=== PATIENT | female | born 1960 | race Caucasian/White ===

== ENCOUNTER 2019-09-30 18:26 | Emergency (ER) | payer SELFPAY ==
[2019-09-30 19:10] LABS: ABSOLUTE BASOPHILS # (AUTO) 0.1 10^3/uL (0.0-0.2); ABSOLUTE EOSINOPHILS # (AUTO) 0.1 10^3/uL (0.0-0.6); ABSOLUTE LYMPHOCYTES (AUTO) 2.5 10^3/uL (0.5-4.7); ABSOLUTE MONOCYTES (AUTO) 1.1 10^3/uL (0.1-1.4); ABSOLUTE NEUT (AUTO) 12.5 10^3/uL (1.7-8.2); BASOPHILS % (AUTO) 0.5 % (0-2); EOSINOPHILS % (AUTO) 0.4 % (0-6); HEMATOCRIT 39.8 % (36.0-47.0); HEMOGLOBIN 13.2 g/dL (12.0-15.5); LYMPHOCYTES % (AUTO) 15.2 % (13-45); MEAN CORPUSCULAR HEMOGLOBIN 29.9 pg (27.0-33.4); MEAN CORPUSCULAR HGB CONC 33.2 g/dL (32.0-36.0); MEAN CORPUSCULAR VOLUME 90 fl (80-97); PLATELET COUNT 274 10^3/uL (150-450); RED BLOOD COUNT 4.43 10^6/uL (3.72-5.28); RED CELL DISTRIBUTION WIDTH 13.7 % (11.5-14.0); SEGMENTED NEUTROPHILS % (AUTO) 76.9 % (42-78); TOTAL CELLS COUNTED % (AUTO) 100 %; WHITE BLOOD COUNT 16.3 10^3/uL (4.0-10.5)
[2019-09-30 19:29] LABS: ALBUMIN 3.4 g/dL (3.5-5.0); ALKALINE PHOSPHATASE 163 U/L (38-126); ANION GAP 12 (5-19); ASPARTATE AMINO TRANSFERASE 17 U/L (14-36); BILIRUBIN,DIRECT 0.3 mg/dL (0.0-0.4); BILIRUBIN,TOTAL 0.3 mg/dL (0.2-1.3); BLOOD UREA NITROGEN 25 mg/dL (7-20); CALCIUM 9.3 mg/dL (8.4-10.2); CARBON DIOXIDE 22 mmol/L (22-30); CHLORIDE 102 mmol/L (98-107); POTASSIUM 4.1 mmol/L (3.6-5.0); TOTAL PROTEIN 6.4 g/dL (6.3-8.2)
[2019-09-30 19:37] LABS: GLUCOSE 411 mg/dL (75-110)
[2019-09-30] MEDS ORDERED: NORMAL SALINE 1000 ML 1,000 ML IV ONE (19:49)
--- NOTE | 2019-09-30 19:55 | ER Document Report ---
ED Medical Screen (RME) - General Chief Complaint: High Blood Sugar Stated Complaint: WEAKNESS Notes: Patient presents complaining of leg pain and being off her diabetic medications. Patient with elevated blood sugar. I have greeted and performed a rapid initial assessment of this patient. A comprehensive ED assessment and evaluation of the patient, analysis of test results and completion of the medical decision making process will be conducted by additional ED providers. - Related Data Allergies/Adverse Reactions: Penicillins Allergy (Verified 09/30/19 18:52) pregabalin [From Lyrica] Allergy (Verified 09/30/19 18:52) fentanyl Adverse Reaction (Verified 09/30/19 18:52) ketorolac [From Toradol] Adverse Reaction (Verified 09/30/19 18:52) Past Medical History - Past Medical History Cardiac Medical History: Reports: Hx Hypertension Endocrine Medical History: Reports: Hx Diabetes Mellitus Type 2 Past Surgical History: Reports: Hx Orthopedic Surgery - R foot bone biopsy Physical Exam - Vital signs Vitals: Temp Resp BP Pulse Ox 99.4 F 14 177/100 H 100 09/30/19 18:37 09/30/19 18:37 09/30/19 18:37 09/30/19 18:37 - General General appearance: Appears well, Alert Notes: Right lower extremity pain, no obvious edema or wound noted to foot Course - Vital Signs Vital signs: Temp Pulse Resp BP Pulse Ox 99.4 F 17 177/100 H 100 09/30/19 18:37 09/30/19 18:38 09/30/19 18:37 09/30/19 18:38 - Laboratory Result Diagrams: 09/30/19 18:55 09/30/19 18:55 Laboratory results interpreted by me: 09/30/19 09/30/19 09/30/19 18:55 18:55 19:03 WBC 16.3 H Absolute Neuts (auto) 12.5 H Sodium 136.4 L BUN 25 H Glucose 411 H* POC Glucose 389 H Alkaline Phosphatase 163 H Albumin 3.4 L
[2019-09-30 20:03] LABS: VENOUS BLOOD PCO2 38.2 mmHg (35-63); VENOUS BLOOD PH 7.36 (7.30-7.42)
[2019-09-30] MEDS ORDERED: OXYCODONE-ACETAMINOPHEN 5-325 MG TABLET PO ONE ×2 (20:24→23:52)
--- NOTE | 2019-09-30 20:32 | ER Document Report ---
ED General - General Chief Complaint: High Blood Sugar Stated Complaint: WEAKNESS Time Seen by Provider: 09/30/19 20:10 - HPI Notes: Ms. Blackmon is a 59-year-old female with longstanding history of diabetes mellitus type 2, COPD, peripheral vascular disease, osteoarthritis and chronic pain syndrome. She has moved here from [place] recently to live with her daughter and has been here for about 30 days but has yet to find a physician. She is not been on any of her usual medications. She comes in tonight with multiple complaints including high blood sugars, polyuria, generalized weakness and chronic pain which is worsening in both feet right rater than left. Patient reports that she is been on hydrocodone and oxycodone in the past and she is specifically requesting these. States she was treated in the past with Lyrica and did not tolerate this. She says she was previously taking Lantus 28 units at night for her diabetes. Patient denies vomiting, fever, chills or chest pain. She says she is dyspneic with exertion. She denies any sputum production. She is presently smoking 3 to 4 cigarettes/day. - Related Data Allergies/Adverse Reactions: Penicillins Allergy (Verified 09/30/19 18:52) pregabalin [From Lyrica] Allergy (Verified 09/30/19 18:52) fentanyl Adverse Reaction (Verified 09/30/19 18:52) ketorolac [From Toradol] Adverse Reaction (Verified 09/30/19 18:52) Past Medical History - General Information source: Patient - Social History Smoking Status: Current Every Day Smoker Frequency of alcohol use: Rare Drug Abuse: None Lives with: Family Family History: Reviewed & Not Pertinent Patient has suicidal ideation: No Patient has homicidal ideation: No - Past Medical History Cardiac Medical History: Reports: Hx Hypertension Pulmonary Medical History: Reports: Hx COPD Endocrine Medical History: Reports: Hx Diabetes Mellitus Type 2 Musculoskeletal Medical History: Reports Hx Arthritis Past Surgical History: Reports: Hx Section, Hx Hysterectomy, Hx Orthopedic Surgery - R foot bone biopsy Review of Systems - Review of Systems Notes: Constitutional: Negative for fever. HENT: Negative for sore throat. Eyes: Negative for visual changes. Cardiovascular: Negative for chest pain. Respiratory: As per HPI. Gastrointestinal: Negative for abdominal pain, vomiting or diarrhea. Genitourinary: As per HPI. Musculoskeletal: As per HPI. Skin: Negative for rash. Neurological: Negative for headaches, weakness or numbness. 10 point ROS negative except as marked above and in HPI. Physical Exam - Vital signs Vitals: Temp Resp BP Pulse Ox 99.4 F 14 177/100 H 100 09/30/19 18:37 09/30/19 18:37 09/30/19 18:37 09/30/19 18:37 - Notes Notes: GENERAL: Chronically ill-appearing female of approximately stated age who has very flat affect. SKIN: Good turgor no rashes. HEAD: Normocephalic atraumatic. EYES: PERRLA. EOMI. Conjunctivae and sclerae clear. EARS: CANALS AND TMS CLEAR. NOSE: CLEAR. MOUTH: Moist mucosa. Good dentition. No stridor or edema. No drooling. NECK: Supple. No masses or thyromegaly. No adenopathy. Carotids 2+ without b ruits. No JVD. BACK: Symmetrical without tenderness. CHEST: Respirations unlabored. Breath sounds clear and symmetrical. HEART: Regular rhythm. No murmur gallop or rub. ABDOMEN: Mild suprapubic tenderness. Soft without masses, organomegaly or rebound. Bowel sounds normally active. No bruits. GENITALIA: Deferred. EXTREMITIES: No edema. No calf tenderness. Cap refill less than 1.5 seconds. Dorsalis pedis and posterior tibial pulses 1+ + and symmetrical. Feet are warm and well perfused. No ulcerations present. NEUROLOGICAL: GCS 15. Alert and oriented x3. Fluent speech. Cranial nerves II through XII intact. Sensorimotor and cerebellar normal. Normal tone. PSYCHIATRIC: Appropriate affect. Course - Re-evaluation Re-evalutation: 09/30/19 20:34 Patient's blood sugar is elevated but she is not in DKA. Plan at this time is to hydrate her with IV saline. We get her sugar down below 350 I think she can be reasonably managed as an outpatient. Her chest is clear she is oxygenating normally and is in no respiratory distress. She undoubtedly has significant COPD and peripheral vascular disease and has chronic pain syndrome of multifactorial etiology possibly related to peripheral vascular disease and osteoarthritis primarily. I again strongly advised her to stop smoking. Anticipate discharge home and referral to a primary care physician. I have given her 1 dose of oral Percocet here. I am also going to check a urinalysis to be sure she does not have a urinary tract infection. 09/30/19 21:35 After normal saline hydration the patient's blood sugar is 240. She does have evidence of a urinary tract infection. I am going to start her on Macrobid and restart her Lantus. We will refer her to a primary care physician for follow- up. Instructed to stop smoking. We will write 6 tablets of Percocet for her until she can be seen by primary care doctor. - Vital Signs Vital signs: Temp Pulse Resp BP Pulse Ox 98.2 F 22 H 140/75 H 94 09/30/19 21:22 09/30/19 21:01 09/30/19 21:01 09/30/19 21:01 - Laboratory Result Diagrams: 09/30/19 18:55 09/30/19 18:55 Laboratory results interpreted by me: 09/30/19 09/30/19 09/30/19 18:55 18:55 19:03 WBC 16.3 H Absolute Neuts (auto) 12.5 H Sodium 136.4 L BUN 25 H Glucose 411 H* POC Glucose 389 H Alkaline Phosphatase 163 H Albumin 3.4 L Urine Protein Urine Glucose (UA) Urine Blood Urine Ascorbic Acid 09/30/19 09/30/19 20:44 21:27 WBC Absolute Neuts (auto) Sodium BUN Glucose POC Glucose 270 H Alkaline Phosphatase Albumin Urine Protein >=500 H Urine Glucose (UA) >=500 H Urine Blood SMALL H Urine Ascorbic Acid 20 H Discharge - Discharge Clinical Impression: Diabetes mellitus type 2 uncontrolled, Noncompliance, Urinary tract infection, Chronic pain syndrome Condition: Stable Disposition: HOME, SELF-CARE Additional Instructions: Restart prescribed medications. Follow-up with referral doctor soon as possible. Return here as needed. Return here as needed for new or worsening symptoms: Pain that is worsening or unimproved Uncontrolled vomiting High fever or shaking chills Overall worsening Prescriptions: Insulin Glargine,Hum.rec.anlog [Lantus (Pyxis) Insulin 100 Unit/1 ml 10 ml] 28 unit SUBCUT QHS 30 Days #1 bottle Nitrofurantoin/Nitrofuran Mac [Macrobid 100 mg Capsule] 1 tab PO BID #20 capsule Oxycodone HCl/Acetaminophen [Percocet 5-325 mg Tablet] 1 - 2 tab PO Q4H PRN #15 tablet PRN Reason: Oxycodone HCl/Acetaminophen [Percocet 5-325 mg Tablet] 1 - 2 tab PO Q6H PRN #15 tablet PRN Reason: Referrals: [facility] [Provider Group] - Follow up as needed
[2019-09-30 21:12] LABS: APPEARANCE,URINE SLIGHTLY-CLOUDY; BILIRUBIN,URINE NEGATIVE (NEGATIVE); COLOR,URINE YELLOW; GLUCOSE, URINE >=500 mg/dL (NEGATIVE); KETONES,URINE NEGATIVE (NEGATIVE); PROTEIN,URINE >=500 mg/dL (NEGATIVE); URINE SPECIFIC GRAVITY 1.026; UROBILINOGEN,URINE NEGATIVE mg/dL (<2.0)
[2019-10-01 00:15] VITALS: BP 133/98
== END 2019-10-01 00:13 | disposition home or self-care (01) ==
LOC: ER 18:26
DX: E11.65 Type 2 diabetes mellitus with hyperglycemia (principal); E11.51 Type 2 diabetes mellitus with diabetic peripheral angiopathy without gangrene; N39.0 Urinary tract infection, site not specified; G89.4 Chronic pain syndrome; M79.671 Pain in right foot; M79.672 Pain in left foot; J44.9 Chronic obstructive pulmonary disease, unspecified; R53.1 Weakness; I10 Essential (primary) hypertension; F17.210 Nicotine dependence, cigarettes, uncomplicated; R06.09 Other forms of dyspnea; Z88.0 Allergy status to penicillin; Z88.6 Allergy status to analgesic agent
CPT/HCPCS: 99283; 96360; 36415; 87086; 82962; 85025; 87088; 80053; 81001; 87186; 82803; J7030

== ENCOUNTER 2019-10-12 18:10 | Emergency (ER) | payer SELFPAY ==
[2019-10-12 18:42] LABS: ABSOLUTE BASOPHILS # (AUTO) 0.2 10^3/uL (0.0-0.2); ABSOLUTE EOSINOPHILS # (AUTO) 0.1 10^3/uL (0.0-0.6); ABSOLUTE LYMPHOCYTES (AUTO) 2.3 10^3/uL (0.5-4.7); ABSOLUTE NEUT (AUTO) 14.4 10^3/uL (1.7-8.2); BASOPHILS % (AUTO) 1.1 % (0-2); EOSINOPHILS % (AUTO) 0.4 % (0-6); HEMATOCRIT 38.3 % (36.0-47.0); LYMPHOCYTES % (AUTO) 12.9 % (13-45); MEAN CORPUSCULAR HEMOGLOBIN 29.9 pg (27.0-33.4); MEAN CORPUSCULAR HGB CONC 33.9 g/dL (32.0-36.0); MEAN CORPUSCULAR VOLUME 88 fl (80-97); MONOCYTES % (AUTO) 5.7 % (3-13); PLATELET COUNT 183 10^3/uL (150-450); RED BLOOD COUNT 4.34 10^6/uL (3.72-5.28); RED CELL DISTRIBUTION WIDTH 13.4 % (11.5-14.0); SEGMENTED NEUTROPHILS % (AUTO) 79.9 % (42-78); TOTAL CELLS COUNTED % (AUTO) 100 %
[2019-10-12 18:59] LABS: ALBUMIN 2.8 g/dL (3.5-5.0); ALKALINE PHOSPHATASE 135 U/L (38-126); ANION GAP 6 (5-19); ASPARTATE AMINO TRANSFERASE 16 U/L (14-36); BILIRUBIN,TOTAL 0.2 mg/dL (0.2-1.3); BLOOD UREA NITROGEN 34 mg/dL (7-20); CALCIUM 8.2 mg/dL (8.4-10.2); CARBON DIOXIDE 22 mmol/L (22-30); CHLORIDE 103 mmol/L (98-107); POTASSIUM 4.2 mmol/L (3.6-5.0); TOTAL PROTEIN 5.2 g/dL (6.3-8.2)
[2019-10-12 19:10] LABS: GLUCOSE 428 mg/dL (75-110)
--- NOTE | 2019-10-12 20:13 | ER Document Report ---
ED General - General Chief Complaint: High Blood Sugar Stated Complaint: WEAKNESS Time Seen by Provider: 10/12/19 20:10 Mode of Arrival: Medic Information source: Patient TRAVEL OUTSIDE OF THE [place] IN LAST 30 DAYS: No - HPI Onset: Other - patient has been out of her medications for a month but her sugar has been very high in the last few days Onset/Duration: Gradual Quality of pain: Other - patient has chronic back and leg pains Severity: Moderate Pain Level: 3 Associated symptoms: Weakness, Other - high blood sugars, chronic back and leg pains Exacerbated by: Denies Relieved by: Denies Similar symptoms previously: Yes - patient has chronic pain and chronic DM Recently seen / treated by doctor: No Notes: 59 year old female with a history of DM, HTN, COPD, Chronic Back and Leg Pains, Arthritis here for high blood sugars and chronic back and leg pains in the setting of recently moving to the area and not having a doctor or any of her medications. The patient says she has been out of her medications for over a month. The patient endorses some mild chills and subjective fevers yesterday along with some generalized weakness. The patient is asking for pain medications during my exam. - Related Data Allergies/Adverse Reactions: Penicillins Allergy (Verified 09/30/19 18:52) pregabalin [From Lyrica] Allergy (Verified 09/30/19 18:52) fentanyl Adverse Reaction (Verified 09/30/19 18:52) ketorolac [From Toradol] Adverse Reaction (Verified 09/30/19 18:52) Past Medical History - General Information source: Patient - Social History Smoking Status: Current Every Day Smoker Frequency of alcohol use: Occasional Drug Abuse: None Lives with: Family Family History: Reviewed & Not Pertinent Patient has suicidal ideation: No Patient has homicidal ideation: No - Past Medical History Cardiac Medical History: Reports: Hx Hypertension Pulmonary Medical History: Reports: Hx COPD Endocrine Medical History: Reports: Hx Diabetes Mellitus Type 2 Musculoskeletal Medical History: Reports Hx Arthritis Past Surgical History: Reports: Hx Section, Hx Hysterectomy, Hx Orthopedic Surgery - R foot bone biopsy Review of Systems - Review of Systems Constitutional: Chills, Fever, Weakness, Other - high blood sugars EENT: No symptoms reported Cardiovascular: No symptoms reported Respiratory: Cough Gastrointestinal: Abdominal pain Genitourinary: Frequency, Urgency Female Genitourinary: No symptoms reported Musculoskeletal: Other - chronic back and leg pains Skin: No symptoms reported Hematologic/Lymphatic: No symptoms reported Neurological/Psychological: No symptoms reported -: Yes All other systems reviewed and negative Physical Exam - Vital signs Vitals: Resp Pulse Ox 25 H 97 10/12/19 18:49 10/12/19 18:49 - Notes Notes: GENERAL: Well-appearing, well-nourished and in no acute distress. HEAD: Atraumatic, normocephalic. EYES: Pupils equal round and reactive to light, extraocular movements intact, sclera anicteric, conjunctiva are normal. ENT: TMs normal, nares patent, oropharynx clear without exudates. Moist mucous membranes. NECK: Normal range of motion, supple without lymphadenopathy or JVD. LUNGS: Breath sounds clear to auscultation bilaterally and equal. No wheezes r ales or rhonchi. HEART: Regular rate and rhythm without murmurs, rubs or gallops. ABDOMEN: Soft, nontender, normoactive bowel sounds. No guarding, no rebound. No masses appreciated. EXTREMITIES: Normal range of motion, no pitting or edema. No clubbing or cyanosis. NEUROLOGICAL: Cranial nerves II through XII grossly intact. Normal speech, normal gait. PSYCH: Normal mood, normal affect. SKIN: Warm, Dry, normal turgor, no rashes or lesions noted. Course - Re-evaluation Re-evalutation: 10/12/19 22:45 The patient is not in DKA and her hyperglycemia is clearly due to noncompliance. The patient requested pain medications on several occasions and she has a suspect allergy profile. Patient was treated with fluids, Insulin, and Tramadol. Patient's WBC is elevated but no source of infection found in the ER. 10/13/19 00:35 The patient has a UTI by UA. Will culture and treat with 1 week of Cipro since she says she has some back flank pain with her urinary symptoms. Patient's blood sugar came down to the 100s with fluids and insulin. Will refer to local PCPs. Patient also told to go to a pain clinic for her chronic pain issues. - Vital Signs Vital signs: Temp Pulse Resp BP Pulse Ox 16 202/160 H 99 10/12/19 23:04 10/12/19 23:04 10/12/19 23:04 - Laboratory Result Diagrams: 10/12/19 18:27 10/12/19 18:27 Laboratory results interpreted by me: 10/12/19 10/12/19 10/12/19 18:18 18:27 18:27 WBC 18.0 H Lymph % (Auto) 12.9 L Absolute Neuts (auto) 14.4 H Seg Neutrophils % 79.9 H Sodium 131.4 L BUN 34 H Glucose 428 H* POC Glucose 435 H* Calcium 8.2 L Alkaline Phosphatase 135 H Total Protein 5.2 L Albumin 2.8 L Urine Protein Urine Glucose (UA) Urine Blood Ur Leukocyte Esterase 10/12/19 10/12/19 10/12/19 20:19 23:33 23:35 WBC Lymph % (Auto) Absolute Neuts (auto) Seg Neutrophils % Sodium BUN Glucose POC Glucose 319 H 135 H Calcium Alkaline Phosphatase Total Protein Albumin Urine Protein >=500 H Urine Glucose (UA) >=500 H Urine Blood SMALL H Ur Leukocyte Esterase SMALL H Discharge - Discharge Clinical Impression: Hyperglycemia, Noncompliance UTI (urinary tract infection) Qualifiers: Urinary tract infection type: site unspecified Hematuria presence: without hematuria Qualified Code(s): N39.0 - Urinary tract infection, site not specified Hypertension Qualifiers: Hypertension type: essential hypertension Qualified Code(s): I10 - Essential (primary) hypertension Condition: Stable Disposition: HOME, SELF-CARE Instructions: Urinary Tract Infection ([facility]), High Blood Pressure ([facility]), Hyperglycemia ([facility]) Additional Instructions: Take antibiotics as prescribed since you have a UTI. You need a primary care doctor for management of your chronic diseases such as hypertension and diabetes. Call one of the providers listed in your discharge paperwork to set up an outpatient follow up appointment. Consider follow up with a pain clinic for your chronic pain. Prescriptions: Ciprofloxacin HCl [Cipro 500 mg Tablet] 500 mg PO BID #14 tablet Referrals: NORA GARZA MD [ACTIVE STAFF] - Follow up as needed PAYAL HERNANDEZ MD [HONORARY] - Follow up as needed
[2019-10-12] MEDS: NORMAL SALINE 1000 ML 1,000 ML IV PRN ×2 (20:23→21:40)
[2019-10-12] MEDS ORDERED: INSULIN REG, HUMAN 100 UNIT/ML 3 ML VIAL (PYX) SUBCUT ONE (20:49)
[2019-10-12] MEDS ORDERED: TRAMADOL HCL 50 MG TABLET PO ONE (20:53)
--- NOTE | 2019-10-12 22:02 | RADIOLOGY REPORT (SQ) ---
EXAM DESCRIPTION: [facility]: XR CHEST 2 VIEWS Views: 2 CLINICAL HISTORY: 59 years Female; eval for pneumonia; COMPARISON: None. FINDINGS: Lungs: Lungs are clear, with no focal infiltrate, pneumothorax, or pleural effusion. Mediastinum: Heart size is normal. Coronary artery stent is noted. Pacemaker is noted, with intact leads extending into right atrium and ventricle. No mediastinal widening or shift. Bones: Bony structures are unremarkable. IMPRESSION: 1. No acute pulmonary findings 2. Pacemaker 3. Previous coronary artery stent
[2019-10-12 23:53] LABS: APPEARANCE,URINE SLIGHTLY-CLOUDY; BILIRUBIN,URINE NEGATIVE (NEGATIVE); COLOR,URINE YELLOW; GLUCOSE, URINE >=500 mg/dL (NEGATIVE); KETONES,URINE NEGATIVE (NEGATIVE); LEUKOCYTE ESTERASE,URINE SMALL (NEGATIVE); NITRITE,URINE NEGATIVE (NEGATIVE); PROTEIN,URINE >=500 mg/dL (NEGATIVE); URINE SPECIFIC GRAVITY 1.011; UROBILINOGEN,URINE NEGATIVE mg/dL (<2.0)
[2019-10-13 00:03] LABS: URINE AMPHETAMINES SCREEN NEGATIVE; URINE BARBITURATES SCREEN NEGATIVE; URINE BENZODIAZEPINES SCREEN NEGATIVE; URINE COCAINE SCREEN NEGATIVE; URINE MARIJUANA (THC) SCREEN NEGATIVE; URINE METHADONE SCREEN NEGATIVE; URINE PHENCYCLIDINE SCREEN NEGATIVE
[2019-10-13] MEDS ORDERED: HYDROCODONE/ACETAMINOPHEN 5-325 MG TABLET PO ONE (00:39)
[2019-10-13] MEDS ORDERED: METOPROLOL TARTRATE 100 MG TABLET PO ONE (00:41)
[2019-10-13 01:19] VITALS: BP 162/70
== END 2019-10-13 01:19 | disposition home or self-care (01) ==
LOC: ER 18:10
DX: N39.0 Urinary tract infection, site not specified (principal); E11.65 Type 2 diabetes mellitus with hyperglycemia; F17.200 Nicotine dependence, unspecified, uncomplicated; I10 Essential (primary) hypertension; J44.9 Chronic obstructive pulmonary disease, unspecified; G89.29 Other chronic pain; Z90.710 Acquired absence of both cervix and uterus; Z88.0 Allergy status to penicillin
CPT/HCPCS: 99284; 96360; 96361; 36415; 87086; 82962; 85025; 87088; 80053; 81001; 80307; 71046; J1815; J7030; 87186

== ENCOUNTER 2019-10-20 20:01 | Emergency (ER) | payer SELFPAY ==
[2019-10-20 21:17] LABS: ABSOLUTE BASOPHILS # (AUTO) 0.1 10^3/uL (0.0-0.2); ABSOLUTE EOSINOPHILS # (AUTO) 0.1 10^3/uL (0.0-0.6); ABSOLUTE LYMPHOCYTES (AUTO) 3.4 10^3/uL (0.5-4.7); ABSOLUTE MONOCYTES (AUTO) 0.9 10^3/uL (0.1-1.4); ABSOLUTE NEUT (AUTO) 13.6 10^3/uL (1.7-8.2); BASOPHILS % (AUTO) 0.4 % (0-2); EOSINOPHILS % (AUTO) 0.7 % (0-6); HEMATOCRIT 43.9 % (36.0-47.0); HEMOGLOBIN 14.8 g/dL (12.0-15.5); LYMPHOCYTES % (AUTO) 18.6 % (13-45); MEAN CORPUSCULAR HEMOGLOBIN 30.1 pg (27.0-33.4); MEAN CORPUSCULAR HGB CONC 33.7 g/dL (32.0-36.0); MEAN CORPUSCULAR VOLUME 89 fl (80-97); MONOCYTES % (AUTO) 5.1 % (3-13); PLATELET COUNT 258 10^3/uL (150-450); RED BLOOD COUNT 4.91 10^6/uL (3.72-5.28); RED CELL DISTRIBUTION WIDTH 14.2 % (11.5-14.0); SEGMENTED NEUTROPHILS % (AUTO) 75.2 % (42-78); TOTAL CELLS COUNTED % (AUTO) 100 %
[2019-10-20 21:31] LABS: ALBUMIN 3.3 g/dL (3.5-5.0); ALKALINE PHOSPHATASE 170 U/L (38-126); ANION GAP 10 (5-19); ASPARTATE AMINO TRANSFERASE 18 U/L (14-36); BILIRUBIN,DIRECT 0.3 mg/dL (0.0-0.4); BILIRUBIN,TOTAL 0.3 mg/dL (0.2-1.3); BLOOD UREA NITROGEN 35 mg/dL (7-20); CALCIUM 9.5 mg/dL (8.4-10.2); CARBON DIOXIDE 24 mmol/L (22-30); CHLORIDE 97 mmol/L (98-107); POTASSIUM 4.9 mmol/L (3.6-5.0); TOTAL PROTEIN 6.1 g/dL (6.3-8.2)
[2019-10-20 21:41] LABS: GLUCOSE 535 mg/dL (75-110)
[2019-10-20 21:59] LABS: APPEARANCE,URINE CLEAR; BILIRUBIN,URINE NEGATIVE (NEGATIVE); COLOR,URINE STRAW; GLUCOSE, URINE >=500 mg/dL (NEGATIVE); KETONES,URINE NEGATIVE (NEGATIVE); LEUKOCYTE ESTERASE,URINE NEGATIVE (NEGATIVE); NITRITE,URINE NEGATIVE (NEGATIVE); PROTEIN,URINE >=500 mg/dL (NEGATIVE); URINE SPECIFIC GRAVITY 1.023; UROBILINOGEN,URINE NEGATIVE mg/dL (<2.0)
[2019-10-20] MEDS ORDERED: INSULIN REG, HUMAN 100 UNIT/ML 3 ML VIAL (PYX) SUBCUT ONE (23:52)
[2019-10-20] MEDS ORDERED: NORMAL SALINE 1000 ML 1,000 ML IV ONE (23:53)
[2019-10-21] MEDS ORDERED: TRAMADOL HCL 50 MG TABLET PO ONE (00:22)
[2019-10-21] MEDS ORDERED: INSULIN REG, HUMAN 100 UNIT/ML 3 ML VIAL (PYX) SUBCUT ONE (00:53)
--- NOTE | 2019-10-21 00:56 | ER Document Report ---
ED General - General Chief Complaint: Abdominal Pain Stated Complaint: ABDOMINAL PAIN,HEADACHE Time Seen by Provider: 10/20/19 23:29 TRAVEL OUTSIDE OF THE [place] IN LAST 30 DAYS: Yes - Related Data Allergies/Adverse Reactions: Penicillins Allergy (Verified 09/30/19 18:52) pregabalin [From Lyrica] Allergy (Verified 09/30/19 18:52) fentanyl Adverse Reaction (Verified 09/30/19 18:52) ketorolac [From Toradol] Adverse Reaction (Verified 09/30/19 18:52) Past Medical History - Social History Smoking Status: Current Every Day Smoker Chew tobacco use (# tins/day): No Frequency of alcohol use: None Drug Abuse: None Family History: Reviewed & Not Pertinent Patient has suicidal ideation: No Patient has homicidal ideation: No - Past Medical History Cardiac Medical History: Reports: Hx Hypercholesterolemia, Hx Hypertension Pulmonary Medical History: Reports: Hx COPD Endocrine Medical History: Reports: Hx Diabetes Mellitus Type 2 Musculoskeletal Medical History: Reports Hx Arthritis Psychiatric Medical History: Reports: Hx Depression Past Surgical History: Reports: Hx Section, Hx Hysterectomy, Hx Orthope dic Surgery - R foot bone biopsy Review of Systems - Review of Systems Constitutional: No symptoms reported EENT: No symptoms reported Cardiovascular: No symptoms reported Respiratory: No symptoms reported Gastrointestinal: Abdominal pain Genitourinary: No symptoms reported Female Genitourinary: No symptoms reported Musculoskeletal: No symptoms reported Skin: No symptoms reported Hematologic/Lymphatic: No symptoms reported Neurological/Psychological: No symptoms reported -: Yes All other systems reviewed and negative Physical Exam - Vital signs Vitals: Pulse Ox 96 10/20/19 20:10 - Notes Notes: GENERAL: Well-appearing, well-nourished and in no acute distress. HEAD: Atraumatic, normocephalic. EYES: Pupils equal round and reactive to light, extraocular movements intact, sclera anicteric, conjunctiva are normal. ENT: TMs normal, nares patent, oropharynx clear without exudates. Moist mucous membranes. NECK: Normal range of motion, supple without lymphadenopathy or JVD. LUNGS: Breath sounds clear to auscultation bilaterally and equal. No wheezes rales or rhonchi. HEART: Regular rate and rhythm without murmurs, rubs or gallops. ABDOMEN: Soft, mild diffuse tenderness which seems subjective on exam. Normoactive bowel sounds. No guarding, no rebound. No masses appreciated. EXTREMITIES: Normal range of motion, no pitting or edema. No clubbing or cyanosis. NEUROLOGICAL: Cranial nerves II through XII grossly intact. Normal speech, normal gait. PSYCH: Normal mood, normal affect. SKIN: Warm, Dry, normal turgor, no rashes or lesions noted. Course - Re-evaluation Re-evalutation: 10/21/19 02:00 The patient has diabetes and she does not take any medications due to financial issues. The patient also has chronic pain in her back legs and abdomen. I saw the patient for the same issues on Oct 12 and I provided her with PCP follow up with a script for Cipro. The patient did not follow up and she did not fill the script for Cipro. Patient requested pain medication her entire ER stay once again this visit. The patient was once again provided with information for PCP follow up. Patient was treated with fluids and insulin until her blood sugar came down to the 100s. The patient has had a stable high leukocytosis for 2 months now. Her urine culture from Oct 12 grew out enterococcus which is susceptile to Cipro and Bactrim. Patient claims she cannot afford Cipro so will given bactrim today. - Vital Signs Vital signs: Temp Pulse Resp BP Pulse Ox 97.7 F 97 26 H 127/83 H 95 10/20/19 23:01 10/20/19 20:19 10/21/19 01:01 10/21/19 01:01 10/21/19 01:01 - Laboratory Result Diagrams: 10/20/19 20:00 10/20/19 20:00 Laboratory results interpreted by me: 10/20/19 10/20/19 10/20/19 20:00 20:00 21:20 WBC 18.0 H RDW 14.2 H Absolute Neuts (auto) 13.6 H Sodium 131.2 L Chloride 97 L BUN 35 H Est GFR (MDRD) Non-Af 57 L Glucose 535 H* POC Glucose Alkaline Phosphatase 170 H Total Protein 6.1 L Albumin 3.3 L Lipase 500.4 H Urine Protein >=500 H Urine Glucose (UA) >=500 H 10/21/19 01:44 WBC RDW Absolute Neuts (auto) Sodium Chloride BUN Est GFR (MDRD) Non-Af Glucose POC Glucose 187 H Alkaline Phosphatase Total Protein Albumin Lipase Urine Protein Urine Glucose (UA) Discharge - Discharge Clinical Impression: Hyperglycemia Leukocytosis Qualifiers: Leukocytosis type: unspecified Qualified Code(s): D72.829 - Elevated white blood cell count, unspecified Abdominal pain Qualifiers: Abdominal location: generalized Qualified Code(s): R10.84 - Generalized abdominal pain Condition: Stable Disposition: HOME, SELF-CARE Instructions: Abdominal Pain ([facility]), Diabetes ([facility]) Additional Instructions: You have several chronic conditions including but not limited to diabetes and chronic pain. You absolutely need to follow up with a primary care doctor (several are listed) for management of your diabetes and chronic pain. You need to be on important medications such as insulin and you need a primary care doctor to prescribe this for you based on your hemoglobin A1C level and previous doses. Prescriptions: Sulfamethoxazole/Trimethoprim [Bactrim Ds Tablet] 2 tab PO BID #28 tablet
[2019-10-21] MEDS ORDERED: INSULIN GLARGINE,HUM.REC.ANLOG 1,000 UNIT/10 ML VIAL SUBCUT SCH (08:00)
[2019-10-21 10:49] VITALS: BP 145/86
== END 2019-10-21 10:27 | disposition home or self-care (01) ==
LOC: ER 20:01
DX: R10.84 Generalized abdominal pain (principal); M54.9 Dorsalgia, unspecified; M79.604 Pain in right leg; M79.605 Pain in left leg; G89.29 Other chronic pain; E11.65 Type 2 diabetes mellitus with hyperglycemia; R82.71 Bacteriuria; T36.8X6A Underdosing of other systemic antibiotics, initial encounter; Z91.120 Patient's intentional underdosing of medication regimen due to financial hardship; Z91.14 Patient's other noncompliance with medication regimen; D72.829 Elevated white blood cell count, unspecified; I10 Essential (primary) hypertension; J44.9 Chronic obstructive pulmonary disease, unspecified; Z88.0 Allergy status to penicillin; Z88.6 Allergy status to analgesic agent; Z59.0 Homelessness
CPT/HCPCS: 36415; 82962; 83605; 83690; 85025; 80053; 81001; J1815; J7030

== ENCOUNTER 2019-10-28 07:02 | Emergency (ER) | payer SELFPAY ==
[2019-10-28] MEDS ORDERED: OXYCODONE-ACETAMINOPHEN 5-325 MG TABLET PO ONE (08:36)
--- NOTE | 2019-10-28 09:21 | RADIOLOGY REPORT (SQ) ---
EXAM DESCRIPTION: CHEST 2 VIEWS COMPLETED DATE/TIME: 10/28/2019 9:13 am REASON FOR STUDY: sob/cough COMPARISON: 10/12/2019 EXAM PARAMETERS: NUMBER OF VIEWS: two views TECHNIQUE: Digital Frontal and Lateral radiographic views of the chest acquired. RADIATION DOSE: NA LIMITATIONS: none FINDINGS: LUNGS AND PLEURA: No opacities, masses or pneumothorax. No pleural effusion. MEDIASTINUM AND HILAR STRUCTURES: No masses or contour abnormalities. HEART AND VASCULAR STRUCTURES: Heart normal size. No evidence for failure. BONES: No acute findings. HARDWARE: Battery pack and leads remain in place. OTHER: No other significant finding. IMPRESSION: NO ACUTE RADIOGRAPHIC FINDING IN THE CHEST. TECHNICAL DOCUMENTATION: JOB ID: [id number] 2010 [employer]- All Rights Reserved Reading location - IP/workstation name: [email or web address]
[2019-10-28 11:06] LABS: ALBUMIN 3.2 g/dL (3.5-5.0); ALKALINE PHOSPHATASE 151 U/L (38-126); ANION GAP 8 (5-19); ASPARTATE AMINO TRANSFERASE 23 U/L (14-36); BILIRUBIN,DIRECT 0.1 mg/dL (0.0-0.4); BILIRUBIN,TOTAL 0.4 mg/dL (0.2-1.3); BLOOD UREA NITROGEN 46 mg/dL (7-20); CARBON DIOXIDE 24 mmol/L (22-30); CHLORIDE 97 mmol/L (98-107); GLUCOSE 357 mg/dL (75-110); POTASSIUM 5.1 mmol/L (3.6-5.0); TOTAL PROTEIN 6.1 g/dL (6.3-8.2)
[2019-10-28 11:18] LABS: TROPONIN I 0.013 ng/mL
[2019-10-28] MEDS ORDERED: HYDROMORPHONE HCL INJ/PF 2 MG/ML AMPULE IM ONE (12:21)
[2019-10-28 12:45] LABS: ABSOLUTE BASOPHILS # (AUTO) 0.1 10^3/uL (0.0-0.2); ABSOLUTE EOSINOPHILS # (AUTO) 0.1 10^3/uL (0.0-0.6); ABSOLUTE LYMPHOCYTES (AUTO) 2.7 10^3/uL (0.5-4.7); ABSOLUTE MONOCYTES (AUTO) 0.9 10^3/uL (0.1-1.4); ABSOLUTE NEUT (AUTO) 7.2 10^3/uL (1.7-8.2); BASOPHILS % (AUTO) 0.5 % (0-2); EOSINOPHILS % (AUTO) 0.9 % (0-6); HEMOGLOBIN 12.9 g/dL (12.0-15.5); LYMPHOCYTES % (AUTO) 24.8 % (13-45); MEAN CORPUSCULAR HEMOGLOBIN 29.7 pg (27.0-33.4); MEAN CORPUSCULAR HGB CONC 33.8 g/dL (32.0-36.0); MEAN CORPUSCULAR VOLUME 88 fl (80-97); MONOCYTES % (AUTO) 8.4 % (3-13); PLATELET COUNT 166 10^3/uL (150-450); RED BLOOD COUNT 4.32 10^6/uL (3.72-5.28); RED CELL DISTRIBUTION WIDTH 13.6 % (11.5-14.0); SEGMENTED NEUTROPHILS % (AUTO) 65.4 % (42-78); TOTAL CELLS COUNTED % (AUTO) 100 %
[2019-10-28 13:57] LABS: APPEARANCE,URINE CLOUDY; BILIRUBIN,URINE NEGATIVE (NEGATIVE); COLOR,URINE YELLOW; GLUCOSE, URINE >=500 mg/dL (NEGATIVE); KETONES,URINE NEGATIVE (NEGATIVE); PROTEIN,URINE >=500 mg/dL (NEGATIVE); URINE SPECIFIC GRAVITY 1.022; UROBILINOGEN,URINE NEGATIVE mg/dL (<2.0)
--- NOTE | 2019-10-28 14:19 | ER Document Report ---
ED General - General Chief Complaint: High Blood Sugar Stated Complaint: REPORTS HIGH BLOOD SUGAR Time Seen by Provider: 10/28/19 07:58 Mode of Arrival: Ambulatory Information source: Patient TRAVEL OUTSIDE OF THE U.S. IN LAST 30 DAYS: No - HPI Notes: Patient presents complaining of generalized body aches high blood sugar and some lower abdominal cramping. She states this is been going on for about 1 month. She states that she had Medicaid in [place] but not in [place]. She left [place] 1 month ago approximately. She states she has been without her medicines for approximately 1 month due to not having insurance. She says she was recently diagnosed with a urinary tract infection but cannot afford the antibiotics. She states she has not been taking her insulin but has been taking her metformin. She has had no vomiting or diarrhea. She has had generalized body aches and has been unable to take her pain medication because she ran out. The body aches are moderate. They radiate throughout her body. They are worse with exertion and better with rest. - Related Data Allergies/Adverse Reactions: Penicillins Allergy (Verified 10/28/19 08:10) pregabalin [From Lyrica] Allergy (Verified 10/28/19 08:10) fentanyl Adverse Reaction (Verified 10/28/19 08:10) ketorolac [From Toradol] Adverse Reaction (Verified 10/28/19 08:10) Past Medical History - General Information source: Patient - Social History Smoking Status: Current Every Day Smoker Frequency of alcohol use: None Drug Abuse: None Family History: Reviewed & Not Pertinent Patient has suicidal ideation: No Patient has homicidal ideation: No - Past Medical History Cardiac Medical History: Reports: Hx Hypercholesterolemia, Hx Hypertension Pulmonary Medical History: Reports: Hx COPD Endocrine Medical History: Reports: Hx Diabetes Mellitus Type 2 Musculoskeletal Medical History: Reports Hx Arthritis Psychiatric Medical History: Reports: Hx Depression Past Surgical History: Reports: Hx Section, Hx Hysterectomy, Hx Orthopedic Surgery - R foot bone biopsy Review of Systems - Review of Systems Constitutional: Malaise, Weakness. denies: Chills, Fever Cardiovascular: denies: Chest pain, Palpitations Respiratory: denies: Cough, Short of breath -: Yes All other systems reviewed and negative Physical Exam - Vital signs Vitals: Temp Pulse Resp BP Pulse Ox 98.0 F 88 16 112/68 98 10/28/19 07:45 10/28/19 07:45 10/28/19 07:45 10/28/19 07:45 10/28/19 07:45 Interpretation: Normal - General General appearance: Appears well, Alert - HEENT Head: Normocephalic, Atraumatic Eyes: Normal Pupils: PERRL - Respiratory Respiratory status: No respiratory distress Chest status: Nontender Breath sounds: Normal Chest palpation: Normal - Cardiovascular Rhythm: Regular Heart sounds: Normal auscultation Murmur: No - Abdominal Inspection: Normal Distension: No distension Bowel sounds: Normal Tenderness: Tender - Mild bilateral lower quadrants. No rebound or guarding. Organomegaly: No organomegaly - Back Back: Normal, Nontender - Extremities General upper extremity: Normal inspection, Nontender, Normal color, Normal ROM, Normal temperature General lower extremity: Normal inspection, Nontender, Normal color, Normal ROM, Normal temperature, Normal weight bearing. No: Radha's sign - Neurological Neuro grossly intact: Yes Cognition: Normal Orientation: AAOx4 Baltazar Coma Scale Eye Opening: Spontaneous Baltazar Coma Scale Verbal: Oriented Baltazar Coma Scale Motor: Obeys Commands Baltazar Coma Scale Total: 15 Speech: Normal Motor strength normal: LUE, RUE, LLE, RLE Sensory: Normal - Psychological Associated symptoms: Normal affect, Normal mood - Skin Skin Temperature: Warm Skin Moisture: Dry Skin Color: Normal Course - Re-evaluation Re-evalutation: 10/28/19 14:16 Patient presents with multiple complaints. She does appear to have a urinary tract infection. I will discharge her with a prescription for Bactrim since this is on the $4 list. Patient is also been seen by social work here and an Adult Protective Services consult has been initiated. Patient will be given a prescription for her pain medication as well. I do not feel comfortable giving the patient insulin as she is unsure of the dose and has no way to check her blood sugars at home at this time. I am going to refer her to the [facility] in hopes that she can get in and obtain the material she needs to probably manage her diabetes. She is currently on metformin and her blood sugars are approximately 300 which in the short-term seems reasonable until she can get into the [facility]. - Vital Signs Vital signs: Temp Pulse Resp BP Pulse Ox 98.0 F 88 14 138/64 H 98 10/28/19 07:45 10/28/19 07:45 10/28/19 13:01 10/28/19 13:01 10/28/19 13:01 - Laboratory Result Diagrams: 10/28/19 12:27 10/28/19 10:29 Laboratory results interpreted by me: 10/28/19 10/28/19 10/28/19 10:29 10:29 12:27 WBC 11.0 H Sodium 129.0 L Potassium 5.1 H Chloride 97 L BUN 46 H Est GFR (MDRD) Non-Af 57 L Glucose 357 H Alkaline Phosphatase 151 H NT-Pro-B Natriuret Pep 375 H Total Protein 6.1 L Albumin 3.2 L Urine Protein Urine Glucose (UA) Urine Blood Leukocyte Esterase Rfl 10/28/19 13:00 WBC Sodium Potassium Chloride BUN Est GFR (MDRD) Non-Af Glucose Alkaline Phosphatase NT-Pro-B Natriuret Pep Total Protein Albumin Urine Protein >=500 H Urine Glucose (UA) >=500 H Urine Blood SMALL H Leukocyte Esterase Rfl TRACE H Discharge - Discharge Clinical Impression: Hyperglycemia UTI (urinary tract infection) Qualifiers: Urinary tract infection type: acute cystitis Hematuria presence: without hematuria Qualified Code(s): N30.00 - Acute cystitis without hematuria Condition: Stable Disposition: HOME, SELF-CARE Instructions: Trimethoprim-Sulfa ([facility]), Urinary Tract Infection ([facility]) Additional Instructions: Please call the [facility] as soon as possible to obtain follow-up Prescriptions: Sulfamethoxazole/Trimethoprim [Bactrim Ds Tablet] 1 each PO BID 7 Days #14 tablet Oxycodone HCl/Acetaminophen [Percocet 5-325 mg Tablet] 1 tab PO Q6 3 Days #12 tablet
[2019-10-28 14:39] VITALS: BP 124/58
== END 2019-10-28 14:59 | disposition home or self-care (01) ==
LOC: ER 07:02
DX: E11.65 Type 2 diabetes mellitus with hyperglycemia (principal); T38.3X6A Underdosing of insulin and oral hypoglycemic [antidiabetic] drugs, initial encounter; N30.00 Acute cystitis without hematuria; T36.96XA Underdosing of unspecified systemic antibiotic, initial encounter; Z91.120 Patient's intentional underdosing of medication regimen due to financial hardship; Z91.14 Patient's other noncompliance with medication regimen; Z79.84 Long term (current) use of oral hypoglycemic drugs; R53.81 Other malaise; R53.1 Weakness; I10 Essential (primary) hypertension; F17.200 Nicotine dependence, unspecified, uncomplicated; J44.9 Chronic obstructive pulmonary disease, unspecified; Z88.0 Allergy status to penicillin; Z88.6 Allergy status to analgesic agent
CPT/HCPCS: 36415; 85025; 80053; 81001; 84484; 83880; 71046; J1170; 87086; 87088; 96372; 99284

== ENCOUNTER 2019-11-20 10:13 | Inpatient (IN) | payer SELFPAY ==
[2019-11-20 10:51] LABS: ABSOLUTE BASOPHILS # (AUTO) 0.1 10^3/uL (0.0-0.2); ABSOLUTE LYMPHOCYTES (AUTO) 2.4 10^3/uL (0.5-4.7); ABSOLUTE NEUT (AUTO) 7.1 10^3/uL (1.7-8.2); BASOPHILS % (AUTO) 0.8 % (0-2); EOSINOPHILS % (AUTO) 0.4 % (0-6); HEMATOCRIT 39.4 % (36.0-47.0); HEMOGLOBIN 13.2 g/dL (12.0-15.5); LYMPHOCYTES % (AUTO) 22.5 % (13-45); MEAN CORPUSCULAR HEMOGLOBIN 30.2 pg (27.0-33.4); MEAN CORPUSCULAR HGB CONC 33.5 g/dL (32.0-36.0); MEAN CORPUSCULAR VOLUME 90 fl (80-97); MONOCYTES % (AUTO) 9.1 % (3-13); PLATELET COUNT 207 10^3/uL (150-450); RED BLOOD COUNT 4.37 10^6/uL (3.72-5.28); RED CELL DISTRIBUTION WIDTH 13.6 % (11.5-14.0); SEGMENTED NEUTROPHILS % (AUTO) 67.2 % (42-78); TOTAL CELLS COUNTED % (AUTO) 100 %; WHITE BLOOD COUNT 10.6 10^3/uL (4.0-10.5)
[2019-11-20 11:10] LABS: ALBUMIN 2.7 g/dL (3.5-5.0); ALKALINE PHOSPHATASE 189 U/L (38-126); ANION GAP 9 (5-19); ASPARTATE AMINO TRANSFERASE 16 U/L (14-36); BILIRUBIN,DIRECT 0.3 mg/dL (0.0-0.4); BILIRUBIN,TOTAL 0.3 mg/dL (0.2-1.3); BLOOD UREA NITROGEN 37 mg/dL (7-20); CALCIUM 8.1 mg/dL (8.4-10.2); CARBON DIOXIDE 20 mmol/L (22-30); CHLORIDE 96 mmol/L (98-107); CREATINE KINASE 32 U/L (30-135); POTASSIUM 4.7 mmol/L (3.6-5.0); TOTAL PROTEIN 5.4 g/dL (6.3-8.2)
[2019-11-20] MEDS ORDERED: NORMAL SALINE 500 ML IV ONE (11:31)
[2019-11-20] MEDS ORDERED: OXYCODONE-ACETAMINOPHEN 5-325 MG TABLET PO ONE ×2 (11:31→14:43)
[2019-11-20 11:36] LABS: GLUCOSE 742 mg/dL (75-110)
[2019-11-20 11:46] LABS: CREATINE KINASE MB 1.25 ng/mL (<4.55); TROPONIN I 0.015 ng/mL
[2019-11-20] MEDS ORDERED: NORMAL SALINE 100 ML with INSULIN REGULAR, HUMAN 100 UNIT IV PRN ×2 (12:28)
[2019-11-20] MEDS ORDERED: NORMAL SALINE 1000 ML 1,000 ML IV ONE (12:28)
--- NOTE | 2019-11-20 12:34 | ER Document Report ---
ED General - General Chief Complaint: Chest Pain Stated Complaint: GENERAL WEAKNESS Time Seen by Provider: 11/20/19 11:08 TRAVEL OUTSIDE OF THE U.S. IN LAST 30 DAYS: No - HPI Notes: Chief complaint: High blood sugar and defibrillator fired 59-year-old female transported here via EMS after reportedly experiencing firing of AICD 3 times in the past 24 hours. Patient was also noted to have blood sugar reading "high" per EMS. This is a lady with numerous chronic medical problems who was on Medicaid in the [facility] previously. She moved here about 3 months ago and has not made any arrangements for local care and does not have [place] Medicaid. She was seen here previously approximately 1 month ago with a UTI and elevated blood sugar and was apparently treated by another provider and released at that time. She did not make any follow-up arrangements whatsoever. She is on no m edications now. Patient's primary concern at this point is pain. She says all of her joints hurt and her ribs are sore. She notes that she was previously taking oxycodone for pain and has not had any this medicine in approximately a month. She was previously taking 28 units of Lantus at night but again has not taken any of this in over a month. She denies vomiting. She denies shortness of breath. - Related Data Allergies/Adverse Reactions: Penicillins Allergy (Verified 10/28/19 08:10) pregabalin [From Lyrica] Allergy (Verified 10/28/19 08:10) fentanyl Adverse Reaction (Verified 10/28/19 08:10) ketorolac [From Toradol] Adverse Reaction (Verified 10/28/19 08:10) Past Medical History - General Information source: Patient, [facility] Records - Social History Smoking Status: Never Smoker Family History: Reviewed & Not Pertinent Patient has suicidal ideation: No Patient has homicidal ideation: No - Past Medical History Cardiac Medical History: Reports: Hx Hypercholesterolemia, Hx Hypertension Pulmonary Medical History: Reports: Hx COPD Endocrine Medical History: Reports: Hx Diabetes Mellitus Type 2 Musculoskeletal Medical History: Reports Hx Arthritis Psychiatric Medical History: Reports: Hx Depression Past Surgical History: Reports: Hx Section, Hx Hysterectomy, Hx Orthopedic Surgery - R foot bone biopsy Review of Systems - Review of Systems Notes: Constitutional: Negative for fever. HENT: Negative for sore throat. Eyes: Negative for visual changes. Cardiovascular: As per HPI. Respiratory: Negative for shortness of breath. Gastrointestinal: Negative for abdominal pain, vomiting or diarrhea. Genitourinary: Negative for dysuria. Musculoskeletal: Chronic joint and back pain. Skin: Negative for rash. Neurological: Negative for headaches, weakness or numbness. 10 point ROS negative except as marked above and in HPI. Physical Exam - Vital signs Vitals: Pulse Ox 99 11/20/19 10:16 - Notes Notes: GENERAL: Female patient appearing somewhat older than stated age who is awake and alert. SKIN: Good turgor no rashes. HEAD: Normocephalic atraumatic. EYES: PERRLA. EOMI. Conjunctivae and sclerae clear. EARS: CANALS AND TMS CLEAR. NOSE: CLEAR. MOUTH: Moist mucosa. Edentulous. No stridor or edema. No drooling. NECK: Supple. No masses or thyromegaly. No adenopathy. Carotids 2+ without bruits. No JVD. BACK: Symmetrical without tenderness. CHEST: AICD/pacemaker left anterior chest wall. Moderate diffuse musculoskeletal tenderness over chest wall. Respirations unlabored. Breath sounds clear and symmetrical. HEART: Regular rhythm. No murmur gallop or rub. ABDOMEN: Soft nontender without masses, organomegaly or rebound. Bowel sounds normally active. No bruits. GENITALIA: Deferred. EXTREMITIES: Degenerative changes in her phalangeal joints of both hands. No edema. No calf tenderness. Cap refill less than 1.5 seconds. Dorsalis pedis and posterior tibial pulses 3+ and symmetrical. NEUROLOGICAL: GCS 15. Alert and oriented x3. Fluent speech. Cranial nerves II through XII intact. Sensorimotor and cerebellar normal. Normal tone. PSYCHIATRIC: Appropriate affect. Course - Re-evaluation Re-evalutation: 11/20/19 14:18 This patient has blood sugar about 775. Her CO2 on the venous specimen was 20 with an anion gap of 9 and her venous pH was 7.33. This appears to be hyperosmo lar state related to uncontrolled diabetes. She clearly is not in DKA. She has been given IV hydration with saline and we have also started her on a low-dose insulin infusion. Patient was insistent that her defibrillator to go on all 3 times in last 24 hours but interestingly her troponin is completely normal which in my mind would make this very unlikely. Case was discussed with Dr. Moshe chery om cardiology and he was of a similar opinion. Findings have been presented to the on-call hospitalist Dr. Connors who will admit. - Vital Signs Vital signs: Temp Pulse Resp BP Pulse Ox 16 154/75 H 96 11/20/19 11:01 11/20/19 11:01 11/20/19 11:01 - Laboratory Result Diagrams: 11/20/19 10:27 11/20/19 10:27 Laboratory results interpreted by me: 11/20/19 11/20/19 11/20/19 10:23 10:27 10:27 WBC 10.6 H Sodium 125.1 L Chloride 96 L Carbon Dioxide 20 L BUN 37 H Est GFR (MDRD) Non-Af 59 L Glucose 742 H* POC Glucose > 550 H* Calcium 8.1 L Alkaline Phosphatase 189 H Total Protein 5.4 L Albumin 2.7 L Critical Care Note - Critical Care Note Total time excluding time spent on procedures (mins): 35 - Uncontrolled diabetes with hyperosmolar state requiring IV insulin and IV fluids Discharge - Discharge Clinical Impression: Hyperosmolar non-ketotic state in patient with type 2 diabetes mellitus Condition: Fair Disposition: ADMITTED INPATIENT Admitting Provider: Waylon (Hospitalist) Unit Admitted: Telemetry
--- NOTE | 2019-11-20 12:54 | RADIOLOGY REPORT (SQ) ---
EXAM DESCRIPTION: CHEST SINGLE VIEW COMPLETED DATE/TIME: 11/20/2019 12:41 pm REASON FOR STUDY: CP COMPARISON: 10/28/2019 EXAM PARAMETERS: NUMBER OF VIEWS: One view. TECHNIQUE: Single frontal radiographic view of the chest acquired. RADIATION DOSE: NA LIMITATIONS: None. FINDINGS: LUNGS AND PLEURA: No opacities, masses or pneumothorax. No pleural effusion. MEDIASTINUM AND HILAR STRUCTURES: No masses. Contour normal. HEART AND VASCULAR STRUCTURES: Normal heart size. Coronary vascular stent. BONES: No acute findings. HARDWARE: Left-sided cardiac pacer with leads overlying right atrium right ventricle. Coronary stent . OTHER: No other significant finding. IMPRESSION: No evidence of acute cardiopulmonary process. Evidence of prior coronary stenting. TECHNICAL DOCUMENTATION: JOB ID: [id number] 2010 [employer]- All Rights Reserved Reading location - IP/workstation name: [email or web address]
[2019-11-20] MEDS ORDERED: INSULIN REG, HUMAN 100 UNIT/ML 3 ML VIAL (PYX) IV ONE (13:12)
[2019-11-20 14:00] LABS: VENOUS BLOOD BASE EXCESS -2.4 mmol/L; VENOUS BLOOD HCO3 23.7 mmol/L (20-32); VENOUS BLOOD PCO2 46.1 mmHg (35-63); VENOUS BLOOD PH 7.33 (7.30-7.42)
[2019-11-20 14:25] LABS: APPEARANCE,URINE SLIGHTLY-CLOUDY; BILIRUBIN,URINE NEGATIVE (NEGATIVE); COLOR,URINE YELLOW; GLUCOSE, URINE >=500 mg/dL (NEGATIVE); KETONES,URINE NEGATIVE (NEGATIVE); PROTEIN,URINE >=500 mg/dL (NEGATIVE); URINE SPECIFIC GRAVITY 1.024; UROBILINOGEN,URINE NEGATIVE mg/dL (<2.0)
[2019-11-20 14:38] LABS: URINE AMPHETAMINES SCREEN NEGATIVE; URINE BARBITURATES SCREEN NEGATIVE; URINE BENZODIAZEPINES SCREEN NEGATIVE; URINE COCAINE SCREEN NEGATIVE; URINE MARIJUANA (THC) SCREEN NEGATIVE; URINE METHADONE SCREEN NEGATIVE; URINE PHENCYCLIDINE SCREEN NEGATIVE
[2019-11-20] MEDS ORDERED: NORMAL SALINE 1000 ML 1,000 ML IV PRN (16:03)
--- NOTE | 2019-11-20 16:28 | PDOC H&P ---
History of Present Illness Admission Date/PCP: 11/20/19 15:04 History of Present Illness: LEILANI ALMODOVAR is a 59 year old female who said she came down here from [place] at her daughter's request a few months ago, but she has not gotten any kind of insurance. Apparently she was on [place] Medicaid and came down here without making some kind of arrangement for insurance so she can get her medications. 1 of these medications was insulin. She says she took Lantus at home but she is not had it in a few months now. She said once the supply that she had ran out she is not had any more. She came into the hospital today because she was feeling weak, and as it turns out her blood sugar was substantially elevated into the 700s. She says she has a history of heart failure but she does not know any of the details or what medication she was taking for it. She also has a pacemaker, it is not known if she has a defibrillator, and in either rate she does not know what type she has or what brand. On chest x-ray it looks like it is a pacemaker and not a defibrillator. Past Medical History Cardiac Medical History: Reports: Hyperlipidema, Hypertension Pulmonary Medical History: Reports: Chronic Obstructive Pulmonary Disease (COPD) Endocrine Medical History: Reports: Diabetes Mellitus Type 2 Musculoskeltal Medical History: Reports: Arthritis Psychiatric Medical History: Reports: Depression Past Surgical History Past Surgical History: Reports: Section, Hysterectomy, Orthopedic Surgery - R foot bone biopsy Social History Smoking Status: Never Smoker Family History Family History: Reviewed & Not Pertinent Parental Family History Reviewed: No - She does not know Children Family History Reviewed: No - Nothing known Sibling(s) Family History Reviewed.: No - Nothing known Medication/Allergy Home Medications: Insulin Glargine,Hum.rec.anlog [Lantus (Pyxis) Insulin 100 Unit/1 ml 10 ml] 28 unit SUBCUT QHS 30 Days #1 bottle 09/30/19 Metoprolol Tartrate [Lopressor 100 mg Tablet] 100 mg PO DAILY #30 tab 10/13/19 Allergies/Adverse Reactions: Penicillins Allergy (Verified 10/28/19 08:10) pregabalin [From Lyrica] Allergy (Verified 10/28/19 08:10) fentanyl Adverse Reaction (Verified 10/28/19 08:10) ketorolac [From Toradol] Adverse Reaction (Verified 10/28/19 08:10) Review of Systems All systems: reviewed and no additional remarkable complaints except as stated - All systems were reviewed and were negative except as noted in the HPI Physical Exam Vital Signs: Temp Pulse Resp BP Pulse Ox 16 154/75 H 96 11/20/19 11:01 11/20/19 11:01 11/20/19 11:01 Intake & Output 11/19/19 11/20/19 11/21/19 06:59 06:59 06:59 Intake Total 500 Balance 500 Weight 51.1 kg General appearance: PRESENT: no acute distress, cooperative, disheveled Head exam: PRESENT: atraumatic, normocephalic Eye exam: PRESENT: EOMI, PERRLA. ABSENT: conjunctival injection, nystagmus, scleral icterus Ear exam: PRESENT: normal external ear exam Mouth exam: PRESENT: dry mucosa, neck supple Teeth exam: PRESENT: poor dentation Throat exam: ABSENT: post pharyngeal erythema Neck exam: PRESENT: full ROM. ABSENT: carotid bruit, JVD, lymphadenopathy, meningismus, tenderness, thyromegaly Respiratory exam: PRESENT: clear to auscultation leydi, symmetrical, unlabored. ABSENT: accessory muscle use, chest wall tenderness, crackles, prolonged expiratory phas, retraction, rhonchi, tachypnea, wheezes Cardiovascular exam: PRESENT: RRR, +S1, +S2 Pulses: PRESENT: normal carotid pulses Vascular exam: PRESENT: normal capillary refill GI/Abdominal exam: PRESENT: normal bowel sounds, soft. ABSENT: distended, guarding, rebound, tenderness Extremities exam: ABSENT: clubbing, pedal edema Musculoskeletal exam: PRESENT: normal inspection. ABSENT: deformity Neurological exam: PRESENT: alert, awake, oriented to person, oriented to place, oriented to situation, CN II-XII grossly intact. ABSENT: motor sensory deficit Psychiatric exam: PRESENT: appropriate affect Skin exam: PRESENT: dry, warm Results Laboratory Results: 11/20/19 10:27 11/20/19 13:50 11/20/19 11/20/19 11/20/19 10:27 10:27 13:50 WBC 10.6 H RBC 4.37 Hgb 13.2 Hct 39.4 MCV 90 MCH 30.2 MCHC 33.5 RDW 13.6 Plt Count 207 Seg Neutrophils % 67.2 VBG pH 7.33 VBG pCO2 46.1 VBG HCO3 23.7 VBG Base Excess -2.4 Sodium 125.1 L Potassium 4.7 Chloride 96 L Carbon Dioxide 20 L Anion Gap 9 BUN 37 H Creatinine 0.97 Est GFR ( Amer) > 60 Glucose 742 H* Calcium 8.1 L Total Bilirubin 0.3 AST 16 Alkaline Phosphatase 189 H Total Protein 5.4 L Albumin 2.7 L Urine Color Urine Appearance Urine pH Ur Specific [place] Urine Protein Urine Glucose (UA) Urine Ketones Urine Blood Urine RBC (Auto) 11/20/19 11/20/19 13:50 14:00 WBC RBC Hgb Hct MCV MCH MCHC RDW Plt Count Seg Neutrophils % VBG pH VBG pCO2 VBG HCO3 VBG Base Excess Sodium Potassium Chloride Carbon Dioxide Anion Gap BUN Creatinine Est GFR ( Amer) Glucose 602 H* Calcium Total Bilirubin AST Alkaline Phosphatase Total Protein Albumin Urine Color YELLOW Urine Appearance SLIGHTLY-CLOUDY Urine pH 5.0 Ur Specific [place] 1.024 Urine Protein >=500 H Urine Glucose (UA) >=500 H Urine Ketones NEGATIVE Urine Blood SMALL H Urine RBC (Auto) 8 11/20/19 11/20/19 11/20/19 10:27 10:27 13:50 Creatine Kinase 32 CK-MB (CK-2) 1.25 Troponin I 0.015 0.021 Impressions: Chest X-Ray 11/20/19 12:25 IMPRESSION: No evidence of acute cardiopulmonary process. Evidence of prior coronary stenting. Assessment and Plan - Diagnosis (1) Hyperosmolar non-ketotic state in patient with type 2 diabetes mellitus Is this a current diagnosis for this admission?: Yes Plan: She started on insulin drip in the ER, her blood sugars are trending down. She was not getting any fluids but I started her on some IV fluids. I do not know if she actually has heart failure but will contact her daughter to try to learn some more information about this patient. We do put her on some IV fluids and will monitor her for any signs of decompensation. We will watch her urine output and electrolytes closely. - Time Time Spent with patient: 35 or more minutes - Inpatient Certification Based on my medical assessment, after consideration of the patient's comorbidities, presenting symptoms, or acuity I expect that the services needed warrant INPATIENT care.: Yes I certify that my determination is in accordance with my understanding of Medicare's requirements for reasonable and necessary INPATIENT services [42 CFR 412.3e].: Yes Medical Necessity: Failure to Improve With Outpatient Therapy, Need For IV Fluids, Need For Continuous Telemetry Monitoring, Risk of Complication if Not Cared For in Hospital
--- NOTE | 2019-11-20 18:15 | EKG REPORT ---
SEVERITY:- ABNORMAL ECG - SINUS TACHYCARDIA CONSIDER ANTEROSEPTAL INFARCT NONSPECIFIC T ABNORMALITIES, LATERAL LEADS : Confirmed by: Jay Hong 20-Nov-2019 18:14:08
[2019-11-20] MEDS ORDERED: GLUCAGON,HUMAN RECOMB 1 MG INJ IM PRN (18:35)
[2019-11-20] MEDS ORDERED: DEXTROSE 40% GEL 15 GM TUBE PO PRN ×2 (18:35)
[2019-11-20] MEDS ORDERED: DEXTROSE 50%-WATER 25 GM/50 ML DISP.SYRIN IV PRN ×2 (18:35)
[2019-11-20] MEDS: ACETAMINOPHEN 325 MG TABLET PO PRN (21:21)
[2019-11-20] MEDS: HEPARIN SOD (PORCINE) 5,000 UNIT/ML 1 ML VIAL SUBCUT SCH (21:22)
[2019-11-20] MEDS: INSULIN LISPRO 100 UNIT/ML 3 ML VIAL SUBCUT SCH (21:22)
[2019-11-21] MEDS: ACETAMINOPHEN 325 MG TABLET PO PRN (06:15)
[2019-11-21 06:26] LABS: BLOOD UREA NITROGEN 21 mg/dL (7-20); CARBON DIOXIDE 26 mmol/L (22-30); CHLORIDE 103 mmol/L (98-107); GLUCOSE 212 mg/dL (75-110); POTASSIUM 4.4 mmol/L (3.6-5.0)
[2019-11-21 06:36] LABS: ANION GAP 4 (5-19)
[2019-11-21 06:38] LABS: CREATINE KINASE MB 2.16 ng/mL (<4.55)
[2019-11-21 06:39] LABS: TROPONIN I < 0.012 ng/mL
[2019-11-21] MEDS: HEPARIN SOD (PORCINE) 5,000 UNIT/ML 1 ML VIAL SUBCUT SCH ×2 (07:29→13:09)
[2019-11-21] MEDS: INSULIN LISPRO 100 UNIT/ML 3 ML VIAL SUBCUT SCH ×3 (08:31→17:26)
[2019-11-21] MEDS ORDERED: INSULIN LISPRO 100 UNIT/ML 3 ML VIAL SUBCUT ONE (17:15)
--- NOTE | 2019-11-21 17:54 | PDOC DISCHARGE SUMMARY ---
Impression - Admit/DC Date/PCP Admission Date/Primary Care Provider: 11/20/19 15:04 Discharge Date: 11/21/19 - Discharge Diagnosis (1) Hyperosmolar non-ketotic state in patient with type 2 diabetes mellitus Is this a current diagnosis for this admission?: Yes - Additional Information Resuscitation Status: Full Code Discharge Diet: Diabetic Discharge Activity: Activity As Tolerated [facility] [NO LOCAL MD] - (1-2 weeks) Prescriptions: Insulin NPH Hum/Reg Insulin Hm [Relion Novolin 70-30 Vial] 12 unit SQ BIDACBS #10 ml Home Medications: Insulin NPH Hum/Reg Insulin Hm [Relion Novolin 70-30 Vial] 12 unit SQ BIDACBS #10 ml 11/21/19 History of Present Illiness History of Present Illness: LEILANI ALMODOVAR is a 59 year old female who said she came down here from [place] at her daughter's request a few months ago, but she has not gotten any kind of insurance. Apparently she was on [place] Medicaid and came down here without making some kind of arrangement for insurance so she can get her medications. 1 of these medications was insulin. She says she took Lantus at home but she is not had it in a few months now. She said once the supply that she had ran out she is not had any more. She came into the hospital today because she was feeling weak, and as it turns out her blood sugar was substantially elevated into the 700s. She says she has a history of heart failure but she does not know any of the details or what medication she was taking for it. She also has a pacemaker, it is not known if she has a defibrillator, and in either rate she does not know what type she has or what brand. On chest x-ray it looks like it is a pacemaker and not a defibrillator. Hospital Course Hospital Course: She responded very quickly to insulin and IV fluids. We are able to transition her to a sliding scale and a consistent carbohydrate diet. She does not have insurance right now, so I put her on Novolin 70/30 twice a day until she can follow-up with a primary care provider. We gave her information about the [facility]. Her labs and examination were reassuring and she was discharged in stable condition. She wanted prescriptions for narcotics and benzodiazepines but I declined. Physical Exam Vital Signs: Temp Pulse Resp BP Pulse Ox 98.7 F 102 H 21 H 150/83 H 100 11/21/19 11:46 11/21/19 14:00 11/21/19 11:46 11/21/19 11:46 11/21/19 11:46 Intake & Output 11/20/19 11/21/19 11/22/19 06:59 06:59 06:59 Intake Total 892 Balance 892 Weight 48.4 kg General appearance: PRESENT: no acute distress, cooperative, disheveled Respiratory exam: PRESENT: clear to auscultation leydi, symmetrical, unlabored. ABSENT: accessory muscle use, chest wall tenderness, crackles, prolonged expiratory phas, retraction, rhonchi, tachypnea, wheezes Cardiovascular exam: PRESENT: RRR, +S1, +S2 Pulses: PRESENT: normal carotid pulses Vascular exam: PRESENT: normal capillary refill GI/Abdominal exam: PRESENT: normal bowel sounds, soft. ABSENT: distended, guarding, rebound, tenderness Extremities exam: ABSENT: clubbing, pedal edema Musculoskeletal exam: PRESENT: normal inspection. ABSENT: deformity Neurological exam: PRESENT: alert, awake, oriented to person, oriented to place, oriented to situation Psychiatric exam: PRESENT: appropriate affect, normal mood Skin exam: PRESENT: dry, warm Results Laboratory Results: WBC 10.6 10^3/uL (4.0-10.5) H 11/20/19 10:27 RBC 4.37 10^6/uL (3.72-5.28) 11/20/19 10:27 Hgb 13.2 g/dL (12.0-15.5) 11/20/19 10:27 Hct 39.4 % (36.0-47.0) 11/20/19 10:27 MCV 90 fl (80-97) 11/20/19 10:27 MCH 30.2 pg (27.0-33.4) 11/20/19 10:27 MCHC 33.5 g/dL (32.0-36.0) 11/20/19 10:27 RDW 13.6 % (11.5-14.0) 11/20/19 10:27 Plt Count 207 10^3/uL (150-450) 11/20/19 10:27 Lymph % (Auto) 22.5 % (13-45) 11/20/19 10:27 [place] % (Auto) 9.1 % (3-13) 11/20/19 10:27 Eos % (Auto) 0.4 % (0-6) 11/20/19 10:27 Baso % (Auto) 0.8 % (0-2) 11/20/19 10:27 Absolute Neuts (auto) 7.1 10^3/uL (1.7-8.2) 11/20/19 10:27 Absolute Lymphs (auto) 2.4 10^3/uL (0.5-4.7) 11/20/19 10:27 Absolute Monos (auto) 1.0 10^3/uL (0.1-1.4) 11/20/19 10:27 Absolute Eos (auto) 0.0 10^3/uL (0.0-0.6) 11/20/19 10:27 Absolute Basos (auto) 0.1 10^3/uL (0.0-0.2) 11/20/19 10:27 Seg Neutrophils % 67.2 % (42-78) 11/20/19 10:27 VBG pH 7.33 (7.30-7.42) 11/20/19 13:50 VBG pCO2 46.1 mmHg (35-63) 11/20/19 13:50 VBG HCO3 23.7 mmol/L (20-32) 11/20/19 13:50 VBG Base Excess -2.4 mmol/L 11/20/19 13:50 Sodium 132.8 mmol/L (137-145) L 11/21/19 05:40 Potassium 4.4 mmol/L (3.6-5.0) 11/21/19 05:40 Chloride 103 mmol/L (98-107) 11/21/19 05:40 Carbon Dioxide 26 mmol/L (22-30) 11/21/19 05:40 Anion Gap 4 (5-19) L 11/21/19 05:40 BUN 21 mg/dL (7-20) H 11/21/19 05:40 Creatinine 0.91 mg/dL (0.52-1.25) 11/21/19 05:40 Est GFR ( Amer) > 60 (>60) 11/21/19 05:40 Est GFR (MDRD) Non-Af > 60 (>60) 11/21/19 05:40 Glucose 212 mg/dL (75-110) H 11/21/19 05:40 POC Glucose 459 mg/dL (70-110) H* 11/21/19 16:55 Hemoglobin A1c % > 14.0 % (4.7-6.0) H 11/21/19 05:40 Calcium 8.0 mg/dL (8.4-10.2) L 11/21/19 05:40 Total Bilirubin 0.3 mg/dL (0.2-1.3) 11/20/19 10:27 Direct Bilirubin 0.3 mg/dL (0.0-0.4) 11/20/19 10:27 Neonat Total Bilirubin Not Reportable 11/20/19 10:27 Neonat Direct Bilirubin Not Reportable 11/20/19 10:27 Neonat Indirect Bili Not Reportable 11/20/19 10:27 AST 16 U/L (14-36) 11/20/19 10:27 ALT 12 U/L (<35) 11/20/19 10:27 Alkaline Phosphatase 189 U/L (38-126) H 11/20/19 10:27 Creatine Kinase 30 U/L (30-135) 11/21/19 05:40 CK-MB (CK-2) 2.16 ng/mL (<4.55) 11/21/19 05:40 Troponin I < 0.012 ng/mL 11/21/19 05:40 Total Protein 5.4 g/dL (6.3-8.2) L 11/20/19 10:27 Albumin 2.7 g/dL (3.5-5.0) L 11/20/19 10:27 Urine Color YELLOW 11/20/19 14:00 Urine Appearance SLIGHTLY-CLOUDY 11/20/19 14:00 Urine pH 5.0 (5.0-9.0) 11/20/19 14:00 Ur Specific [place] 1.024 11/20/19 14:00 Urine Protein >=500 mg/dL (NEGATIVE) H 11/20/19 14:00 Urine Glucose (UA) >=500 mg/dL (NEGATIVE) H 11/20/19 14:00 Urine Ketones NEGATIVE mg/dL (NEGATIVE) 11/20/19 14:00 Urine Blood SMALL (NEGATIVE) H 11/20/19 14:00 Urine Nitrite (Reflex) NEGATIVE (NEGATIVE) 11/20/19 14:00 Urine Bilirubin NEGATIVE (NEGATIVE) 11/20/19 14:00 Urine Urobilinogen NEGATIVE mg/dL (<2.0) 11/20/19 14:00 Leukocyte Esterase Rfl TRACE (NEGATIVE) H 11/20/19 14:00 Urine RBC (Auto) 8 /HPF 11/20/19 14:00 Urine Bacteria (Auto) TRACE /HPF 11/20/19 14:00 Urine WBC (Reflex) 54 /HPF 11/20/19 14:00 Squamous Epi Cells Auto <1 /HPF 11/20/19 14:00 Urine Ascorbic Acid NEGATIVE (NEGATIVE) 11/20/19 14:00 Urine Opiates Screen NEGATIVE 11/20/19 14:00 Urine Methadone Screen NEGATIVE 11/20/19 14:00 Ur Barbiturates Screen NEGATIVE 11/20/19 14:00 Ur Phencyclidine Scrn NEGATIVE 11/20/19 14:00 Ur Amphetamines Screen NEGATIVE 11/20/19 14:00 U Benzodiazepines Scrn NEGATIVE 11/20/19 14:00 Urine Cocaine Screen NEGATIVE 11/20/19 14:00 U Marijuana (THC) Screen NEGATIVE 11/20/19 14:00 11/20/19 11/20/19 11/21/19 10:27 13:50 05:40 CK-MB (CK-2) 1.25 2.16 Troponin I 0.015 0.021 < 0.012 Impressions: Chest X-Ray 11/20/19 12:25 IMPRESSION: No evidence of acute cardiopulmonary process. Evidence of prior coronary stenting. Plan Time Spent: Greater than 30 Minutes Stroke Is this a Stroke Patient?: No Acute Heart Failure - Is this a Heart Failure Patient?: No
[2019-11-21 18:17] VITALS: BP 135/68
== END 2019-11-21 18:27 | disposition home or self-care (01) | DRG 639 ==
LOC: ER 10:13 → EH 15:04 → 5 17:20
PROVIDERS: ADMIT Family Medicine; ATTEND Family Medicine
DX: E11.00 Type 2 diabetes mellitus with hyperosmolarity without nonketotic hyperglycemic-hyperosmolar coma (NKHHC) (principal); E78.5 Hyperlipidemia, unspecified; T38.3X6A Underdosing of insulin and oral hypoglycemic [antidiabetic] drugs, initial encounter; J44.9 Chronic obstructive pulmonary disease, unspecified; M19.90 Unspecified osteoarthritis, unspecified site; I11.0 Hypertensive heart disease with heart failure; I50.9 Heart failure, unspecified; F32.9 Major depressive disorder, single episode, unspecified; Z90.710 Acquired absence of both cervix and uterus; Z59.7 Insufficient social insurance and welfare support; Z91.120 Patient's intentional underdosing of medication regimen due to financial hardship; Z95.0 Presence of cardiac pacemaker; Z88.0 Allergy status to penicillin; Z88.8 Allergy status to other drugs, medicaments and biological substances; Z79.4 Long term (current) use of insulin
CPT/HCPCS: 36415; 71045; 80048; 80053; 80307; 81001; 82550; 82553; 82803; 82947; 82962; 83036; 84484; 85025; 87086; 87088; 87186; 93005; 93010; 96360; 96361; 99291; J1644; J1815; J7030; J7040

== ENCOUNTER 2019-11-27 13:16 | Inpatient (IN) | payer MEDICAID ==
[2019-11-27 13:54] LABS: ABSOLUTE BASOPHILS # (AUTO) 0.1 10^3/uL (0.0-0.2); ABSOLUTE LYMPHOCYTES (AUTO) 2.7 10^3/uL (0.5-4.7); ABSOLUTE MONOCYTES (AUTO) 1.1 10^3/uL (0.1-1.4); ABSOLUTE NEUT (AUTO) 12.2 10^3/uL (1.7-8.2); BASOPHILS % (AUTO) 0.6 % (0-2); EOSINOPHILS % (AUTO) 0.3 % (0-6); HEMATOCRIT 41.1 % (36.0-47.0); HEMOGLOBIN 14.2 g/dL (12.0-15.5); LYMPHOCYTES % (AUTO) 16.6 % (13-45); MEAN CORPUSCULAR HEMOGLOBIN 30.5 pg (27.0-33.4); MEAN CORPUSCULAR HGB CONC 34.6 g/dL (32.0-36.0); MEAN CORPUSCULAR VOLUME 88 fl (80-97); MONOCYTES % (AUTO) 6.9 % (3-13); PLATELET COUNT 286 10^3/uL (150-450); RED BLOOD COUNT 4.67 10^6/uL (3.72-5.28); SEGMENTED NEUTROPHILS % (AUTO) 75.6 % (42-78); TOTAL CELLS COUNTED % (AUTO) 100 %; WHITE BLOOD COUNT 16.1 10^3/uL (4.0-10.5)
[2019-11-27 14:11] LABS: ALKALINE PHOSPHATASE 148 U/L (38-126); ANION GAP 8 (5-19); ASPARTATE AMINO TRANSFERASE 20 U/L (14-36); BILIRUBIN,TOTAL 0.4 mg/dL (0.2-1.3); BLOOD UREA NITROGEN 26 mg/dL (7-20); CALCIUM 8.7 mg/dL (8.4-10.2); CARBON DIOXIDE 25 mmol/L (22-30); CHLORIDE 98 mmol/L (98-107); CREATINE KINASE 60 U/L (30-135); TOTAL PROTEIN 5.9 g/dL (6.3-8.2)
[2019-11-27 14:20] LABS: GLUCOSE 462 mg/dL (75-110)
[2019-11-27 14:23] LABS: CREATINE KINASE MB 2.35 ng/mL (<4.55); TROPONIN I 0.022 ng/mL
--- NOTE | 2019-11-27 14:26 | RADIOLOGY REPORT (SQ) ---
EXAM DESCRIPTION: CHEST SINGLE VIEW COMPLETED DATE/TIME: 11/27/2019 2:15 pm REASON FOR STUDY: sob COMPARISON: 11/27/2019 EXAM PARAMETERS: NUMBER OF VIEWS: One view. TECHNIQUE: Single frontal radiographic view of the chest acquired. RADIATION DOSE: NA LIMITATIONS: None. FINDINGS: LUNGS AND PLEURA: No opacities, masses or pneumothorax. No pleural effusion. MEDIASTINUM AND HILAR STRUCTURES: No masses. Contour normal. HEART AND VASCULAR STRUCTURES: No cardiomegaly. Left coronary stents. Left-sided dual lead pacemake r BONES: No acute findings. HARDWARE: Left-sided dual lead pacemaker OTHER: No other significant finding. IMPRESSION: NO ACUTE RADIOGRAPHIC FINDING IN THE CHEST. TECHNICAL DOCUMENTATION: JOB ID: [id number] 2010 [employer]- All Rights Reserved Reading location - IP/workstation name: [email or web address]
--- NOTE | 2019-11-27 15:19 | ER Document Report ---
ED Extremity Problem, Lower - General Chief Complaint: Pedal Edema Stated Complaint: LEG SWELLING Time Seen by Provider: 11/27/19 14:59 Notes: 59-year-old woman presents to the emergency department with complaint of chronic pain, neuropathy and chronic back pain. She is also diabetic, history of CVA presents with complaint of leg swelling and pain. She had been taken oxycodone, however is out of medication. Patient alleges that she has been living with her daughter who has provided little or no support, poor care. Patient was hospital ized 11/20/2019 with hyperosmolar nonketotic hyperglycemia, she was discharged on 11/21/2019. She has a history of CHF and has a pacemaker. TRAVEL OUTSIDE OF THE [place] IN LAST 30 DAYS: No - Related Data Allergies/Adverse Reactions: Penicillins Allergy (Verified 10/28/19 08:10) pregabalin [From Lyrica] Allergy (Verified 10/28/19 08:10) fentanyl Adverse Reaction (Verified 10/28/19 08:10) ketorolac [From Toradol] Adverse Reaction (Verified 10/28/19 08:10) Past Medical History - Social History Smoking Status: Unknown if Ever Smoked Family History: Reviewed & Not Pertinent Patient has suicidal ideation: No Patient has homicidal ideation: No - Past Medical History Cardiac Medical History: Reports: Hx Congestive Heart Failure, Hx Hypercholes terolemia, Hx Hypertension Pulmonary Medical History: Reports: Hx COPD Endocrine Medical History: Reports: Hx Diabetes Mellitus Type 2 Musculoskeletal Medical History: Reports Hx Arthritis Psychiatric Medical History: Denies: Hx Depression Past Surgical History: Reports: Hx Section, Hx Hysterectomy, Hx Orthopedic Surgery - R foot bone biopsy Review of Systems - Review of Systems Notes: Constitutional: Poor hygiene HENT: Negative for sore throat. Eyes: Negative for visual changes. Cardiovascular: + Edema, negative for chest pain. Respiratory: Negative for shortness of breath. Gastrointestinal: Negative for abdominal pain, vomiting or diarrhea. Genitourinary: Negative for dysuria. Musculoskeletal: Negative for back pain. Skin: + Diffuse perineal and buttock rash Neurological: Negative for headaches, weakness or numbness. 10 point ROS negative except as marked above and in HPI. Physical Exam - Vital signs Vitals: Pulse Ox 96 11/27/19 13:47 - Notes Notes: PHYSICAL EXAMINATION: Physical Exam: General: Alert 59-year-old woman with very poor hygiene HEENT: NC/AT, pupils equal round and reactive to light, MM moist,nares clear, oropharynx clear, airway patent Neck: supple, no adenopathy, no masses. Good range of motion Lungs: clear, no wheezing, no rales no rhonchi CVS: Regular rate and rhythm no murmur gallop or rub Abdomen: Soft, active, nontender, no masses, no hepatosplenomegaly Ext: 1+ edema lower extremities bilaterally, + bilateral leg pain, neuropathy, clubbing or cyanosis. Neuro: Alert and responsive, moving all 4 extremities on command, cranial nerves intact, no focal findings Skin: Diffuse erythematous rash with satellite lesions noted in the perineum and buttock region, PSYCH: Normal mood, normal affect. Course - Re-evaluation Re-evalutation: 11/27/19 17:26 Poorly Chronically ill 59-year-old woman apparently not receiving medications and not receiving assistance with care according to the patient. emergency services professional has been contacted and case is now open. Glucose is elevated sodium is low and the patient has complained of chronic pain related to her neuropathy. She states that she is allergic to Lyrica and Neurontin and that she had been managed with opiates by her primary physician. She is given IV fluids and regular Humulin in the emergency department, Percocet 1 tablet was given for pain and Toradol 30 mg IV. Discussed the patient with the hospitalist Dr. Pearl and the patient will be brought into the hospital for further evaluation and management. - Vital Signs Vital signs: Temp Pulse Resp BP Pulse Ox 96 11/27/19 13:47 - Laboratory Result Diagrams: 11/27/19 13:34 11/27/19 13:34 Laboratory results interpreted by me: 11/27/19 11/27/19 11/27/19 13:34 13:34 13:34 WBC 16.1 H Absolute Neuts (auto) 12.2 H Sodium 131.1 L BUN 26 H Est GFR (MDRD) Non-Af 53 L Glucose 462 H* POC Glucose Alkaline Phosphatase 148 H NT-Pro-B Natriuret Pep 794 H Total Protein 5.9 L Albumin 3.0 L 11/27/19 17:23 WBC Absolute Neuts (auto) Sodium BUN Est GFR (MDRD) Non-Af Glucose POC Glucose 253 H Alkaline Phosphatase NT-Pro-B Natriuret Pep Total Protein Albumin - Diagnostic Test Radiology reviewed: Image reviewed, Reports reviewed - Chest x-ray: No acute findings - EKG Interpretation by Me Rate: Tachycardia - Sinus tachycardia, rate 108, nonspecific T wave abnormality no ST elevation elevation. Discharge - Discharge Clinical Impression: Uncontrolled hypertension, Candidiasis of perineum, Poor social situation CHF (congestive heart failure) Qualifiers: Heart failure type: systolic Heart failure chronicity: chronic Qualified Code(s): I50.22 - Chronic systolic (congestive) heart failure Condition: Good Disposition: ADMITTED INPATIENT Admitting Provider: Ryanne (Hospitalist) Unit Admitted: Medical Floor
[2019-11-27] MEDS ORDERED: INSULIN REG, HUMAN 100 UNIT/ML 3 ML VIAL (PYX) IV ONE (15:24)
[2019-11-27] MEDS ORDERED: NORMAL SALINE 500 ML IV ONE (15:24)
[2019-11-27] MEDS ORDERED: OXYCODONE-ACETAMINOPHEN 5-325 MG TABLET PO ONE (15:26)
[2019-11-27] MEDS ORDERED: FUROSEMIDE INJ/PF 20 MG/2 ML SDV IV ONE (15:28)
[2019-11-27] MEDS ORDERED: ONDANSETRON HCL INJ/PF 4 MG/2 ML SDV IV PRN (17:47)
[2019-11-27] MEDS ORDERED: ONDANSETRON 4 MG TAB.RAPDIS PO PRN (17:47)
[2019-11-27] MEDS ORDERED: MAG HYDROX/AL HYDROX/SIMETH SUSP 30 ML UDCUP PO PRN (17:47)
[2019-11-27] MEDS ORDERED: DEXTROSE 40% GEL 15 GM TUBE PO PRN ×2 (18:03)
[2019-11-27] MEDS ORDERED: GLUCAGON,HUMAN RECOMB 1 MG INJ IM PRN (18:03)
[2019-11-27] MEDS ORDERED: DEXTROSE 50%-WATER 25 GM/50 ML DISP.SYRIN IV PRN ×2 (18:03)
[2019-11-27 18:06] LABS: APPEARANCE,URINE SLIGHTLY-CLOUDY; BILIRUBIN,URINE NEGATIVE (NEGATIVE); COLOR,URINE YELLOW; GLUCOSE, URINE >=500 mg/dL (NEGATIVE); KETONES,URINE NEGATIVE (NEGATIVE); LEUKOCYTE ESTERASE,URINE TRACE (NEGATIVE); NITRITE,URINE NEGATIVE (NEGATIVE); PROTEIN,URINE >=500 mg/dL (NEGATIVE); UROBILINOGEN,URINE NEGATIVE mg/dL (<2.0)
[2019-11-27 18:17] LABS: PROTHROMBIN TIME 12.1 SEC (11.4-15.4)
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
--- NOTE | 2019-11-27 18:26 | EKG REPORT ---
SEVERITY:- ABNORMAL ECG - SINUS TACHYCARDIA CONSIDER ANTEROSEPTAL INFARCT NONSPECIFIC T ABNORMALITIES, LATERAL LEADS : Confirmed by: Rosalba Dewey MD 27-Nov-2019 18:25:20
[2019-11-27 20:07] LABS: ANION GAP 7 (5-19); BLOOD UREA NITROGEN 27 mg/dL (7-20); CALCIUM 7.8 mg/dL (8.4-10.2); CARBON DIOXIDE 26 mmol/L (22-30); CHLORIDE 99 mmol/L (98-107); GLUCOSE 334 mg/dL (75-110); POTASSIUM 4.1 mmol/L (3.6-5.0)
[2019-11-27] MEDS ORDERED: INSULIN GLARGINE,HUM.REC.ANLOG 1,000 UNIT/10 ML VIAL (PYX) SUBCUT ONE (21:08)
[2019-11-27] MEDS: CLONAZEPAM 1 MG TABLET PO SCH (21:10)
[2019-11-27] MEDS: OXYCODONE HCL SR 10 MG TABLET PO SCH (21:11)
[2019-11-27] MEDS: INSULIN GLARGINE,HUM.REC.ANLOG 1,000 UNIT/10 ML VIAL SUBCUT SCH (21:12)
[2019-11-27] MEDS: INSULIN LISPRO 100 UNIT/ML 3 ML VIAL SUBCUT SCH (21:12)
[2019-11-27] MEDS: NORMAL SALINE 1000 ML 1,000 ML IV PRN (21:17)
[2019-11-28] MEDS ORDERED: FLUCONAZOLE 100 MG TABLET PO ONE (01:30)
[2019-11-28] MEDS: DIPHENHYDRAMINE HCL 25 MG CAPSULE PO PRN ×2 (01:39→20:02)
[2019-11-28] MEDS: PANTOPRAZOLE SODIUM 20 MG TABLET.DR PO SCH (05:16)
[2019-11-28] MEDS: CLONAZEPAM 1 MG TABLET PO SCH ×3 (05:16→22:06)
[2019-11-28] MEDS: NORMAL SALINE 1000 ML 1,000 ML IV PRN ×2 (05:17→16:03)
[2019-11-28 06:49] LABS: ABSOLUTE BASOPHILS # (AUTO) 0.1 10^3/uL (0.0-0.2); ABSOLUTE EOSINOPHILS # (AUTO) 0.3 10^3/uL (0.0-0.6); ABSOLUTE LYMPHOCYTES (AUTO) 6.2 10^3/uL (0.5-4.7); ABSOLUTE MONOCYTES (AUTO) 1.2 10^3/uL (0.1-1.4); ABSOLUTE NEUT (AUTO) 7.9 10^3/uL (1.7-8.2); BASOPHILS % (AUTO) 0.5 % (0-2); EOSINOPHILS % (AUTO) 1.6 % (0-6); HEMATOCRIT 35.8 % (36.0-47.0); LYMPHOCYTES % (AUTO) 39.6 % (13-45); MEAN CORPUSCULAR HEMOGLOBIN 29.8 pg (27.0-33.4); MEAN CORPUSCULAR HGB CONC 33.6 g/dL (32.0-36.0); MEAN CORPUSCULAR VOLUME 89 fl (80-97); MONOCYTES % (AUTO) 7.8 % (3-13); PLATELET COUNT 236 10^3/uL (150-450); RED BLOOD COUNT 4.03 10^6/uL (3.72-5.28); RED CELL DISTRIBUTION WIDTH 13.7 % (11.5-14.0); SEGMENTED NEUTROPHILS % (AUTO) 50.5 % (42-78); TOTAL CELLS COUNTED % (AUTO) 100 %; WHITE BLOOD COUNT 15.8 10^3/uL (4.0-10.5)
[2019-11-28] MEDS: INSULIN LISPRO 100 UNIT/ML 3 ML VIAL SUBCUT SCH ×4 (08:24→22:06)
[2019-11-28] MEDS: DOCUSATE SODIUM 100 MG CAPSULE PO SCH (09:16)
[2019-11-28] MEDS: METOPROLOL TARTRATE 100 MG TABLET PO SCH (09:17)
[2019-11-28] MEDS: NYSTATIN CREAM 15 GM TP SCH ×2 (09:17→17:06)
[2019-11-28] MEDS: OXYCODONE HCL SR 10 MG TABLET PO SCH ×2 (09:17→22:05)
[2019-11-28] MEDS: ENOXAPARIN SODIUM INJ 40 MG/0.4 ML DISP.SYRIN SUBCUT SCH (09:17)
[2019-11-28] MEDS ORDERED: METHADONE HCL 10 MG TABLET PO SCH (10:00)
--- NOTE | 2019-11-28 11:03 | PDOC PROGRESS REPORT ---
Subjective Progress Note for:: 11/28/19 Reason For Visit: PERIPHERAL EDEMA, CHRONIC PAIN, DIABETES, STATUS 11/28/2019 Patient admitted for social admission, poor hygiene, chronic pain, diabetes, peripheral edema, patient noncompliance Physical Exam Vital Signs: Temp Pulse Resp BP Pulse Ox 98.4 F 79 20 108/49 L 100 11/28/19 08:29 11/28/19 08:29 11/28/19 08:29 11/28/19 08:29 11/28/19 08:29 Intake & Output 11/27/19 11/28/19 11/29/19 06:59 06:59 06:59 Intake Total 2019 Output Total 775 Balance 1245 Weight 59.3 kg General appearance: PRESENT: no acute distress, other - Patient looks much better this morning Respiratory exam: PRESENT: clear to auscultation leydi. ABSENT: rales, rhonchi, wheezes Cardiovascular exam: PRESENT: RRR. ABSENT: diastolic murmur, rubs, systolic murmur Gentrourinary exam: PRESENT: erythema Neurological exam: PRESENT: alert, awake, oriented to person, oriented to place, oriented to time, oriented to situation, CN II-XII grossly intact. ABSENT: david r sensory deficit Psychiatric exam: PRESENT: appropriate affect, normal mood. ABSENT: homicidal ideation, suicidal ideation Results Laboratory Results: 11/28/19 05:59 11/27/19 19:30 11/27/19 11/27/19 11/27/19 13:34 13:34 13:34 WBC 16.1 H RBC 4.67 Hgb 14.2 Hct 41.1 MCV 88 MCH 30.5 MCHC 34.6 RDW 14.0 Plt Count 286 Seg Neutrophils % 75.6 Sodium 131.1 L Potassium 5.0 Chloride 98 Carbon Dioxide 25 Anion Gap 8 BUN 26 H Creatinine 1.06 Est GFR ( Amer) > 60 Glucose 462 H* Calcium 8.7 Magnesium Total Bilirubin 0.4 AST 20 Alkaline Phosphatase 148 H Total Protein 5.9 L Albumin 3.0 L TSH 1.75 Urine Color Urine Appearance Urine pH Ur Specific [place] Urine Protein Urine Glucose (UA) Urine Ketones Urine Blood Urine Nitrite Ur Leukocyte Esterase Urine WBC (Auto) Urine RBC (Auto) 11/27/19 11/27/19 11/28/19 17:15 19:30 05:59 WBC 15.8 H RBC 4.03 Hgb 12.0 D Hct 35.8 L MCV 89 MCH 29.8 MCHC 33.6 RDW 13.7 Plt Count 236 Seg Neutrophils % 50.5 Sodium 131.5 L Potassium 4.1 Chloride 99 Carbon Dioxide 26 Anion Gap 7 BUN 27 H Creatinine 1.03 Est GFR ( Amer) > 60 Glucose 334 H Calcium 7.8 L Magnesium Total Bilirubin AST Alkaline Phosphatase Total Protein Albumin TSH Urine Color YELLOW Urine Appearance SLIGHTLY-CLOUDY Urine pH 5.0 Ur Specific [place] 1.010 Urine Protein >=500 H Urine Glucose (UA) >=500 H Urine Ketones NEGATIVE Urine Blood SMALL H Urine Nitrite NEGATIVE Ur Leukocyte Esterase TRACE H Urine WBC (Auto) 88 Urine RBC (Auto) 0 11/28/19 05:59 WBC RBC Hgb Hct MCV MCH MCHC RDW Plt Count Seg Neutrophils % Sodium Potassium Chloride Carbon Dioxide Anion Gap BUN Creatinine Est GFR ( Amer) Glucose Calcium Magnesium 1.5 L Total Bilirubin AST Alkaline Phosphatase Total Protein Albumin TSH Urine Color Urine Appearance Urine pH Ur Specific [place] Urine Protein Urine Glucose (UA) Urine Ketones Urine Blood Urine Nitrite Ur Leukocyte Esterase Urine WBC (Auto) Urine RBC (Auto) 11/27/19 11/27/19 11/27/19 13:34 13:34 19:30 Creatine Kinase 60 CK-MB (CK-2) 2.35 Troponin I 0.022 NT-Pro-B Natriuret Pep 794 H 478 H Impressions: Chest X-Ray 11/27/19 13:25 IMPRESSION: NO ACUTE RADIOGRAPHIC FINDING IN THE CHEST. Assessment and Plan - Diagnosis (1) Diabetes Is this a current diagnosis for this admission?: Yes (2) Diabetic neuropathy Is this a current diagnosis for this admission?: Yes (3) Tobacco abuse Is this a current diagnosis for this admission?: Yes (4) Coronary arteriosclerosis Is this a current diagnosis for this admission?: Yes (5) Candidiasis of perineum Is this a current diagnosis for this admission?: Yes (6) Poor social situation Is this a current diagnosis for this admission?: Yes (7) Uncontrolled hypertension Is this a current diagnosis for this admission?: Yes - Plan Summary Summary: Patient will be admitted for insulin therapy to control her hyperglycemia. She will get involved with discharge planning for her social problems with her family. Patient's pain will be managed as best possible. 11/28/2019 Patient getting nystatin cream on her feet as well as her perineum Patient remains afebrile with other vital signs stable as well Unfortunately patient was started back on her methadone and OxyContin last night. Told patient we would not prescribe this at the time of her discharge, and it would be my preference just to use PRN Percocet. I also told her that if she went to a [facility] facility I doubt strongly that she would be prescribed it as well. Patient is well aware of withdrawal symptoms as she has been through this before. Patient states she still wants to be on these 2 meds while in the hospital. White blood cell count is about the same 15.8 Hemoglobin A1c is greater than 14 Sugars are running in the mid to upper 300s Renal functions appear grossly normal Preliminary urine cultures growing out gram-negative rods Patient will be placed on Bactrim - Time Time Spent with patient: 25-34 minutes
[2019-11-28] MEDS: HUM INSULIN NPH/REG INSULIN HM 100 UNIT/1 ML 3 ML SUBCUT SCH ×2 (12:03→17:05)
[2019-11-28] MEDS: METHADONE HCL 10 MG TABLET PO SCH ×2 (13:13→22:05)
[2019-11-28] MEDS: SULFAMETHOXAZOLE/TRIMETHOPRIM 800-160 MG TABLET PO SCH ×2 (13:13→22:06)
[2019-11-28] MEDS: INSULIN GLARGINE,HUM.REC.ANLOG 1,000 UNIT/10 ML VIAL SUBCUT SCH (22:06)
[2019-11-29] MEDS: INSULIN GLARGINE,HUM.REC.ANLOG 1,000 UNIT/10 ML VIAL SUBCUT SCH (02:31)
[2019-11-29 06:18] LABS: ABSOLUTE BASOPHILS # (AUTO) 0.1 10^3/uL (0.0-0.2); ABSOLUTE EOSINOPHILS # (AUTO) 0.2 10^3/uL (0.0-0.6); ABSOLUTE LYMPHOCYTES (AUTO) 3.8 10^3/uL (0.5-4.7); ABSOLUTE MONOCYTES (AUTO) 1.1 10^3/uL (0.1-1.4); ABSOLUTE NEUT (AUTO) 6.9 10^3/uL (1.7-8.2); BASOPHILS % (AUTO) 0.6 % (0-2); EOSINOPHILS % (AUTO) 1.5 % (0-6); HEMATOCRIT 31.6 % (36.0-47.0); HEMOGLOBIN 10.7 g/dL (12.0-15.5); LYMPHOCYTES % (AUTO) 31.5 % (13-45); MEAN CORPUSCULAR HEMOGLOBIN 30.2 pg (27.0-33.4); MEAN CORPUSCULAR VOLUME 89 fl (80-97); MONOCYTES % (AUTO) 8.9 % (3-13); PLATELET COUNT 219 10^3/uL (150-450); RED BLOOD COUNT 3.55 10^6/uL (3.72-5.28); SEGMENTED NEUTROPHILS % (AUTO) 57.5 % (42-78); TOTAL CELLS COUNTED % (AUTO) 100 %; WHITE BLOOD COUNT 12.1 10^3/uL (4.0-10.5)
[2019-11-29] MEDS: PANTOPRAZOLE SODIUM 20 MG TABLET.DR PO SCH (06:20)
[2019-11-29] MEDS: METHADONE HCL 10 MG TABLET PO SCH ×3 (06:20→22:30)
[2019-11-29] MEDS: CLONAZEPAM 1 MG TABLET PO SCH ×2 (06:20→14:51)
[2019-11-29] MEDS: INSULIN LISPRO 100 UNIT/ML 3 ML VIAL SUBCUT SCH ×4 (07:49→22:31)
[2019-11-29] MEDS: OXYCODONE HCL SR 10 MG TABLET PO SCH (09:53)
[2019-11-29] MEDS: METOPROLOL TARTRATE 100 MG TABLET PO SCH (09:53)
[2019-11-29] MEDS: DOCUSATE SODIUM 100 MG CAPSULE PO SCH (09:53)
[2019-11-29] MEDS: SULFAMETHOXAZOLE/TRIMETHOPRIM 800-160 MG TABLET PO SCH (09:53)
[2019-11-29] MEDS: NYSTATIN CREAM 15 GM TP SCH ×2 (09:53→17:05)
[2019-11-29] MEDS: ENOXAPARIN SODIUM INJ 40 MG/0.4 ML DISP.SYRIN SUBCUT SCH (09:58)
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
[2019-11-29] MEDS: HUM INSULIN NPH/REG INSULIN HM 100 UNIT/1 ML 3 ML SUBCUT SCH (12:59)
[2019-11-29] MEDS ORDERED: HUM INSULIN NPH/REG INSULIN HM 100 UNIT/1 ML 3 ML SUBCUT SCH (16:00)
[2019-11-29] MEDS ORDERED: CLONAZEPAM 1 MG TABLET PO PRN (17:14)
--- NOTE | 2019-11-29 17:23 | CDI QUERY ---
CDI Query CDI Review: Dear Provider: To better reflect your patients severity of illness, morbidity, and resource utilization Please specify and document in the Progress Notes and Discharge Summary if you are monitoring / treating / evaluating any of the following conditions: Query Clinical indicators Klebsiella Pneumoniae UTI Gram-negative rods UTI Acute UTI Acute on chronic UTI Acute cystitis Other Unable to determine Per Progress Notes: Preliminary urine cultures growing out gram-negative rods Patient will be placed on Bactrim Labs: WBC 16.1 Urine Culture + Klebsiella Pneumoniae The terms probable, suspected, likely, possible or still to be ruled out may be used if you are unable to determine the exact nature of a condition. Thank you for your consideration, Clinical Documentation Physician Advisors MARITO Valdivia RN, BSN RN Office [phone] Office [phone]
[2019-11-30] MEDS: OXYCODONE HCL SR 10 MG TABLET PO SCH ×2 (02:32→10:22)
[2019-11-30] MEDS: SULFAMETHOXAZOLE/TRIMETHOPRIM 800-160 MG TABLET PO SCH ×3 (02:32→22:56)
[2019-11-30] MEDS: PANTOPRAZOLE SODIUM 20 MG TABLET.DR PO SCH (06:26)
[2019-11-30] MEDS: METHADONE HCL 10 MG TABLET PO SCH (06:27)
[2019-11-30 06:58] LABS: ABSOLUTE BASOPHILS # (AUTO) 0.1 10^3/uL (0.0-0.2); ABSOLUTE LYMPHOCYTES (AUTO) 1.4 10^3/uL (0.5-4.7); ABSOLUTE MONOCYTES (AUTO) 0.9 10^3/uL (0.1-1.4); ABSOLUTE NEUT (AUTO) 11.9 10^3/uL (1.7-8.2); BASOPHILS % (AUTO) 0.9 % (0-2); EOSINOPHILS % (AUTO) 0.3 % (0-6); HEMATOCRIT 33.9 % (36.0-47.0); HEMOGLOBIN 11.2 g/dL (12.0-15.5); LYMPHOCYTES % (AUTO) 9.5 % (13-45); MEAN CORPUSCULAR HEMOGLOBIN 29.6 pg (27.0-33.4); MEAN CORPUSCULAR VOLUME 90 fl (80-97); PLATELET COUNT 224 10^3/uL (150-450); RED BLOOD COUNT 3.78 10^6/uL (3.72-5.28); RED CELL DISTRIBUTION WIDTH 13.7 % (11.5-14.0); SEGMENTED NEUTROPHILS % (AUTO) 83.3 % (42-78); TOTAL CELLS COUNTED % (AUTO) 100 %; WHITE BLOOD COUNT 14.3 10^3/uL (4.0-10.5)
[2019-11-30] MEDS ORDERED: DEXTROSE 40% GEL 15 GM TUBE PO PRN ×2 (08:46)
[2019-11-30] MEDS ORDERED: GLUCAGON,HUMAN RECOMB 1 MG INJ IM PRN (08:46)
[2019-11-30] MEDS ORDERED: DEXTROSE 50%-WATER 25 GM/50 ML DISP.SYRIN IV PRN ×2 (08:46)
[2019-11-30] MEDS: INSULIN LISPRO 100 UNIT/ML 3 ML VIAL SUBCUT SCH ×4 (09:07→22:55)
[2019-11-30] MEDS: ENOXAPARIN SODIUM INJ 40 MG/0.4 ML DISP.SYRIN SUBCUT SCH (10:05)
[2019-11-30] MEDS: HUM INSULIN NPH/REG INSULIN HM 100 UNIT/1 ML 3 ML SUBCUT SCH ×2 (10:06→16:57)
[2019-11-30] MEDS: METOPROLOL TARTRATE 100 MG TABLET PO SCH (10:07)
[2019-11-30] MEDS: DOCUSATE SODIUM 100 MG CAPSULE PO SCH (10:07)
[2019-11-30] MEDS ORDERED: VANCOMYCIN HCL 0 MG in DEXTROSE 5%-WATER 250 ML IV NR (10:15)
--- NOTE | 2019-11-30 11:19 | RADIOLOGY REPORT (SQ) ---
EXAM DESCRIPTION: CHEST SINGLE VIEW COMPLETED DATE/TIME: 11/30/2019 10:15 am REASON FOR STUDY: aspiration pneumonia COMPARISON: 11/27/2019 EXAM PARAMETERS: NUMBER OF VIEWS: One view. TECHNIQUE: Single frontal radiographic view of the chest acquired. RADIATION DOSE: NA LIMITATIONS: None. FINDINGS: LUNGS AND PLEURA: Subtle increased density right lower lobe. Left lung is clear. MEDIASTINUM AND HILAR STRUCTURES: No masses. Contour normal. HEART AND VASCULAR STRUCTURES: Heart normal in size. Normal vasculature. BONES: No acute findings. HARDWARE: Stable position of pacemaker. OTHER: No other significant finding. IMPRESSION: Atelectasis or early pneumonia right lower lobe. TECHNICAL DOCUMENTATION: JOB ID: [id number] 2010 [employer]- All Rights Reserved Reading location - IP/workstation name: [email or web address]
[2019-11-30] MEDS: NYSTATIN CREAM 15 GM TP SCH ×2 (11:51→22:54)
[2019-11-30] MEDS ORDERED: VANCOMYCIN HCL 1,250 MG in DEXTROSE 5%-WATER 250 ML IV SCH (12:00)
[2019-11-30] MEDS: IPRATROPIUM/ALBUTEROL 0.5-2.5 MG/3 ML AMPUL NEB PRN ×2 (13:02→16:27)
[2019-11-30] MEDS: MEROPENEM 1 GM in NORMAL SALINE 50 ML IV SCH ×2 (14:31→23:02)
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
[2019-11-30] MEDS: ACETAMINOPHEN 325 MG TABLET PO PRN (16:08)
[2019-11-30] MEDS ORDERED: NALOXONE HCL INJ/PF 0.4 MG/1 ML SDV ONE (16:38)
[2019-11-30] MEDS ORDERED: NALOXONE HCL INJ/PF 0.4 MG/1 ML SDV IV ONE (17:00)
--- NOTE | 2019-11-30 18:52 | Progress Note ---
Provider Note Provider Note: This afternoon at approximately 1600 hrs. is up on the fourth floor and I was asked to see the patient for [address] MsHimanshu Blackmon. Her oxygen saturation was down to 81% on 4 L nasal cannula. Again she seemed lethargic was not taking deep inspiration or expirations. I ordered Narcan and within about 15 seconds she started waking up and becoming more alert taking normal respirations and her saturations went up into the upper 80s low 90s. Reportedly patient has had no narcotics today, this I DC'd them this morning af ter rounds. According to the MAR he also has not had her Klonopin and it is ordered as needed. Fingerstick blood sugar at the time was 144. Think since she woke up and improve drastically after the Narcan one has to assume that the OxyContin and methadone she was getting yesterday and last night is still on board. Her level of consciousness may very well have been related to her hypoxia however I think her hypoxia is related to her narcotize T[employer]IR[employer]ER. Even the nurses aide stated that that was the most awake alert she had seen her in the last 12 hours. Patient obviously now has a hospital-acquired aspiration pneumonia secondary to lethargy secondary to her narcotics. Even though the patient states she was taking OxyContin and methadone prior to admission, according to her pharmacy reconcile sheet she was on no home medications when she came into the hospital. I do not think she will go into withdrawals by stopping this medicine at this time
[2019-11-30] MEDS ORDERED: MAGNESIUM HYDROXIDE SUSP 30 ML UDCUP PO PRN (21:02)
[2019-11-30] MEDS: INSULIN GLARGINE,HUM.REC.ANLOG 1,000 UNIT/10 ML VIAL SUBCUT SCH (22:56)
[2019-12-01] MEDS: DIPHENHYDRAMINE HCL 25 MG CAPSULE PO PRN (02:38)
[2019-12-01] MEDS: MEROPENEM 1 GM in NORMAL SALINE 50 ML IV SCH (05:08)
[2019-12-01] MEDS: PANTOPRAZOLE SODIUM 20 MG TABLET.DR PO SCH (05:08)
[2019-12-01] MEDS: HUM INSULIN NPH/REG INSULIN HM 100 UNIT/1 ML 3 ML SUBCUT SCH ×2 (10:47→18:15)
[2019-12-01] MEDS: INSULIN LISPRO 100 UNIT/ML 3 ML VIAL SUBCUT SCH ×4 (10:47→22:59)
[2019-12-01] MEDS: DOCUSATE SODIUM 100 MG CAPSULE PO SCH (12:19)
[2019-12-01] MEDS: METOPROLOL TARTRATE 100 MG TABLET PO SCH (12:19)
[2019-12-01] MEDS: ENOXAPARIN SODIUM INJ 40 MG/0.4 ML DISP.SYRIN SUBCUT SCH (12:20)
[2019-12-01] MEDS: NYSTATIN CREAM 15 GM TP SCH ×2 (12:20→20:13)
[2019-12-01] MEDS: ACETAMINOPHEN 325 MG TABLET PO PRN (13:06)
[2019-12-01] MEDS: CLINDAMYCIN HCL 150 MG CAPSULE PO SCH ×2 (13:06→23:07)
[2019-12-01 17:37] LABS: ANION GAP 5 (5-19); BLOOD UREA NITROGEN 34 mg/dL (7-20); CALCIUM 7.9 mg/dL (8.4-10.2); CARBON DIOXIDE 24 mmol/L (22-30); CHLORIDE 104 mmol/L (98-107); GLUCOSE 231 mg/dL (75-110); POTASSIUM 4.5 mmol/L (3.6-5.0)
[2019-12-01] MEDS ORDERED: NORMAL SALINE 1000 ML 1,000 ML IV PRN (17:55)
[2019-12-01] MEDS ORDERED: DEXTROSE 50%-WATER 25 GM/50 ML DISP.SYRIN IV PRN ×2 (18:22)
[2019-12-01] MEDS ORDERED: DEXTROSE 40% GEL 15 GM TUBE PO PRN ×2 (18:22)
[2019-12-01] MEDS ORDERED: GLUCAGON,HUMAN RECOMB 1 MG INJ IM PRN (18:22)
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
[2019-12-01] MEDS: NICOTINE 14 MG/24 HR PATCH.TD24 TD SCH (19:00)
[2019-12-01] MEDS ORDERED: BUSPIRONE HCL 10 MG TABLET PO SCH (22:00)
[2019-12-01] MEDS ORDERED: ASPIRIN 81 MG TABLET, CHEWABLE PO SCH (22:00)
[2019-12-01] MEDS: CIPROFLOXACIN HCL 500 MG TABLET PO SCH (23:07)
[2019-12-02] MEDS: CLINDAMYCIN HCL 150 MG CAPSULE PO SCH (06:17)
[2019-12-02] MEDS: PANTOPRAZOLE SODIUM 20 MG TABLET.DR PO SCH (06:17)
[2019-12-02] MEDS ORDERED: HUM INSULIN NPH/REG INSULIN HM 100 UNIT/1 ML 3 ML SUBCUT SCH (08:00)
[2019-12-02] MEDS: INSULIN LISPRO 100 UNIT/ML 3 ML VIAL SUBCUT SCH ×2 (08:39→14:43)
[2019-12-02] MEDS: BUSPIRONE HCL 10 MG TABLET PO SCH ×2 (08:39→08:43)
[2019-12-02 13:55] VITALS: BP 95/41
[2019-12-02] MEDS: METOPROLOL TARTRATE 100 MG TABLET PO SCH (14:41)
[2019-12-02] MEDS: ENOXAPARIN SODIUM INJ 40 MG/0.4 ML DISP.SYRIN SUBCUT SCH (14:41)
[2019-12-02] MEDS: CIPROFLOXACIN HCL 500 MG TABLET PO SCH (14:41)
[2019-12-02] MEDS: DOCUSATE SODIUM 100 MG CAPSULE PO SCH (14:41)
[2019-12-02] MEDS: NYSTATIN CREAM 15 GM TP SCH (14:42)
[2019-12-02] MEDS: NICOTINE 14 MG/24 HR PATCH.TD24 TD SCH (14:43)
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
== END 2019-12-02 14:46 | disposition home or self-care (01) | DRG 637 ==
LOC: ER 13:16 → EH 17:46 → 4S 19:14
PROVIDERS: ADMIT Hospitalist; ATTEND Registered Nurse
DX: E11.65 Type 2 diabetes mellitus with hyperglycemia (principal); J69.0 Pneumonitis due to inhalation of food and vomit; N39.0 Urinary tract infection, site not specified; B37.89 Other sites of candidiasis; N17.9 Acute kidney failure, unspecified; I50.22 Chronic systolic (congestive) heart failure; E11.40 Type 2 diabetes mellitus with diabetic neuropathy, unspecified; I11.0 Hypertensive heart disease with heart failure; F17.210 Nicotine dependence, cigarettes, uncomplicated; B96.1 Klebsiella pneumoniae [K. pneumoniae] as the cause of diseases classified elsewhere; I25.10 Atherosclerotic heart disease of native coronary artery without angina pectoris; R45.1 Restlessness and agitation; Z60.8 Other problems related to social environment; J44.9 Chronic obstructive pulmonary disease, unspecified; M19.90 Unspecified osteoarthritis, unspecified site; G89.29 Other chronic pain; R09.02 Hypoxemia; M54.9 Dorsalgia, unspecified; R00.0 Tachycardia, unspecified; Z76.5 Malingerer [conscious simulation]; Z79.899 Other long term (current) drug therapy; I25.2 Old myocardial infarction; Z88.0 Allergy status to penicillin; Z71.6 Tobacco abuse counseling; Z91.19 Patient's noncompliance with other medical treatment and regimen; Z79.4 Long term (current) use of insulin; Z88.6 Allergy status to analgesic agent; Z86.73 Personal history of transient ischemic attack (TIA), and cerebral infarction without residual deficits; Z95.0 Presence of cardiac pacemaker
CPT/HCPCS: 36415; 71045; 80048; 80053; 81001; 82550; 82553; 82962; 83036; 83735; 83880; 84443; 84484; 85025; 85610; 85730; 87086; 87088; 87186; 93005; 93010; 94640; 96361; 96374; 99285; J1650; J1815; J1940; J2185; J2310; J3370; J3490; J7030; J7040; J7060; J7620; S0119

== ENCOUNTER 2020-02-02 21:46 | Emergency (ER) | payer MEDICAID ==
--- NOTE | 2020-02-02 22:09 | ER Document Report ---
ED General - General Chief Complaint: Vaginal Pain Stated Complaint: URINARY PROBLEM Time Seen by Provider: 02/02/20 22:04 Mode of Arrival: Medic Information source: Patient TRAVEL OUTSIDE OF THE [place] IN LAST 30 DAYS: No - HPI Onset: Other - over the last several days Onset/Duration: Gradual Quality of pain: Burning Severity: Moderate Pain Level: 3 Associated symptoms: Other - hyperglycemia, pain with urination Exacerbated by: Denies Relieved by: Denies Similar symptoms previously: Yes - Patient has been seen in this ER several times for hyperglycemia Recently seen / treated by doctor: Yes - Admitted for hyperglycemia in November 2019 Notes: 59 year old female with a history of DM (poorly controlled), HTN, COPD, Chronic Back and Leg Pain who has been to this ER every month in 2019 for hyperglycemia here in the ER for hyperglycemia, burning with urination, and a rash on her inner thighs and area. The patient is a diabetic and she has not been taking her insulin because she says she does not have a glucometer. The patient lives with her daughter. The patient endorses some mild fevers yesterday to 100.0F - Related Data Allergies/Adverse Reactions: peanut Allergy (Verified 11/28/19 01:29) Penicillins Allergy (Verified 10/28/19 08:10) pregabalin [From Lyrica] Allergy (Verified 10/28/19 08:10) fentanyl Adverse Reaction (Verified 10/28/19 08:10) ketorolac [From Toradol] Adverse Reaction (Verified 10/28/19 08:10) Past Medical History - General Information source: Patient - Social History Smoking Status: Current Every Day Smoker Frequency of alcohol use: None Drug Abuse: None Family History: Reviewed & Not Pertinent Patient has homicidal ideation: No - Past Medical History Cardiac Medical History: Reports: Hx Congestive Heart Failure, Hx Hypercholesterolemia, Hx Hypertension Pulmonary Medical History: Reports: Hx COPD Endocrine Medical History: Reports: Hx Diabetes Mellitus Type 2 Musculoskeletal Medical History: Reports Hx Arthritis Psychiatric Medical History: Reports: Hx Depression Past Surgical History: Reports: Hx Section, Hx Hysterectomy, Hx Orthopedic Surgery - R foot bone biopsy Review of Systems - Review of Systems Constitutional: Other - hyperglycemia EENT: No symptoms reported Cardiovascular: No symptoms reported Respiratory: No symptoms reported Gastrointestinal: No symptoms reported Genitourinary: Dysuria Female Genitourinary: Other - red rash of groin area Musculoskeletal: No symptoms reported Skin: Other - red rash of groin area Hematologic/Lymphatic: No symptoms reported Neurological/Psychological: No symptoms reported -: Yes All other systems reviewed and negative Physical Exam - Vital signs Vitals: Temp 98.3 F 02/02/20 21:47 - Notes Notes: GENERAL: Well-appearing, well-nourished and in no acute distress. HEAD: Atraumatic, normocephalic. EYES: Pupils equal round and reactive to light, extraocular movements intact, sclera anicteric, conjunctiva are normal. ENT: External ears normal, nares patent, oropharynx clear without exudates. Moist mucous membranes. NECK: Normal range of motion, supple without lymphadenopathy or JVD. LUNGS: Breath sounds clear to auscultation bilaterally and equal. No wheezes rales or rhonchi. HEART: Regular rate and rhythm without murmurs, rubs or gallops. ABDOMEN: Soft, nontender, normoactive bowel sounds. No guarding, no rebound. No masses appreciated. : Groin rash present (see skin section). EXTREMITIES: Normal range of motion, no pitting or edema. No clubbing or cyanosis. NEUROLOGICAL: Cranial nerves II through XII grossly intact. Normal speech, normal gait. PSYCH: Normal mood, normal affect. SKIN: Warm, Dry, normal turgor. Groin area and inner thighs has a red rash consistent with a fungal infection. Course - Re-evaluation Re-evalutation: 02/03/20 02:34 The patient has poorly controlled diabetes and chronic pain. The patient tells me she cannot find a glucometer and she has trouble getting her insulin. The patient also has been dealing with a yeast infection of her groin which I explained to her would not get better unless she got her blood sugars better controlled. The patient already has nystatin from previous visits. Patient was treated with fluids and insulin in the ER initially. She later refused an addition dose of insulin and fluids and she refused to give a UA. Patient then signed out against medical advice. 02/03/20 05:24 The patient had no ride home so she ended up staying for treatment and she allowed us to obtain a UA. UA showed she has a UTI. Will obtain urine culture and treat with Cipro based on prior urine cultures. Patient's glucose came down with fluids and insulin. Patient told she needs to have better glycemic control or she will continue to have infections and other complications of diabetes. Patient also prescribed Nystatin/Steroid Cream for her Joana infection of her GI area. - Vital Signs Vital signs: Temp Pulse Resp BP Pulse Ox 98.3 F 17 142/58 H 100 02/02/20 21:47 02/03/20 00:01 02/03/20 01:01 02/03/20 01:01 - Laboratory Result Diagrams: 02/03/20 00:49 02/03/20 00:49 Laboratory results interpreted by me: 02/03/20 02/03/20 02/03/20 00:49 00:49 04:20 WBC 15.4 H Absolute Neuts (auto) 10.6 H Sodium 131.9 L BUN 24 H Glucose 302 H Calcium 8.2 L Alkaline Phosphatase 153 H Total Protein 5.6 L Albumin 2.7 L Urine Protein >=500 H Urine Glucose (UA) >=500 H Urine Blood SMALL H Ur Leukocyte Esterase LARGE H Discharge - Discharge Clinical Impression: Hyperglycemia, Joana albicans infection UTI (urinary tract infection) Qualifiers: Urinary tract infection type: site unspecified Hematuria presence: without hematuria Qualified Code(s): N39.0 - Urinary tract infection, site not specified Condition: Stable Disposition: HOME, SELF-CARE Instructions: Urinary Tract Infection ([facility]), Vaginal Yeast Infection ([facility]), Hyp erglycemia ([facility]) Additional Instructions: You need to buy a glucometer and take your insulin as previously prescribed. You will continue to get infections such as UTIs and yeast infections until your blood sugars are better controlled. Use your previously prescribed Nystatin or use the Nystatin/Steroid Combination prescribed today on your groin rash. Take oral antibiotics (Ciprofloxacin) as prescribed for your UTI. Follow up with a primary care doctor as soon possible since you have several chronic diseases which are not well controlled. Prescriptions: Ciprofloxacin HCl [Cipro 500 mg Tablet] 500 mg PO BID #14 tablet Nystatin/Triamcin [Mycolog-II Cream 15 gm] 1 applic TP BID 14 Days #1 tube Referrals: DEEPTHI POLLACK MD [ACTIVE STAFF] - Follow up as needed REY STRINGER MD [ACTIVE STAFF] - Follow up as needed
[2020-02-02] MEDS ORDERED: INSULIN REG, HUMAN 100 UNIT/ML 3 ML VIAL (PYX) SUBCUT ONE (22:29)
[2020-02-02] MEDS ORDERED: ACETAMINOPHEN 325 MG TABLET PO ONE (22:30)
[2020-02-02] MEDS: NORMAL SALINE 1000 ML 1,000 ML IV ONE (23:16)
[2020-02-03 00:56] LABS: ABSOLUTE BASOPHILS # (AUTO) 0.1 10^3/uL (0.0-0.2); ABSOLUTE EOSINOPHILS # (AUTO) 0.1 10^3/uL (0.0-0.6); ABSOLUTE LYMPHOCYTES (AUTO) 3.8 10^3/uL (0.5-4.7); ABSOLUTE MONOCYTES (AUTO) 0.8 10^3/uL (0.1-1.4); ABSOLUTE NEUT (AUTO) 10.6 10^3/uL (1.7-8.2); BASOPHILS % (AUTO) 0.7 % (0-2); EOSINOPHILS % (AUTO) 0.8 % (0-6); HEMATOCRIT 37.2 % (36.0-47.0); HEMOGLOBIN 12.5 g/dL (12.0-15.5); LYMPHOCYTES % (AUTO) 24.6 % (13-45); MEAN CORPUSCULAR HEMOGLOBIN 29.3 pg (27.0-33.4); MEAN CORPUSCULAR HGB CONC 33.6 g/dL (32.0-36.0); MEAN CORPUSCULAR VOLUME 87 fl (80-97); MONOCYTES % (AUTO) 5.2 % (3-13); PLATELET COUNT 239 10^3/uL (150-450); RED BLOOD COUNT 4.27 10^6/uL (3.72-5.28); RED CELL DISTRIBUTION WIDTH 13.2 % (11.5-14.0); SEGMENTED NEUTROPHILS % (AUTO) 68.7 % (42-78); TOTAL CELLS COUNTED % (AUTO) 100 %; WHITE BLOOD COUNT 15.4 10^3/uL (4.0-10.5)
[2020-02-03 01:07] LABS: ALBUMIN 2.7 g/dL (3.5-5.0); ALKALINE PHOSPHATASE 153 U/L (38-126); ANION GAP 6 (5-19); ASPARTATE AMINO TRANSFERASE 16 U/L (14-36); BILIRUBIN,TOTAL 0.3 mg/dL (0.2-1.3); BLOOD UREA NITROGEN 24 mg/dL (7-20); CALCIUM 8.2 mg/dL (8.4-10.2); CARBON DIOXIDE 26 mmol/L (22-30); CHLORIDE 100 mmol/L (98-107); GLUCOSE 302 mg/dL (75-110); POTASSIUM 3.7 mmol/L (3.6-5.0); TOTAL PROTEIN 5.6 g/dL (6.3-8.2)
[2020-02-03] MEDS ORDERED: INSULIN REG, HUMAN 100 UNIT/ML 3 ML VIAL (PYX) SUBCUT ONE (01:40)
[2020-02-03] MEDS ORDERED: NORMAL SALINE 1000 ML 1,000 ML IV ONE (01:41)
[2020-02-03] MEDS: NORMAL SALINE 1000 ML 1,000 ML IV ONE (02:07)
[2020-02-03 04:38] LABS: APPEARANCE,URINE CLOUDY; BILIRUBIN,URINE NEGATIVE (NEGATIVE); COLOR,URINE YELLOW; GLUCOSE, URINE >=500 mg/dL (NEGATIVE); KETONES,URINE NEGATIVE (NEGATIVE); LEUKOCYTE ESTERASE,URINE LARGE (NEGATIVE); NITRITE,URINE NEGATIVE (NEGATIVE); PROTEIN,URINE >=500 mg/dL (NEGATIVE); URINE SPECIFIC GRAVITY 1.022; UROBILINOGEN,URINE NEGATIVE mg/dL (<2.0)
[2020-02-03] MEDS ORDERED: CIPROFLOXACIN HCL 500 MG TABLET PO ONE (05:15)
[2020-02-03 06:13] VITALS: BP 128/57
== END 2020-02-03 06:26 | disposition home or self-care (01) ==
LOC: ER 21:46
DX: N39.0 Urinary tract infection, site not specified (principal); E11.65 Type 2 diabetes mellitus with hyperglycemia; B37.3 Candidiasis of vulva and vagina; R10.2 Pelvic and perineal pain; J44.9 Chronic obstructive pulmonary disease, unspecified; G89.29 Other chronic pain; M54.9 Dorsalgia, unspecified; I50.9 Heart failure, unspecified; I11.0 Hypertensive heart disease with heart failure; F17.200 Nicotine dependence, unspecified, uncomplicated; Z88.0 Allergy status to penicillin; Z91.010 Allergy to peanuts; Z90.710 Acquired absence of both cervix and uterus
CPT/HCPCS: 99284; 36415; 82962; 85025; 80053; 81001; J3490 ×2; J1815; 87086; 87088; J7030

== ENCOUNTER 2020-02-17 06:11 | Inpatient (IN) | payer MEDICAID ==
[2020-02-17 07:28] LABS: ALBUMIN 2.9 g/dL (3.5-5.0); ALKALINE PHOSPHATASE 232 U/L (38-126); ANION GAP 8 (5-19); ASPARTATE AMINO TRANSFERASE 16 U/L (14-36); BILIRUBIN,TOTAL 0.3 mg/dL (0.2-1.3); BLOOD UREA NITROGEN 32 mg/dL (7-20); CALCIUM 8.5 mg/dL (8.4-10.2); CARBON DIOXIDE 22 mmol/L (22-30); CHLORIDE 93 mmol/L (98-107); POTASSIUM 4.8 mmol/L (3.6-5.0)
[2020-02-17 07:45] LABS: GLUCOSE 850 mg/dL (75-110)
[2020-02-17] MEDS ORDERED: NORMAL SALINE 1000 ML 1,000 ML IV ONE (07:57)
--- NOTE | 2020-02-17 08:03 | ER Document Report ---
ED General - General Chief Complaint: High Blood Sugar Stated Complaint: POSSIBLE RASH Time Seen by Provider: 02/17/20 07:51 Mode of Arrival: Medic Information source: Patient TRAVEL OUTSIDE OF THE [place] IN LAST 30 DAYS: No - HPI Onset: Other - for the last several weeks Onset/Duration: Gradual Severity: Moderate Pain Level: 2 Associated symptoms: Other - groin rash, elevated blood sugars, weakness, chronic pain Exacerbated by: Denies Relieved by: Denies Similar symptoms previously: Yes Recently seen / treated by doctor: Yes - patient seen in this ER on 02/02/20 for similar issues Notes: 59 year old female with a history of DM, HTN, HLD, CHF, COPD, Arthritis, Depression, and Medication Noncompliance here in the ER for a persistent rash around her groin, elevated blood sugars, chronic pain, and a desire to be placed in a retirement. The patient has been to this ER multiple times for the same issues. The patient denies fevers, chills, sweats, abdominal pain, nausea, vomiting. - Related Data Allergies/Adverse Reactions: peanut Allergy (Verified 11/28/19 01:29) Penicillins Allergy (Verified 10/28/19 08:10) pregabalin [From Lyrica] Allergy (Verified 10/28/19 08:10) fentanyl Adverse Reaction (Verified 10/28/19 08:10) ketorolac [From Toradol] Adverse Reaction (Verified 10/28/19 08:10) Past Medical History - General Information source: Patient - Social History Smoking Status: Current Every Day Smoker Frequency of alcohol use: None Drug Abuse: None Lives with: Family - daughter Family History: Reviewed & Not Pertinent Patient has suicidal ideation: No Patient has homicidal ideation: No - Past Medical History Cardiac Medical History: Reports: Hx Congestive Heart Failure, Hx Hypercholesterolemia, Hx Hypertension Pulmonary Medical History: Reports: Hx COPD Endocrine Medical History: Reports: Hx Diabetes Mellitus Type 2 Musculoskeletal Medical History: Reports Hx Arthritis Psychiatric Medical History: Reports: Hx Depression Past Surgical History: Reports: Hx Section, Hx Hysterectomy, Hx Orthopedic Surgery - R foot bone biopsy Review of Systems - Review of Systems Constitutional: Weakness EENT: No symptoms reported Cardiovascular: No symptoms reported Respiratory: Cough Gastrointestinal: No symptoms reported Genitourinary: No symptoms reported Female Genitourinary: No symptoms reported Musculoskeletal: No symptoms reported Skin: Rash - chronic in groin area Hematologic/Lymphatic: No symptoms reported Neurological/Psychological: No symptoms reported -: Yes All other systems reviewed and negative Physical Exam - Vital signs Vitals: Pulse Ox 98 02/17/20 06:14 - Notes Notes: GENERAL: Well-appearing, well-nourished and in no acute distress. HEAD: Atraumatic, normocephalic. EYES: Pupils equal round and reactive to light, extraocular movements intact, sc mona anicteric, conjunctiva are normal. ENT: External ears normal, nares patent, oropharynx clear without exudates. Moist mucous membranes. NECK: Normal range of motion, supple without lymphadenopathy or JVD. LUNGS: Breath sounds clear to auscultation bilaterally and equal. No wheezes rales or rhonchi. HEART: Regular rate and rhythm without murmurs, rubs or gallops. ABDOMEN: Soft, nontender, normoactive bowel sounds. No guarding, no rebound. No masses appreciated. EXTREMITIES: Normal range of motion, no pitting or edema. No clubbing or cyanosis. NEUROLOGICAL: Cranial nerves II through XII grossly intact. Normal speech, normal gait. PSYCH: Normal mood, normal affect. SKIN: Rash in groin area consistent with yeast infection. Otherwise Warm, Dry, normal turgor, no lesions noted. Course - Re-evaluation Re-evalutation: 02/17/20 08:52 The patient is here for hyperglycemia, chronic joana infection of her groin, and chronic pain. Patient found to have a moderately low sodium as well. Patient treated with fluids and an insulin drip in the ER and she was admitted for further treatment and care. The patient has social issues in the fact that she cannot care for herself and it doesnt seem her family is helping care for her either. - Vital Signs Vital signs: Temp Pulse Resp BP Pulse Ox 98.7 F 20 139/70 H 99 02/17/20 06:41 02/17/20 07:00 02/17/20 06:17 02/17/20 07:00 - Laboratory Result Diagrams: 02/17/20 08:22 02/17/20 07:00 Laboratory results interpreted by me: 02/17/20 02/17/20 02/17/20 06:46 07:00 08:22 WBC 12.6 H Hgb 11.7 L Hct 35.3 L Absolute Neuts (auto) 9.0 H Sodium 123.4 L Chloride 93 L BUN 32 H Est GFR ( Amer) 58 L Est GFR (MDRD) Non-Af 48 L Glucose 850 H* POC Glucose > 550 H* Alkaline Phosphatase 232 H Total Protein 6.0 L Albumin 2.9 L - Diagnostic Test Radiology reviewed: Image reviewed, Reports reviewed Critical Care Note - Critical Care Note Total time excluding time spent on procedures (mins): 31 Discharge - Discharge Clinical Impression: Hyperglycemia, Noncompliance, Joana infection of genital region Condition: Stable Disposition: ADMITTED INPATIENT Admitting Provider: Nahum (Hospitalist) Unit Admitted: Medical Floor
[2020-02-17 08:36] LABS: ABSOLUTE LYMPHOCYTES (AUTO) 2.3 10^3/uL (0.5-4.7); ABSOLUTE MONOCYTES (AUTO) 1.2 10^3/uL (0.1-1.4); BASOPHILS % (AUTO) 0.3 % (0-2); EOSINOPHILS % (AUTO) 0.4 % (0-6); HEMATOCRIT 35.3 % (36.0-47.0); HEMOGLOBIN 11.7 g/dL (12.0-15.5); LYMPHOCYTES % (AUTO) 18.2 % (13-45); MEAN CORPUSCULAR HEMOGLOBIN 29.6 pg (27.0-33.4); MEAN CORPUSCULAR VOLUME 90 fl (80-97); MONOCYTES % (AUTO) 9.5 % (3-13); PLATELET COUNT 225 10^3/uL (150-450); RED BLOOD COUNT 3.94 10^6/uL (3.72-5.28); RED CELL DISTRIBUTION WIDTH 13.5 % (11.5-14.0); SEGMENTED NEUTROPHILS % (AUTO) 71.6 % (42-78); TOTAL CELLS COUNTED % (AUTO) 100 %; WHITE BLOOD COUNT 12.6 10^3/uL (4.0-10.5)
--- NOTE | 2020-02-17 08:50 | RADIOLOGY REPORT (SQ) ---
EXAM DESCRIPTION: CHEST SINGLE VIEW IMAGES COMPLETED DATE/TIME: 02/17/2020 8:31 am REASON FOR STUDY: eval for pneumonia COMPARISON: AP view of the chest from 11/30/2019. EXAM PARAMETERS: NUMBER OF VIEWS: One view. TECHNIQUE: An AP view of the chest was obtained. RADIATION DOSE: NA LIMITATIONS: None. FINDINGS: LUNGS AND PLEURA: No consolidation, pleural effusion or pneumothorax. MEDIASTINUM AND HILAR STRUCTURES: No mediastinal or hilar contour abnormality. HEART AND VASCULAR STRUCTURES: The cardiac silhouette and pulmonary vasculature are within normal bain its. BONES: No acute findings. HARDWARE: Coronary stent and left subclavian vein approach transvenous pacemaker. OTHER: No other finding. IMPRESSION: No acute cardiopulmonary process. TECHNICAL DOCUMENTATION: JOB ID: [id number] 2010 [employer]- All Rights Reserved Reading location - IP/workstation name: [email or web address]
[2020-02-17] MEDS ORDERED: DEXTROSE 50%-WATER 25 GM/50 ML DISP.SYRIN IV PRN ×8 (08:53→12:41)
[2020-02-17] MEDS ORDERED: DEXTROSE 40% GEL 15 GM TUBE PO PRN ×8 (08:53→12:41)
[2020-02-17] MEDS ORDERED: GLUCAGON,HUMAN RECOMB 1 MG INJ IM PRN ×4 (08:53→12:41)
[2020-02-17] MEDS ORDERED: NORMAL SALINE 100 ML with INSULIN REGULAR, HUMAN 100 UNIT IV PRN ×4 (08:53→10:20)
[2020-02-17 09:02] LABS: APPEARANCE,URINE CLEAR; BILIRUBIN,URINE NEGATIVE (NEGATIVE); COLOR,URINE COLORLESS; GLUCOSE, URINE >=500 mg/dL (NEGATIVE); KETONES,URINE NEGATIVE (NEGATIVE); LEUKOCYTE ESTERASE,URINE MODERATE (NEGATIVE); NITRITE,URINE NEGATIVE (NEGATIVE); PROTEIN,URINE 100 mg/dL (NEGATIVE); URINE SPECIFIC GRAVITY 1.022; UROBILINOGEN,URINE NEGATIVE mg/dL (<2.0)
[2020-02-17 09:04] LABS: VENOUS BLOOD BASE EXCESS 0.5 mmol/L; VENOUS BLOOD PCO2 44.5 mmHg (35-63); VENOUS BLOOD PH 7.38 (7.30-7.42)
[2020-02-17 09:07] LABS: ADD MANUAL MICROSCOPIC YES
[2020-02-17] MEDS ORDERED: INSULIN REG, HUMAN 100 UNIT/ML 3 ML VIAL (PYX) ONE (09:09)
[2020-02-17 09:11] LABS: RBC,URINE NONE SEEN /HPF
[2020-02-17] MEDS ORDERED: PROMETHAZINE HCL INJ 25 MG/1 ML VIAL IV PRN (10:13)
[2020-02-17] MEDS ORDERED: ONDANSETRON 4 MG TAB.RAPDIS PO PRN (10:13)
[2020-02-17] MEDS ORDERED: ACETAMINOPHEN 325 MG TABLET PO PRN (10:13)
[2020-02-17] MEDS ORDERED: IPRATROPIUM/ALBUTEROL 0.5-2.5 MG/3 ML AMPUL NEB PRN (10:13)
[2020-02-17] MEDS ORDERED: HYDRALAZINE HCL INJ/PF 20 MG/1 ML SDV IV PRN (10:23)
[2020-02-17] MEDS ORDERED: METOPROLOL TARTRATE PF/INJ 5 MG/5 ML SDV IV PRN (10:23)
[2020-02-17] MEDS ORDERED: NICOTINE 14 MG/24 HR PATCH.TD24 TD PRN (10:25)
[2020-02-17] MEDS: NORMAL SALINE 1000 ML 1,000 ML IV PRN ×2 (10:52→21:21)
[2020-02-17] MEDS: PERMETHRIN 5% CREAM 60 GM TP SCH (10:56)
[2020-02-17] MEDS: OXYCODONE-ACETAMINOPHEN 5-325 MG TABLET PO PRN ×3 (12:10→21:27)
[2020-02-17] MEDS: METOCLOPRAMIDE HCL 10 MG TABLET PO SCH ×3 (12:10→21:21)
[2020-02-17] MEDS: FLUCONAZOLE 100 MG TABLET PO SCH (12:16)
[2020-02-17] MEDS ORDERED: INSULIN GLARGINE,HUM.REC.ANLOG 1,000 UNIT/10 ML VIAL SUBCUT SCH (12:45)
[2020-02-17 13:07] LABS: ANION GAP 7 (5-19); BLOOD UREA NITROGEN 26 mg/dL (7-20); CALCIUM 8.7 mg/dL (8.4-10.2); CARBON DIOXIDE 24 mmol/L (22-30); CHLORIDE 103 mmol/L (98-107); GLUCOSE 214 mg/dL (75-110)
[2020-02-17] MEDS: CLONAZEPAM 1 MG TABLET PO SCH ×2 (13:09→21:21)
[2020-02-17 13:20] LABS: POTASSIUM 3.7 mmol/L (3.6-5.0)
[2020-02-17] MEDS ORDERED: INSULIN GLARGINE,HUM.REC.ANLOG 1,000 UNIT/10 ML VIAL (PYX) SUBCUT ONE (13:30)
--- NOTE | 2020-02-17 15:27 | PDOC H&P ---
History of Present Illness Admission Date/PCP: 02/17/20 09:42 History of Present Illness: LEILANI ALMODOVRA is a 59 year old female with past medical history of uncontrolled hypertension, CAD, CHF, uncontrolled diabetes, anxiety, history of noncompliance, who recently moved from [place] to [place] to be closer to her daughter presenting to the ED complaining of persistent chronic back pain, persistent perineal area rash and uncontrolled blood sugars. Patient is stating that she is unable to care for herself and her daughter does not help her much, she is also stating that she is not able to provide for her medications and she has been noncompliant with her diabetes and hypertension management. In ED was noted to be very hyperglycemic, hyponatremic at dehydrated, will start on volume resuscitation and insulin drip and hospitalist consulted for admission. Patient denies any headache, fever, cough, nausea, chest pain, palpitation, vomiting, abdominal pain, diarrhea, constipation, dysuria, urgency. Past Medical History Cardiac Medical History: Reports: Congestive Heart Failure, Hyperlipidema, Hypertension Pulmonary Medical History: Reports: Chronic Obstructive Pulmonary Disease (COPD) Endocrine Medical History: Reports: Diabetes Mellitus Type 2 Musculoskeltal Medical History: Reports: Arthritis Psychiatric Medical History: Reports: Depression Past Surgical History Past Surgical History: Reports: Section, Hysterectomy, Orthopedic Surgery - R foot bone biopsy Social History Lives with: Family - daughter Smoking Status: Current Every Day Smoker Family History Family History: Reviewed & Not Pertinent Parental Family History Reviewed: Yes Children Family History Reviewed: Yes Sibling(s) Family History Reviewed.: Yes Medication/Allergy Home Medications: Clonazepam [Klonopin 1 mg Tablet] 1 mg PO Q8 02/17/20 Insulin Regular, Human [Humulin R (Reg) Insulin 100 unit/mL] 28 units SQ QHS 02/17/20 Metoclopramide HCl [Reglan 10 mg Tablet] 10 mg PO Q8HP PRN 02/17/20 Oxycodone HCl/Acetaminophen [Percocet 5-325 mg Tablet] 1 tab PO Q6HP PRN 02/17/20 Allergies/Adverse Reactions: peanut Allergy (Verified 11/28/19 01:29) Penicillins Allergy (Verified 10/28/19 08:10) pregabalin [From Lyrica] Allergy (Verified 10/28/19 08:10) fentanyl Adverse Reaction (Verified 10/28/19 08:10) ketorolac [From Toradol] Adverse Reaction (Verified 10/28/19 08:10) Review of Systems Constitutional: PRESENT: weakness. ABSENT: chills, fever(s), headache(s), weight gain, weight loss Cardiovascular: ABSENT: chest pain, dyspnea on exertion, edema, orthropnea, palpitations Respiratory: ABSENT: cough, hemoptysis Gastrointestinal: ABSENT: abdominal pain, constipation, diarrhea, hematemesis, hematochezia, nausea, vomiting Neurological: ABSENT: abnormal gait, abnormal speech, confusion, dizziness, focal weakness, syncope Physical Exam Vital Signs: Temp Pulse Resp BP Pulse Ox 98.8 F 94 18 159/67 H 100 02/17/20 11:59 02/17/20 11:59 02/17/20 11:59 02/17/20 11:59 02/17/20 11:59 Intake & Output 02/16/20 02/17/20 02/18/20 06:59 06:59 06:59 Intake Total 1003 Output Total 297 Balance 706 Weight 52 kg 49.6 kg Results Laboratory Results: 02/17/20 08:22 02/17/20 12:10 02/17/20 02/17/20 02/17/20 07:00 07:00 08:22 WBC Cancelled 12.6 H RBC Cancelled 3.94 Hgb Cancelled 11.7 L Hct Cancelled 35.3 L MCV Cancelled 90 MCH Cancelled 29.6 MCHC Cancelled 33.0 RDW Cancelled 13.5 Plt Count Cancelled 225 Seg Neutrophils % Cancelled 71.6 VBG pH VBG pCO2 VBG HCO3 VBG Base Excess Sodium 123.4 L Potassium 4.8 Chloride 93 L Carbon Dioxide 22 Anion Gap 8 BUN 32 H Creatinine 1.17 Est GFR ( Amer) 58 L Glucose 850 H* Lactic Acid Calcium 8.5 Total Bilirubin 0.3 AST 16 Alkaline Phosphatase 232 H Total Protein 6.0 L Albumin 2.9 L Urine Color Urine Appearance Urine pH Ur Specific [place] Urine Protein Urine Glucose (UA) Urine Ketones Urine Blood Urine Nitrite Ur Leukocyte Esterase 02/17/20 02/17/20 02/17/20 08:22 08:22 08:45 WBC RBC Hgb Hct MCV MCH MCHC RDW Plt Count Seg Neutrophils % VBG pH 7.38 VBG pCO2 44.5 VBG HCO3 26.0 VBG Base Excess 0.5 Sodium Potassium Chloride Carbon Dioxide Anion Gap BUN Creatinine Est GFR ( Amer) Glucose Lactic Acid 1.4 Calcium Total Bilirubin AST Alkaline Phosphatase Total Protein Albumin Urine Color COLORLESS Urine Appearance CLEAR Urine pH 7.0 Ur Specific [place] 1.022 Urine Protein 100 H Urine Glucose (UA) >=500 H Urine Ketones NEGATIVE Urine Blood NEGATIVE Urine Nitrite NEGATIVE Ur Leukocyte Esterase MODERATE H 02/17/20 12:10 WBC RBC Hgb Hct MCV MCH MCHC RDW Plt Count Seg Neutrophils % VBG pH VBG pCO2 VBG HCO3 VBG Base Excess Sodium 134.3 L Potassium 3.7 D Chloride 103 Carbon Dioxide 24 Anion Gap 7 BUN 26 H Creatinine 0.97 Est GFR ( Amer) > 60 Glucose 214 H Lactic Acid Calcium 8.7 Total Bilirubin AST Alkaline Phosphatase Total Protein Albumin Urine Color Urine Appearance Urine pH Ur Specific [place] Urine Protein Urine Glucose (UA) Urine Ketones Urine Blood Urine Nitrite Ur Leukocyte Esterase Impressions: Chest X-Ray 02/17/20 08:01 IMPRESSION: No acute cardiopulmonary process. Assessment and Plan - Diagnosis (1) Hyperosmolar non-ketotic state in patient with type 2 diabetes mellitus Is this a current diagnosis for this admission?: Yes Plan: Due to noncompliance. Presented with blood glucose level of 550. Admit to telemetry, start on insulin drip and transition to subcutaneous insulin once blood glucose levels were in acceptable range. Diabetic diet, diabetic education, sliding scale, prandial and basal insulin. Hypoglycemic protocol. (2) Uncontrolled hypertension Is this a current diagnosis for this admission?: Yes Plan: Due to noncompliance. We will start on lisinopril and beta-blockers. Adjust dosage as needed. Monitor vitals. Outpatient PCP follow-up. (3) Candidiasis of perineum Is this a current diagnosis for this admission?: Yes Plan: Most likely to severe uncontrolled diabetes. We will start on Diflucan. Wound care. Optimize diabetic care. (6) UTI (urinary tract infection) Qualifiers: Urinary tract infection type: acute cystitis Is this a current diagnosis for this admission?: Yes Plan: Likely due to gram-negative rods including E. coli. History of E. coli and Klebsiella pneumoniae UTIs pansensitive. Admit to floor, empiric p.o. antibiotics, urine culture. (7) Noncompliance Is this a current diagnosis for this admission?: Yes Plan: Advised on compliance. Patient would benefit from placement in a snf or assisted living for better management of his multiple underlying chronic disease. Discharge planning consulted. (8) CAD (coronary artery disease) Qualifiers: Coronary Disease-Associated Artery/Lesion type: [place] artery Is this a current diagnosis for this admission?: Yes Plan: History of CAD. Status post 4 stent placement. Denies any chest pain. No acute EKG changes. Troponins negative. Resume home meds. Outpatient PCP and cardiology follow-up.
[2020-02-17] MEDS ORDERED: INSULIN LISPRO 100 UNIT/ML 3 ML VIAL SUBCUT SCH (16:00)
[2020-02-17] MEDS: INSULIN LISPRO 100 UNIT/ML 3 ML VIAL SUBCUT SCH ×2 (17:05→21:20)
[2020-02-17] MEDS: SULFAMETHOXAZOLE/TRIMETHOPRIM 800-160 MG TABLET PO SCH (17:59)
[2020-02-17 18:19] LABS: ANION GAP 6 (5-19); BLOOD UREA NITROGEN 29 mg/dL (7-20); CALCIUM 8.1 mg/dL (8.4-10.2); CARBON DIOXIDE 23 mmol/L (22-30); CHLORIDE 104 mmol/L (98-107); GLUCOSE 219 mg/dL (75-110); POTASSIUM 3.8 mmol/L (3.6-5.0)
[2020-02-17] MEDS: TEMAZEPAM 7.5 MG CAPSULE PO SCH (21:21)
[2020-02-17] MEDS: BUSPIRONE HCL 10 MG TABLET PO SCH (21:21)
[2020-02-17] MEDS: FAMOTIDINE 20 MG TABLET PO SCH (21:21)
[2020-02-18 00:47] LABS: BLOOD UREA NITROGEN 34 mg/dL (7-20); CALCIUM 8.1 mg/dL (8.4-10.2); CARBON DIOXIDE 25 mmol/L (22-30); CHLORIDE 106 mmol/L (98-107); GLUCOSE 134 mg/dL (75-110); POTASSIUM 4.7 mmol/L (3.6-5.0)
[2020-02-18 00:55] LABS: ANION GAP 1 (5-19)
[2020-02-18] MEDS: OXYCODONE-ACETAMINOPHEN 5-325 MG TABLET PO PRN ×6 (01:28→22:48)
[2020-02-18] MEDS: CLONAZEPAM 1 MG TABLET PO SCH ×3 (05:39→21:06)
[2020-02-18 06:10] LABS: ABSOLUTE BASOPHILS # (AUTO) 0.1 10^3/uL (0.0-0.2); ABSOLUTE EOSINOPHILS # (AUTO) 0.2 10^3/uL (0.0-0.6); ABSOLUTE MONOCYTES (AUTO) 1.1 10^3/uL (0.1-1.4); ABSOLUTE NEUT (AUTO) 6.5 10^3/uL (1.7-8.2); BASOPHILS % (AUTO) 0.6 % (0-2); EOSINOPHILS % (AUTO) 1.2 % (0-6); HEMATOCRIT 30.5 % (36.0-47.0); HEMOGLOBIN 10.4 g/dL (12.0-15.5); LYMPHOCYTES % (AUTO) 38.7 % (13-45); MEAN CORPUSCULAR HEMOGLOBIN 29.9 pg (27.0-33.4); MEAN CORPUSCULAR HGB CONC 33.9 g/dL (32.0-36.0); MEAN CORPUSCULAR VOLUME 88 fl (80-97); MONOCYTES % (AUTO) 8.5 % (3-13); PLATELET COUNT 215 10^3/uL (150-450); RED BLOOD COUNT 3.46 10^6/uL (3.72-5.28); RED CELL DISTRIBUTION WIDTH 13.6 % (11.5-14.0); TOTAL CELLS COUNTED % (AUTO) 100 %; WHITE BLOOD COUNT 12.8 10^3/uL (4.0-10.5)
[2020-02-18 06:29] LABS: CHOLESTEROL 253.23 mg/dL (0-200); TRIGLYCERIDES 387 mg/dL (<150)
[2020-02-18 06:40] LABS: DIRECT LDL 165 mg/dL (<100)
[2020-02-18] MEDS: NORMAL SALINE 1000 ML 1,000 ML IV PRN (06:43)
[2020-02-18 06:52] LABS: VLDL CHOLESTEROL 77.4 mg/dL (10-31)
[2020-02-18] MEDS: METOCLOPRAMIDE HCL 10 MG TABLET PO SCH ×4 (08:06→21:08)
[2020-02-18] MEDS: INSULIN LISPRO 100 UNIT/ML 3 ML VIAL SUBCUT SCH ×4 (08:07→21:06)
[2020-02-18] MEDS: FLUCONAZOLE 100 MG TABLET PO SCH (09:46)
[2020-02-18] MEDS: ASPIRIN 81 MG TABLET, CHEWABLE PO SCH (09:46)
[2020-02-18] MEDS: FAMOTIDINE 20 MG TABLET PO SCH ×2 (09:46→21:06)
[2020-02-18] MEDS: DOCUSATE SODIUM 100 MG CAPSULE PO SCH (09:46)
[2020-02-18] MEDS: SULFAMETHOXAZOLE/TRIMETHOPRIM 800-160 MG TABLET PO SCH (09:46)
[2020-02-18] MEDS: PERMETHRIN 5% CREAM 60 GM TP SCH (09:47)
[2020-02-18] MEDS: BUSPIRONE HCL 10 MG TABLET PO SCH ×2 (09:47→21:05)
[2020-02-18] MEDS: ENOXAPARIN SODIUM INJ 40 MG/0.4 ML DISP.SYRIN SUBCUT SCH (09:52)
[2020-02-18] MEDS ORDERED: INSULIN GLARGINE,HUM.REC.ANLOG 1,000 UNIT/10 ML VIAL SUBCUT SCH (10:00)
--- NOTE | 2020-02-18 11:23 | PDOC PROGRESS REPORT ---
Subjective Progress Note for:: 02/18/20 Subjective:: LEILANI ALMODOVAR is a 59 year old female with past medical history of uncontrolled hypertension, CAD, CHF, uncontrolled diabetes, anxiety, history of noncompliance, who recently moved from [place] to [place] to be closer to her daughter presenting to the ED complaining of persistent chronic back pain, persistent perineal area rash and uncontrolled blood sugars. Patient is stating that she is unable to care for herself and her daughter does not help her much, she is also stating that she is not able to provide for her medications and she has been noncompliant with her diabetes and hypertension management. In ED was noted to be very hyperglycemic, hyponatremic at dehydrated, will start on volume resuscitation and insulin drip and hospitalist consulted for admission. Patient denies any headache, fever, cough, nausea, chest pain, palpitation, vomiting, abdominal pain, diarrhea, constipation, dysuria, urgency. 02/18/2020. No acute events overnight. Complaining of back pain and groin pain, otherwise denies any fever, chills, nausea, vomiting, diarrhea, constipation or any urinary symptoms. Alert and oriented, cooperative with physical examination. Pending SNF transfer. Reason For Visit: UTI,UNCONTROLLED DM Physical Exam Vital Signs: Temp Pulse Resp BP Pulse Ox 98.6 F 79 18 122/48 L 99 02/18/20 07:25 02/18/20 07:25 02/18/20 07:25 02/18/20 07:25 02/18/20 07:25 Intake & Output 02/17/20 02/18/20 02/19/20 06:59 06:59 06:59 Intake Total 3798 Output Total 697 Balance 3101 Weight 52 kg 50.8 kg General appearance: PRESENT: no acute distress, well-developed, well-nourished Head exam: PRESENT: atraumatic, normocephalic Respiratory exam: PRESENT: clear to auscultation leydi. ABSENT: rales, rhonchi, wheezes Cardiovascular exam: PRESENT: RRR. ABSENT: diastolic murmur, rubs, systolic murmur GI/Abdominal exam: PRESENT: normal bowel sounds, soft. ABSENT: distended, guarding, mass, organolmegaly, rebound, tenderness Gentrourinary exam: PRESENT: erythema Extremities exam: PRESENT: full ROM. ABSENT: calf tenderness, clubbing, pedal edema Neurological exam: PRESENT: alert, awake, oriented to person, oriented to place, oriented to time, oriented to situation, CN II-XII grossly intact. ABSENT: motor sensory deficit Skin exam: PRESENT: dry, intact, warm. ABSENT: cyanosis, rash Results Laboratory Results: 02/18/20 05:16 02/18/20 00:23 02/17/20 02/17/20 02/18/20 12:10 17:49 00:23 WBC RBC Hgb Hct MCV MCH MCHC RDW Plt Count Seg Neutrophils % Sodium 134.3 L 133.0 L 132.2 L Potassium 3.7 D 3.8 4.7 Chloride 103 104 106 Carbon Dioxide 24 23 25 Anion Gap 7 6 1 L BUN 26 H 29 H 34 H Creatinine 0.97 1.19 1.46 H Est GFR ( Amer) > 60 57 L 45 L Glucose 214 H 219 H 134 H Calcium 8.7 8.1 L 8.1 L Magnesium Triglycerides Cholesterol LDL Cholesterol Direct VLDL Cholesterol HDL Cholesterol TSH 02/18/20 02/18/20 02/18/20 05:16 05:16 05:16 WBC 12.8 H RBC 3.46 L Hgb 10.4 L Hct 30.5 L MCV 88 MCH 29.9 MCHC 33.9 RDW 13.6 Plt Count 215 Seg Neutrophils % 51.0 Sodium Potassium Chloride Carbon Dioxide Anion Gap BUN Creatinine Est GFR ( Amer) Glucose Calcium Magnesium 1.6 Triglycerides 387 H Cholesterol 253.23 H LDL Cholesterol Direct 165 H VLDL Cholesterol 77.4 H HDL Cholesterol 45 TSH 2.67 Impressions: Chest X-Ray 02/17/20 08:01 IMPRESSION: No acute cardiopulmonary process. Assessment and Plan - Diagnosis (1) Diabetes Qualifiers: Diabetes mellitus type: type 2 Diabetes mellitus buttermaker helper insulin use: without long-term use Diabetes mellitus complication status: with hyperglycemia Qualified Code(s): E11.65 - Type 2 diabetes mellitus with hyperglycemia Is this a current diagnosis for this admission?: Yes Plan: History of noncompliance. History of uncontrolled diabetes. Hemoglobin A1c more than 14%. Improving. Continue diabetic education. Continue diabetic diet, basal, sliding scale and prandial insulin. Hypoglycemia protocol. Adjust dosage as needed. (2) Hyperlipidemia Is this a current diagnosis for this admission?: Yes Plan: ASCVD score of 29%. Continue high intensity statin. Diet and lifestyle modification recommended. Monitor LFTs. Outpatient PCP follow-up. (3) Uncontrolled hypertension Is this a current diagnosis for this admission?: Yes Plan: Improving. Not optimized. Due to noncompliance. Refusing to take lisinopril stating she is allergic to it. We will start on low-dose beta-irasema and adjustments as needed. Monitor vitals. Outpatient PCP follow-up. (4) Candidiasis of perineum Is this a current diagnosis for this admission?: Yes Plan: Moderate improvement. Most likely to severe uncontrolled diabetes. Day 2 p.o. Diflucan. Wound care. Optimize diabetic care. (5) Diabetic neuropathy Qualifiers: Diabetes mellitus type: type 2 Is this a current diagnosis for this admission?: Yes Plan: Due to history of uncontrolled diabetes. Complaining of bilateral lower extremity paresthesias. Optimal diabetic control. Daily foot suspected. Gabapentin. (6) Tobacco abuse Is this a current diagnosis for this admission?: Yes Plan: Counseled on quitting. Nicotine patch. (7) UTI (urinary tract infection) Qualifiers: Urinary tract infection type: acute cystitis Is this a current diagnosis for this admission?: Yes Plan: Likely due to gram-negative rods including E. coli. History of E. coli and Klebsiella pneumoniae UTIs pansensitive. Due to antibiotics. See 1 day of Bactrim. DC due to worsening kidney function. Not a candidate for Macrobid due to worsening renal function. Not a candidate beta-lactam due to penicillin allergy. We will start on levofloxacin p.o. Follow-up urine culture. (8) Noncompliance Is this a current diagnosis for this admission?: Yes Plan: Advised on compliance. Patient would benefit from placement in a senior living or assisted living for better management of his multiple underlying chronic disease. Discharge planning consulted. (9) CAD (coronary artery disease) Qualifiers: Coronary Disease-Associated Artery/Lesion type: [place] artery Is this a current diagnosis for this admission?: Yes Plan: History of CAD. Status post 4 stent placement. Denies any chest pain. No acute EKG changes. Troponins negative. Resume home meds. Outpatient PCP and cardiology follow-up. (10) Hyperosmolar non-ketotic state in patient with type 2 diabetes mellitus Is this a current diagnosis for this admission?: Yes Plan: Resolved. Due to noncompliance. Presented with blood glucose level of 550. Admited to telemetry, start on insulin drip and transition to subcutaneous insulin once blood glucose levels were in acceptable range. Diabetic diet, diabetic education, sliding scale, prandial and basal insulin. Hypoglycemic protocol. (11) Acute kidney injury superimposed on CKD Is this a current diagnosis for this admission?: Yes Plan: History of CKD stage III. Likely due to diabetic complication. Acutely worsened likely due to Bactrim for UTI. DC Bactrim. Avoid nephrotoxic meds. Monitor volume status and electrolytes. Replace as needed.
[2020-02-18] MEDS ORDERED: LISINOPRIL 5 MG TABLET PO SCH (11:45)
[2020-02-18] MEDS ORDERED: LISINOPRIL 5 MG TABLET ONE (11:49)
[2020-02-18] MEDS: LEVOFLOXACIN 500 MG TABLET PO SCH (11:50)
[2020-02-18] MEDS: ATORVASTATIN CALCIUM 40 MG TABLET PO SCH (21:06)
[2020-02-18] MEDS: TEMAZEPAM 7.5 MG CAPSULE PO SCH (21:06)
[2020-02-19] MEDS: OXYCODONE-ACETAMINOPHEN 5-325 MG TABLET PO PRN ×5 (03:16→23:00)
[2020-02-19] MEDS: CLONAZEPAM 1 MG TABLET PO SCH ×3 (05:02→22:08)
[2020-02-19 06:23] LABS: ABSOLUTE BASOPHILS # (AUTO) 0.2 10^3/uL (0.0-0.2); ABSOLUTE EOSINOPHILS # (AUTO) 0.1 10^3/uL (0.0-0.6); ABSOLUTE LYMPHOCYTES (AUTO) 3.6 10^3/uL (0.5-4.7); ABSOLUTE MONOCYTES (AUTO) 1.2 10^3/uL (0.1-1.4); ABSOLUTE NEUT (AUTO) 7.1 10^3/uL (1.7-8.2); BASOPHILS % (AUTO) 1.4 % (0-2); EOSINOPHILS % (AUTO) 1.1 % (0-6); HEMATOCRIT 33.3 % (36.0-47.0); HEMOGLOBIN 11.1 g/dL (12.0-15.5); LYMPHOCYTES % (AUTO) 29.3 % (13-45); MEAN CORPUSCULAR HEMOGLOBIN 29.7 pg (27.0-33.4); MEAN CORPUSCULAR HGB CONC 33.4 g/dL (32.0-36.0); MEAN CORPUSCULAR VOLUME 89 fl (80-97); MONOCYTES % (AUTO) 10.2 % (3-13); RED BLOOD COUNT 3.75 10^6/uL (3.72-5.28); RED CELL DISTRIBUTION WIDTH 13.8 % (11.5-14.0); TOTAL CELLS COUNTED % (AUTO) 100 %; WHITE BLOOD COUNT 12.2 10^3/uL (4.0-10.5)
[2020-02-19 06:40] LABS: BLOOD UREA NITROGEN 42 mg/dL (7-20); CALCIUM 8.4 mg/dL (8.4-10.2); CARBON DIOXIDE 22 mmol/L (22-30); CHLORIDE 107 mmol/L (98-107); GLUCOSE 214 mg/dL (75-110); POTASSIUM 5.2 mmol/L (3.6-5.0)
[2020-02-19 06:45] LABS: ANION GAP 4 (5-19)
[2020-02-19 06:57] LABS: PLATELET COUNT 192 10^3/uL (150-450)
[2020-02-19] MEDS: INSULIN LISPRO 100 UNIT/ML 3 ML VIAL SUBCUT SCH ×4 (07:54→22:01)
[2020-02-19] MEDS: METOCLOPRAMIDE HCL 10 MG TABLET PO SCH ×4 (07:54→21:59)
[2020-02-19] MEDS: FAMOTIDINE 20 MG TABLET PO SCH ×2 (09:34→21:59)
[2020-02-19] MEDS: ASPIRIN 81 MG TABLET, CHEWABLE PO SCH (09:34)
[2020-02-19] MEDS: BUSPIRONE HCL 10 MG TABLET PO SCH ×2 (09:34→22:01)
[2020-02-19] MEDS: METOPROLOL SUCCINATE 25 MG TAB.SR.24H PO SCH (09:34)
[2020-02-19] MEDS: DOCUSATE SODIUM 100 MG CAPSULE PO SCH (09:34)
[2020-02-19] MEDS: FLUCONAZOLE 100 MG TABLET PO SCH (09:35)
[2020-02-19] MEDS: LEVOFLOXACIN 500 MG TABLET PO SCH (09:35)
[2020-02-19] MEDS: ENOXAPARIN SODIUM INJ 40 MG/0.4 ML DISP.SYRIN SUBCUT SCH (09:35)
[2020-02-19] MEDS: INSULIN GLARGINE,HUM.REC.ANLOG 1,000 UNIT/10 ML VIAL SUBCUT SCH (09:37)
--- NOTE | 2020-02-19 10:58 | PDOC PROGRESS REPORT ---
Subjective Progress Note for:: 02/19/20 Subjective:: LEILANI ALMODOVAR is a 59 year old female with past medical history of uncontrolled hypertension, CAD, CHF, uncontrolled diabetes, anxiety, history of noncompliance, who recently moved from [place] to [place] to be closer to her daughter presenting to the ED complaining of persistent chronic back pain, persistent perineal area rash and uncontrolled blood sugars. Patient is stating that she is unable to care for herself and her daughter does not help her much, she is also stating that she is not able to provide for her medications and she has been noncompliant with her diabetes and hypertension management. In ED was noted to be very hyperglycemic, hyponatremic at dehydrated, will start on volume resuscitation and insulin drip and hospitalist consulted for admission. Patient denies any headache, fever, cough, nausea, chest pain, palpitation, vomiting, abdominal pain, diarrhea, constipation, dysuria, urgency. 02/18/2020. No acute events overnight. Complaining of back pain and groin pain, otherwise denies any fever, chills, nausea, vomiting, diarrhea, constipation or any urinary symptoms. Alert and oriented, cooperative with physical examination. Pending SNF transfer. 02/19/2020. No acute events overnight. Still complaining of back and groin pain. Dysuria is improving. Denies any chest pain, fever, nausea, vomiting, diarrhea, constipation or any urinary symptoms. Pending transfer to SNF. Reason For Visit: UTI,UNCONTROLLED DM Physical Exam Vital Signs: Temp Pulse Resp BP Pulse Ox 98.2 F 79 17 123/69 99 02/19/20 07:28 02/19/20 07:28 02/19/20 07:28 02/19/20 07:28 02/19/20 07:28 Intake & Output 02/18/20 02/19/20 02/20/20 06:59 06:59 06:59 Intake Total 3798 2066 Output Total 697 530 Balance 3101 1536 Weight 50.8 kg 50.5 kg General appearance: PRESENT: no acute distress, well-developed, well-nourished Head exam: PRESENT: atraumatic, normocephalic Respiratory exam: PRESENT: clear to auscultation leydi. ABSENT: rales, rhonchi, wheezes Cardiovascular exam: PRESENT: RRR. ABSENT: diastolic murmur, rubs, systolic murmur GI/Abdominal exam: PRESENT: normal bowel sounds, soft. ABSENT: distended, guarding, mass, organolmegaly, rebound, tenderness Gentrourinary exam: PRESENT: other - Extensive candidal infection of perineum and suprapubic region. Neurological exam: PRESENT: alert, awake, oriented to person, oriented to place, oriented to time, oriented to situation, CN II-XII grossly intact. ABSENT: motor sensory deficit Results Laboratory Results: 02/19/20 05:44 02/19/20 05:44 02/19/20 02/19/20 05:44 05:44 WBC 12.2 H RBC 3.75 Hgb 11.1 L Hct 33.3 L MCV 89 MCH 29.7 MCHC 33.4 RDW 13.8 Plt Count 192 Seg Neutrophils % 58.0 Sodium 132.8 L Potassium 5.2 H Chloride 107 Carbon Dioxide 22 Anion Gap 4 L BUN 42 H Creatinine 1.43 H Est GFR ( Amer) 46 L Glucose 214 H Calcium 8.4 02/17/20 08:45 Clean Catch Midstream Urine Culture - Final Group B Beta Streptococcus Impressions: Chest X-Ray 02/17/20 08:01 IMPRESSION: No acute cardiopulmonary process. Assessment and Plan - Diagnosis (1) Diabetes Qualifiers: Diabetes mellitus type: type 2 Diabetes mellitus terminal manager insulin use: [facility] longterm use Diabetes mellitus complication status: with hyperglycemia Qualified Code(s): E11.65 - Type 2 diabetes mellitus with hyperglycemia Is this a current diagnosis for this admission?: Yes Plan: History of noncompliance. History of uncontrolled diabetes. Hemoglobin A1c mo re than 14%. Improving. Continue diabetic education. Continue diabetic diet, basal, sliding scale and prandial insulin. Hypoglycemia protocol. Adjust dosage as needed. (2) Acute kidney injury superimposed on CKD Is this a current diagnosis for this admission?: Yes Plan: History of CKD stage III. Likely due to diabetic complication. Acutely worsened likely due to Bactrim for UTI. DC Bactrim. Avoid nephrotoxic meds. Monitor volume status and electrolytes. Replace as needed. (3) Hyperlipidemia Is this a current diagnosis for this admission?: Yes Plan: ASCVD score of 29%. Continue high intensity statin. Diet and lifestyle modification recommended. Monitor LFTs. Outpatient PCP follow-up. (4) Uncontrolled hypertension Is this a current diagnosis for this admission?: Yes Plan: Optimized. History of noncompliance. Refusing to take lisinopril stating she is allergic to it. We will start on low-dose beta-irasema and adjustments as needed. Monitor vitals. Outpatient PCP follow-up. (5) Candidiasis of perineum Is this a current diagnosis for this admission?: Yes Plan: Moderate improvement. Most likely to severe uncontrolled diabetes. Day 3 p.o. Diflucan. Wound care. Optimize diabetic care. (6) Diabetic neuropathy Qualifiers: Diabetes mellitus type: type 2 Is this a current diagnosis for this admission?: Yes Plan: Due to history of uncontrolled diabetes. Complaining of bilateral lower extremity paresthesias. Optimal diabetic control. Daily foot inspection. Gabapentin. (7) Tobacco abuse Is this a current diagnosis for this admission?: Yes Plan: Counseled on quitting. Nicotine patch. (8) UTI (urinary tract infection) Qualifiers: Urinary tract infection type: acute cystitis Is this a current diagnosis for this admission?: Yes Plan: Due to group B beta Streptococcus. History of E. coli and Klebsiella pneumoniae UTIs pansensitive. Day 3 of antibiotics. Received 1 day of Bactrim. DC Bactrim due to worsening kidney function. Not a candidate for Macrobid due to worsening renal function. Not a candidate beta-lactam due to penicillin allergy. Day 2 p.o. levofloxacin. (9) Noncompliance Is this a current diagnosis for this admission?: Yes Plan: Advised on compliance. Patient would benefit from placement in a penitentiary or assisted living for better management of his multiple underlying chronic disease. Discharge planning consulted. (10) CAD (coronary artery disease) Qualifiers: Coronary Disease-Associated Artery/Lesion type: [place] artery Is this a current diagnosis for this admission?: Yes Plan: History of CAD. Status post 4 stent placement. Denies any chest pain. No acute EKG changes. Troponins negative. Resume home meds. Outpatient PCP and cardiology follow-up. (11) Hyperosmolar non-ketotic state in patient with type 2 diabetes mellitus Is this a current diagnosis for this admission?: Yes Plan: Resolved. Due to noncompliance. Presented with blood glucose level of 550. Admited to telemetry, start on insulin drip and transition to subcutaneous insulin once blood glucose levels were in acceptable range. Diabetic diet, diabetic education, sliding scale, prandial and basal insulin. Hypoglycemic protocol.
[2020-02-19] MEDS ORDERED: SODIUM POLYSTYRENE SULFONATE 15 GM/60 ML PO ONE (11:15)
[2020-02-19] MEDS ORDERED: TUBERCULIN,PURIF.PROT.DERIV. 5 TU/0.1 ML TEST 1 ML VIAL ID ONE (16:00)
[2020-02-19] MEDS: NYSTATIN CREAM 15 GM TP SCH (18:31)
[2020-02-19] MEDS: ATORVASTATIN CALCIUM 40 MG TABLET PO SCH (21:59)
[2020-02-19] MEDS: TEMAZEPAM 7.5 MG CAPSULE PO SCH (21:59)
[2020-02-20] MEDS: OXYCODONE-ACETAMINOPHEN 5-325 MG TABLET PO PRN ×4 (05:08→21:55)
[2020-02-20] MEDS: CLONAZEPAM 1 MG TABLET PO SCH ×3 (05:10→21:57)
[2020-02-20] MEDS: INSULIN LISPRO 100 UNIT/ML 3 ML VIAL SUBCUT SCH ×4 (07:45→21:53)
[2020-02-20] MEDS: METOCLOPRAMIDE HCL 10 MG TABLET PO SCH ×4 (07:46→21:56)
[2020-02-20] MEDS: ASPIRIN 81 MG TABLET, CHEWABLE PO SCH (09:16)
[2020-02-20] MEDS: DOCUSATE SODIUM 100 MG CAPSULE PO SCH (09:16)
[2020-02-20] MEDS: FAMOTIDINE 20 MG TABLET PO SCH ×2 (09:16→21:55)
[2020-02-20] MEDS: ENOXAPARIN SODIUM INJ 40 MG/0.4 ML DISP.SYRIN SUBCUT SCH (09:17)
[2020-02-20] MEDS: METOPROLOL SUCCINATE 25 MG TAB.SR.24H PO SCH (09:17)
[2020-02-20] MEDS: FLUCONAZOLE 100 MG TABLET PO SCH (09:17)
[2020-02-20] MEDS: BUSPIRONE HCL 10 MG TABLET PO SCH ×2 (09:17→21:56)
[2020-02-20] MEDS: INSULIN GLARGINE,HUM.REC.ANLOG 1,000 UNIT/10 ML VIAL SUBCUT SCH (09:18)
[2020-02-20] MEDS: NYSTATIN CREAM 15 GM TP SCH ×2 (09:19→17:23)
[2020-02-20] MEDS: LEVOFLOXACIN 500 MG TABLET PO SCH (09:19)
--- NOTE | 2020-02-20 10:21 | PDOC PROGRESS REPORT ---
Subjective Progress Note for:: 02/20/20 Subjective:: LEILANI ALMODOVAR is a 59 year old female with past medical history of uncontrolled hypertension, CAD, CHF, uncontrolled diabetes, anxiety, history of noncompliance, who recently moved from [place] to [place] to be closer to her daughter presenting to the ED complaining of persistent chronic back pain, persistent perineal area rash and uncontrolled blood sugars. Patient is stating that she is unable to care for herself and her daughter does not help her much, she is also stating that she is not able to provide for her medications and she has been noncompliant with her diabetes and hypertension management. In ED was noted to be very hyperglycemic, hyponatremic at dehydrated, will start on volume resuscitation and insulin drip and hospitalist consulted for admission. Patient denies any headache, fever, cough, nausea, chest pain, palpitation, vomiting, abdominal pain, diarrhea, constipation, dysuria, urgency. 02/18/2020. No acute events overnight. Complaining of back pain and groin pain, otherwise denies any fever, chills, nausea, vomiting, diarrhea, constipation or any urinary symptoms. Alert and oriented, cooperative with physical examination. Pending SNF transfer. 02/19/2020. No acute events overnight. Still complaining of back and groin pain. Dysuria is improving. Denies any chest pain, fever, nausea, vomiting, diarrhea, constipation or any urinary symptoms. Pending transfer to SNF. 02/20/2020. No acute events overnight. Patient still complaining of groin and back pain. Otherwise resting in her recliner no apparent distress, denies any fever, chills, nausea, vomiting, diarrhea, constipation or any urinary symptoms. Reason For Visit: UTI,UNCONTROLLED DM Physical Exam Vital Signs: Temp Pulse Resp BP Pulse Ox 98.6 F 79 15 128/55 H 100 02/20/20 08:00 02/20/20 08:00 02/20/20 08:00 02/20/20 08:00 02/20/20 08:00 Intake & Output 02/19/20 02/20/20 02/21/20 06:59 06:59 06:59 Intake Total 2066 770 Output Total 530 Balance 1536 770 Weight 50.5 kg 53.1 kg General appearance: PRESENT: no acute distress, well-developed, well-nourished Head exam: PRESENT: atraumatic, normocephalic Respiratory exam: PRESENT: clear to auscultation leydi. ABSENT: rales, rhonchi, wheezes Cardiovascular exam: PRESENT: RRR. ABSENT: diastolic murmur, rubs, systolic murmur GI/Abdominal exam: PRESENT: normal bowel sounds, soft. ABSENT: distended, guarding, mass, organolmegaly, rebound, tenderness Gentrourinary exam: PRESENT: other - Groin and perineal candidiasis Extremities exam: PRESENT: full ROM. ABSENT: calf tenderness, clubbing, pedal edema Neurological exam: PRESENT: alert, awake, oriented to person, oriented to place, oriented to time, oriented to situation, CN II-XII grossly intact. ABSENT: motor sensory deficit Results Laboratory Results: 02/19/20 05:44 02/19/20 05:44 Impressions: Chest X-Ray 02/17/20 08:01 IMPRESSION: No acute cardiopulmonary process. Assessment and Plan - Diagnosis (1) Diabetes Qualifiers: Diabetes mellitus type: type 2 Diabetes mellitus termite control service representative insulin use: without [facility] use Diabetes mellitus complication status: with hyperglycemia Qualified Code(s): E11.65 - Type 2 diabetes mellitus with hyperglycemia Is this a current diagnosis for this admission?: Yes Plan: History of noncompliance. History of uncontrolled diabetes. Hemoglobin A1c more than 14%. Improving. Continue diabetic education. Continue diabetic diet, basal, sliding scale and prandial insulin. Hypoglycemia protocol. Adjust dosage as needed. (2) Acute kidney injury superimposed on CKD Is this a current diagnosis for this admission?: Yes Plan: History of CKD stage III. Likely due to diabetic complication. Acutely worsened likely due to Bactrim for UTI. DC Bactrim. Avoid nephrotoxic meds. Monitor volume status and electrolytes. Replace as needed. (3) Hyperlipidemia Is this a current diagnosis for this admission?: Yes Plan: ASCVD score of 29%. Continue high intensity statin. Diet and lifestyle modification recommended. Monitor LFTs. Outpatient PCP follow-up. (4) Uncontrolled hypertension Is this a current diagnosis for this admission?: Yes Plan: Optimized. History of noncompliance. Refusing to take lisinopril stating she is allergic to it. We will start on low-dose beta-irasema and adjustments as needed. Monitor vitals. Outpatient PCP follow-up. (5) Candidiasis of perineum Is this a current diagnosis for this admission?: Yes Plan: Moderate improvement. Most likely to severe uncontrolled diabetes. Day 4 p.o. Diflucan. Wound care. Optimize diabetic care. (6) Diabetic neuropathy Qualifiers: Diabetes mellitus type: type 2 Is this a current diagnosis for this admission?: Yes Plan: Due to history of uncontrolled diabetes. Complaining of bilateral lower extremity paresthesias. Optimal diabetic control. Daily foot inspection. Gabapentin. (7) Tobacco abuse Is this a current diagnosis for this admission?: Yes Plan: Counseled on quitting. Nicotine patch. (8) UTI (urinary tract infection) Qualifiers: Urinary tract infection type: acute cystitis Is this a current diagnosis for this admission?: Yes Plan: Due to group B beta Streptococcus. History of E. coli and Klebsiella pneumoniae UTIs pansensitive. Day 4 of antibiotics. Received 1 day of Bactrim. DC Bactrim due to worsening kidney function. Not a candidate for Macrobid due to worsening renal function. Not a candidate beta-lactam due to penicillin allergy. Day 3 p.o. levofloxacin. (9) Noncompliance Is this a current diagnosis for this admission?: Yes Plan: Advised on compliance. Patient would benefit from placement in a [facility] or assisted living for better management of his multiple underlying chronic disease. Discharge planning consulted. (10) CAD (coronary artery disease) Qualifiers: Coronary Disease-Associated Artery/Lesion type: [place] artery Is this a current diagnosis for this admission?: Yes Plan: History of CAD. Status post 4 stent placement. Denies any chest pain. No acute EKG changes. Troponins negative. Resume home meds. Outpatient PCP and cardiology follow-up. (11) Hyperosmolar non-ketotic state in patient with type 2 diabetes mellitus Is this a current diagnosis for this admission?: Yes Plan: Resolved. Due to noncompliance. Presented with blood glucose level of 550. Admited to telemetry, start on insulin drip and transition to subcutaneous insulin once blood glucose levels were in acceptable range. Diabetic diet, diabetic education, sliding scale, prandial and basal insulin. Hypoglycemic protocol.
[2020-02-20 11:57] LABS: APPEARANCE,URINE CLEAR; BILIRUBIN,URINE NEGATIVE (NEGATIVE); COLOR,URINE STRAW; GLUCOSE, URINE >=500 mg/dL (NEGATIVE); KETONES,URINE NEGATIVE (NEGATIVE); PROTEIN,URINE 100 mg/dL (NEGATIVE); URINE SPECIFIC GRAVITY 1.012; UROBILINOGEN,URINE NEGATIVE mg/dL (<2.0)
[2020-02-20] MEDS ORDERED: NYSTATIN CREAM 15 GM ONE (19:51)
[2020-02-20] MEDS: ATORVASTATIN CALCIUM 40 MG TABLET PO SCH (21:55)
[2020-02-20] MEDS: TEMAZEPAM 7.5 MG CAPSULE PO SCH (21:56)
[2020-02-21] MEDS: OXYCODONE-ACETAMINOPHEN 5-325 MG TABLET PO PRN ×6 (02:34→22:58)
[2020-02-21] MEDS: CLONAZEPAM 1 MG TABLET PO SCH ×3 (06:37→22:56)
[2020-02-21] MEDS: INSULIN LISPRO 100 UNIT/ML 3 ML VIAL SUBCUT SCH ×7 (08:17→22:57)
[2020-02-21] MEDS: METOCLOPRAMIDE HCL 10 MG TABLET PO SCH ×4 (08:17→22:54)
[2020-02-21 08:31] LABS: ANION GAP 7 (5-19); BLOOD UREA NITROGEN 52 mg/dL (7-20); CALCIUM 8.9 mg/dL (8.4-10.2); CARBON DIOXIDE 22 mmol/L (22-30); CHLORIDE 103 mmol/L (98-107); GLUCOSE 277 mg/dL (75-110); POTASSIUM 5.3 mmol/L (3.6-5.0)
[2020-02-21] MEDS: METOPROLOL SUCCINATE 25 MG TAB.SR.24H PO SCH (09:13)
[2020-02-21] MEDS: DOCUSATE SODIUM 100 MG CAPSULE PO SCH (09:13)
[2020-02-21] MEDS: FLUCONAZOLE 100 MG TABLET PO SCH (09:13)
[2020-02-21] MEDS: ASPIRIN 81 MG TABLET, CHEWABLE PO SCH (09:13)
[2020-02-21] MEDS: BUSPIRONE HCL 10 MG TABLET PO SCH ×2 (09:13→22:55)
[2020-02-21] MEDS: LEVOFLOXACIN 500 MG TABLET PO SCH (09:13)
[2020-02-21] MEDS: FAMOTIDINE 20 MG TABLET PO SCH ×2 (09:14→22:55)
[2020-02-21] MEDS: ENOXAPARIN SODIUM INJ 40 MG/0.4 ML DISP.SYRIN SUBCUT SCH (09:14)
[2020-02-21] MEDS: NYSTATIN CREAM 15 GM TP SCH ×2 (09:15→17:30)
[2020-02-21] MEDS: INSULIN GLARGINE,HUM.REC.ANLOG 1,000 UNIT/10 ML VIAL SUBCUT SCH (09:15)
--- NOTE | 2020-02-21 09:59 | PDOC PROGRESS REPORT ---
Subjective Progress Note for:: 02/21/20 Subjective:: LEILANI ALMODOVAR is a 59 year old female with past medical history of uncontrolled hypertension, CAD, CHF, uncontrolled diabetes, anxiety, history of noncompliance, who recently moved from [place] to [place] to be closer to her daughter presenting to the ED complaining of persistent chronic back pain, persistent perineal area rash and uncontrolled blood sugars. Patient is stating that she is unable to care for herself and her daughter does not help her much, she is also stating that she is not able to provide for her medications and she has been noncompliant with her diabetes and hypertension management. In ED was noted to be very hyperglycemic, hyponatremic at dehydrated, will start on volume resuscitation and insulin drip and hospitalist consulted for admission. Patient denies any headache, fever, cough, nausea, chest pain, palpitation, vomiting, abdominal pain, diarrhea, constipation, dysuria, urgency. 02/18/2020. No acute events overnight. Complaining of back pain and groin pain, otherwise denies any fever, chills, nausea, vomiting, diarrhea, constipation or any urinary symptoms. Alert and oriented, cooperative with physical examination. Pending SNF transfer. 02/19/2020. No acute events overnight. Still complaining of back and groin pain. Dysuria is improving. Denies any chest pain, fever, nausea, vomiting, diarrhea, constipation or any urinary symptoms. Pending transfer to SNF. 02/20/2020. No acute events overnight. Patient still complaining of groin and back pain. Otherwise resting in her recliner no apparent distress, denies any fever, chills, nausea, vomiting, diarrhea, constipation or any urinary symptoms. 02/21/2020. No acute events overnight. Comfortably resting in bed no apparent distress, still complaining of back pain and groin pain but reports improvement of her symptoms compared to yesterday, ambulatory, having normal bowel and bladder movements, denies any fever, chills, nausea, vomiting, diarrhea, constipation or any urinary symptoms. Pending transfer to SNF. Reason For Visit: UTI,UNCONTROLLED DM Physical Exam Vital Signs: Temp Pulse Resp BP Pulse Ox 98.4 F 79 17 150/81 H 99 02/21/20 08:00 02/21/20 08:00 02/21/20 08:00 02/21/20 08:00 02/21/20 08:00 Intake & Output 02/20/20 02/21/20 02/22/20 06:59 06:59 06:59 Intake Total 770 1060 Output Total 900 Balance 770 160 Weight 53.1 kg 83 kg General appearance: PRESENT: no acute distress, well-developed, well-nourished Head exam: PRESENT: atraumatic, normocephalic Respiratory exam: PRESENT: clear to auscultation leydi. ABSENT: rales, rhonchi, wheezes GI/Abdominal exam: PRESENT: normal bowel sounds, soft. ABSENT: distended, guarding, mass, organolmegaly, rebound, tenderness Gentrourinary exam: PRESENT: other - Candidiasis of groin and perineum. Neurological exam: PRESENT: alert, awake, oriented to person, oriented to place, oriented to time, oriented to situation, CN II-XII grossly intact. ABSENT: motor sensory deficit Results Laboratory Results: 02/19/20 05:44 02/21/20 07:16 02/20/20 02/21/20 11:30 07:16 Sodium 132.0 L Potassium 5.3 H Chloride 103 Carbon Dioxide 22 Anion Gap 7 BUN 52 H Creatinine 1.40 H Est GFR ( Amer) 47 L Glucose 277 H Calcium 8.9 Urine Color STRAW Urine Appearance CLEAR Urine pH 6.0 Ur Specific [place] 1.012 Urine Protein 100 H Urine Glucose (UA) >=500 H Urine Ketones NEGATIVE Urine Blood NEGATIVE Urine RBC (Auto) 2 Impressions: Chest X-Ray 02/17/20 08:01 IMPRESSION: No acute cardiopulmonary process. Assessment and Plan - Diagnosis (1) Diabetes Qualifiers: Diabetes mellitus type: type 2 Diabetes mellitus senior living insulin use: without senior living use Diabetes mellitus complication status: with hyperglycemia Qualified Code(s): E11.65 - Type 2 diabetes mellitus with hyperglycemia Is this a current diagnosis for this admission?: Yes Plan: History of noncompliance. History of uncontrolled diabetes. Hemoglobin A1c more than 14%. Improving. Continue diabetic education. Continue diabetic diet, basal, sliding scale and prandial insulin. Hypoglycemia protocol. Adjust dosage as needed. (2) UTI (urinary tract infection) Qualifiers: Urinary tract infection type: acute cystitis Is this a current diagnosis for this admission?: Yes Plan: Still complaining of dysuria. Repeat UA positive for leukocyte esterase. We will start ceftriaxone while closely monitoring for any allergic reactions. Due to group B beta Streptococcus. History of E. coli and Klebsiella pneumoniae UTIs pansensitive. Day 5 of antibiotics. Day 1 IV ceftriaxone. Received 1 day of Bactrim. DC Bactrim due to worsening kidney function. Received 3 days of levofloxacin. Not a candidate for Macrobid due to worsening renal function. Not a candidate beta-lactam due to penicillin allergy. (3) Acute kidney injury superimposed on CKD Is this a current diagnosis for this admission?: Yes Plan: History of CKD stage III. Likely due to diabetic complication. Acutely worsened likely due to Bactrim for UTI. DC Bactrim. Avoid nephrotoxic meds. Monitor volume status and electrolytes. Replace as needed. (4) Hyperlipidemia Is this a current diagnosis for this admission?: Yes Plan: ASCVD score of 29%. Continue high intensity statin. Diet and lifestyle modification recommended. Monitor LFTs. Outpatient PCP follow-up. (5) Uncontrolled hypertension Is this a current diagnosis for this admission?: Yes Plan: Optimized. History of noncompliance. Refusing to take lisinopril stating she is allergic to it. We will start on low-dose beta-irasema and adjustments as needed. Monitor vitals. Outpatient PCP follow-up. (6) Candidiasis of perineum Is this a current diagnosis for this admission?: Yes Plan: Moderate improvement. Most likely to severe uncontrolled diabetes. Day 5 p.o. Diflucan. Wound care. Optimize diabetic care. (7) Diabetic neuropathy Qualifiers: Diabetes mellitus type: type 2 Is this a current diagnosis for this admission?: Yes Plan: Due to history of uncontrolled diabetes. Complaining of bilateral lower extremity paresthesias. Optimal diabetic control. Daily foot inspection. Gabapentin. (8) Tobacco abuse Is this a current diagnosis for this admission?: Yes Plan: Counseled on quitting. Nicotine patch. (9) CAD (coronary artery disease) Qualifiers: Coronary Disease-Associated Artery/Lesion type: [place] artery Is this a current diagnosis for this admission?: Yes (10) Hyperosmolar non-ketotic state in patient with type 2 diabetes mellitus Is this a current diagnosis for this admission?: Yes (11) Noncompliance Is this a current diagnosis for this admission?: Yes Plan: Advised on compliance. Patient would benefit from placement in a [facility] or assisted living for better management of his multiple underlying chronic disease. Discharge planning consulted.
[2020-02-21] MEDS ORDERED: CEFOXITIN 1 GM/D5W RTU 1 GM/50 ML RTUPB IV SCH (10:00)
[2020-02-21] MEDS ORDERED: INSULIN GLARGINE,HUM.REC.ANLOG 1,000 UNIT/10 ML VIAL SUBCUT SCH ×2 (10:00)
[2020-02-21] MEDS ORDERED: SODIUM POLYSTYRENE SULFONATE 15 GM/60 ML PO ONE (10:30)
[2020-02-21] MEDS: CEFTRIAXONE 1 GM/D5W RTU 1 GM/50 ML RTUPB IV SCH (10:52)
[2020-02-21] MEDS: ATORVASTATIN CALCIUM 40 MG TABLET PO SCH (22:54)
[2020-02-21] MEDS: TEMAZEPAM 7.5 MG CAPSULE PO SCH (22:55)
[2020-02-22] MEDS: OXYCODONE-ACETAMINOPHEN 5-325 MG TABLET PO PRN ×2 (03:25→07:46)
[2020-02-22] MEDS: CLONAZEPAM 1 MG TABLET PO SCH (05:53)
[2020-02-22] MEDS: INSULIN LISPRO 100 UNIT/ML 3 ML VIAL SUBCUT SCH ×7 (07:44→23:28)
[2020-02-22] MEDS: METOCLOPRAMIDE HCL 10 MG TABLET PO SCH ×5 (07:50→23:30)
[2020-02-22] MEDS ORDERED: NORMAL SALINE 1000 ML 1,000 ML IV ONE ×2 (08:26→11:03)
[2020-02-22] MEDS ORDERED: OXYCODONE-ACETAMINOPHEN 5-325 MG TABLET PO PRN (08:29)
[2020-02-22] MEDS: FLUCONAZOLE 100 MG TABLET PO SCH (09:08)
[2020-02-22] MEDS: BUSPIRONE HCL 10 MG TABLET PO SCH ×3 (09:08→23:30)
[2020-02-22] MEDS: DOCUSATE SODIUM 100 MG CAPSULE PO SCH (09:08)
[2020-02-22] MEDS: ASPIRIN 81 MG TABLET, CHEWABLE PO SCH (09:08)
[2020-02-22] MEDS: NYSTATIN CREAM 15 GM TP SCH ×2 (09:09→17:41)
[2020-02-22] MEDS: INSULIN GLARGINE,HUM.REC.ANLOG 1,000 UNIT/10 ML VIAL SUBCUT SCH (09:09)
[2020-02-22] MEDS: ENOXAPARIN SODIUM INJ 40 MG/0.4 ML DISP.SYRIN SUBCUT SCH (09:09)
[2020-02-22] MEDS: FAMOTIDINE 20 MG TABLET PO SCH ×3 (09:09→23:30)
[2020-02-22] MEDS: CEFTRIAXONE 1 GM/D5W RTU 1 GM/50 ML RTUPB IV SCH (09:09)
[2020-02-22 09:37] LABS: BLOOD UREA NITROGEN 49 mg/dL (7-20); CALCIUM 8.3 mg/dL (8.4-10.2); GLUCOSE 159 mg/dL (75-110)
[2020-02-22 09:38] LABS: ANION GAP 5 (5-19); CARBON DIOXIDE 25 mmol/L (22-30); CHLORIDE 106 mmol/L (98-107); POTASSIUM 4.3 mmol/L (3.6-5.0)
[2020-02-22] MEDS ORDERED: METOPROLOL SUCCINATE 25 MG TAB.SR.24H PO SCH (10:00)
[2020-02-22] MEDS ORDERED: NORMAL SALINE 1000 ML 1,000 ML IV PRN (11:03)
[2020-02-22] MEDS ORDERED: CLONAZEPAM 1 MG TABLET PO SCH (14:00)
[2020-02-22] MEDS ORDERED: PROMETHAZINE HCL INJ 25 MG/1 ML VIAL IV PRN (14:30)
--- NOTE | 2020-02-22 18:08 | PDOC PROGRESS REPORT ---
Subjective Progress Note for:: 02/22/20 Subjective:: LEILANI ALMODOVAR is a 59 year old female with past medical history of uncontrolled hypertension, CAD, CHF, uncontrolled diabetes, anxiety, history of noncompliance, who recently moved from [place] to [place] to be closer to her daughter; admitted 02/17/20 for [facility]. Patient was seen on morning rounds and again this afternoon at request of nursing. This morning, patient was found resting in bed, comfortably, on room air. She was A&O x4. She reports chronic back pain and is frustrated by her current pain medication regiment. She tells me that the nurses are "lying" about having provided her medications; alleges that they are "scanning the medication and then keeping the Percocet for themselves." When directly confronted, the patient maintains that she has witnessed multiple nurses doing so. She tells me that she is prescribed clonazepam 1 mg every 8 hours and Percocet every 4 hours. Review of the [place] controlled substance database shows that she has not been prescribed clonazepam since her move to [place] (September 2019) and has only received intermittent/short supply of narcotics from the ER providers. Informed the patient that we would continue to provide for her chronic pain medication needs, however, the primary concern today was her acute kidney injury. Advised that the patient needed to increase her p.o. fluid intake and that I was recommending IV fluids. Patient is agreeable; states that she is very thirsty and will drink as much water as possible. She does confirm her interest in discharging to [facility]; alleges that she is not treated well at home. This afternoon, I was called by nursing with report of multiple occurrences of the patient refusing all medications and interventions except for the narcotic and benzodiazepines mentioned above. She has declined the IV fluids three separate times today. She has become belligerent with the nursing staff and continues to accuse them of "pocketing" her medications. Nursing is now requiring witnesses with every interaction with the patient. On follow-up with the patient, she remains agitated; states that we are "holding [her] hostage" by causing her chronic pain to go untreated. She tells me that there is nothing wrong with her kidneys and that this was not discussed at my prior visit. She quickly becomes belligerent and colorfully demands that I leave. This evening, nursing reports that patient is now refusing vital signs, Accu- Cheks, and insulin administration. Of note, patient was admitted for uncontrolled diabetes mellitus with hyperosmolar nonketotic hyperglycemia. Reason For Visit: UTI,UNCONTROLLED DM Physical Exam Vital Signs: Temp Pulse Resp BP Pulse Ox 99.6 F 79 12 134/69 H 99 02/22/20 11:16 02/22/20 11:16 02/22/20 11:16 02/22/20 11:16 02/22/20 11:16 Intake & Output 02/21/20 02/22/20 02/23/20 06:59 06:59 06:59 Intake Total 1060 1150 Output Total 900 Balance 160 1150 Weight 83 kg 53.2 kg General appearance: PRESENT: no acute distress, disheveled, well-developed, well-nourished Head exam: PRESENT: atraumatic, normocephalic Mouth exam: PRESENT: moist, tongue midline Teeth exam: PRESENT: dental caries, poor dentation Respiratory exam: PRESENT: clear to auscultation leydi, other - room air. ABSENT: rales, rhonchi, wheezes Cardiovascular exam: PRESENT: RRR. ABSENT: diastolic murmur, rubs, systolic murmur Gentrourinary exam: PRESENT: erythema - intense perineal erythema/rash. ABSENT: indwelling catheter Musculoskeletal exam: PRESENT: ambulatory Neurological exam: PRESENT: alert, awake, oriented to person, oriented to place, oriented to time, oriented to situation, CN II-XII grossly intact. ABSENT: motor sensory deficit Psychiatric exam: PRESENT: agitated. ABSENT: homicidal ideation, suicidal ideation Skin exam: PRESENT: dry, warm. ABSENT: cyanosis, rash Results Laboratory Results: 02/19/20 05:44 02/22/20 09:02 02/22/20 09:02 Sodium 135.7 L Potassium 4.3 Chloride 106 Carbon Dioxide 25 Anion Gap 5 BUN 49 H Creatinine 1.42 H Est GFR ( Amer) 46 L Glucose 159 H Calcium 8.3 L 02/20/20 11:30 Clean Catch Midstream Urine Culture - Final Lactobacillus (Vaginal Silvia) Impressions: Chest X-Ray 02/17/20 08:01 IMPRESSION: No acute cardiopulmonary process. Assessment and Plan - Diagnosis (1) Noncompliance Is this a current diagnosis for this admission?: Yes Plan: Multiple discussions had today with patient regarding noncompliance. Patient was advised of the importance of treating her acute on chronic medical conditions appropriately to prevent deteriorating status and ensure that she is stable for discharge to [facility]. Did discuss that continued noncompliance may result in rejection from [facility] facilities. Patient advocate consulted. Mental health evaluation requested as the patient's noncompliance and self- neglect will have severe consequences (including her current admission for [facility]). (2) Acute kidney injury superimposed on CKD Is this a current diagnosis for this admission?: Yes Plan: Cr 1.42; baseline Cr ~1.2 History of CKD stage III. Likely due to diabetic complication. Acutely worsened; possibly due to Bactrim for UTI. DC Bactrim. Avoid nephrotoxic meds. IVF bolus followed by maintenance fluids. Encourage p.o. fluids. Monitor volume status and electrolytes. Follow-up chemistry. (3) CAD (coronary artery disease) Qualifiers: Coronary Disease-Associated Artery/Lesion type: [place] artery Is this a current diagnosis for this admission?: Yes Plan: History of CAD. Status post 4 stent placement. Denies any chest pain. No acute EKG changes. Troponins negative. Resume home meds. Outpatient PCP and cardiology follow-up. (4) Hyperlipidemia Is this a current diagnosis for this admission?: Yes Plan: ASCVD score of 29%. Continue high intensity statin. Diet and lifestyle modification recommended. Monitor LFTs. Outpatient PCP follow-up. (5) Candidiasis of perineum Is this a current diagnosis for this admission?: Yes Plan: Moderate improvement. Most likely to severe uncontrolled diabetes. Received Diflucan x5 days Wound care. Continue Nystatin cream Optimize diabetic care. 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 History of uncontrolled diabetes. Hemoglobin A1c more than 14%. Continue diabetic diet, basal, sliding scale and prandial insulin. Diabetic education; fraternity house cook and patient educator are consulted. Hypoglycemia protocol. Adjust dosage as needed. (7) Diabetic neuropathy Qualifiers: Diabetes mellitus type: type 2 Is this a current diagnosis for this admission?: Yes Plan: Due to history of uncontrolled diabetes. Complaining of bilateral lower extremity paresthesias. Optimal diabetic control. Daily foot inspection. (8) UTI (urinary tract infection) Qualifiers: Urinary tract infection type: acute cystitis Is this a current diagnosis for this admission?: Yes Plan: Still complaining of dysuria. Repeat UA positive for leukocyte esterase. We will start ceftriaxone while closely monitoring for any allergic reactions. Due to group B beta Streptococcus. History of E. coli and Klebsiella pneumoniae UTIs pansensitive. Day 5 of antibiotics. Day 2 IV ceftriaxone; last dose tomorrow. Received 1 day of Bactrim. DC Bactrim due to worsening kidney function. Received 3 days of levofloxacin. Not a candidate for Macrobid due to worsening renal function. Not a candidate beta-lactam due to penicillin allergy. (9) Uncontrolled hypertension Is this a current diagnosis for this admission?: Yes Plan: Optimized. History of noncompliance. Refusing to take lisinopril stating she is allergic to it. We will start on low-dose beta-irasema and adjustments as needed. Monitor vitals. Outpatient PCP follow-up. (10) Hyperosmolar non-ketotic state in patient with type 2 diabetes mellitus Is this a current diagnosis for this admission?: Yes Plan: Resolved. Due to noncompliance. Presented with blood glucose level of 550. Admited to telemetry, initially on insulin drip and transitioned to subcutaneous insulin once blood glucose levels were in acceptable range. Diabetic diet, diabetic education, sliding scale, prandial and basal insulin. H ypoglycemic protocol. - Time Time Spent with patient: 35 or more minutes Medications reviewed and adjusted accordingly: Yes Anticipated discharge: Home Within: within 48 hours
[2020-02-22] MEDS: ATORVASTATIN CALCIUM 40 MG TABLET PO SCH ×2 (23:25→23:30)
[2020-02-22] MEDS: PHARMACY COMMUNICATION ORDER MC SCH (23:26)
[2020-02-23] MEDS: INSULIN LISPRO 100 UNIT/ML 3 ML VIAL SUBCUT SCH ×6 (08:06→16:09)
[2020-02-23] MEDS: METOCLOPRAMIDE HCL 10 MG TABLET PO SCH ×3 (08:07→16:08)
[2020-02-23] MEDS: BUSPIRONE HCL 10 MG TABLET PO SCH (09:37)
[2020-02-23] MEDS: DOCUSATE SODIUM 100 MG CAPSULE PO SCH (09:37)
[2020-02-23] MEDS: ASPIRIN 81 MG TABLET, CHEWABLE PO SCH (09:37)
[2020-02-23] MEDS: CEFTRIAXONE 1 GM/D5W RTU 1 GM/50 ML RTUPB IV SCH (09:38)
[2020-02-23] MEDS: ENOXAPARIN SODIUM INJ 40 MG/0.4 ML DISP.SYRIN SUBCUT SCH (09:38)
[2020-02-23] MEDS: NYSTATIN CREAM 15 GM TP SCH (09:38)
[2020-02-23] MEDS: METOPROLOL SUCCINATE 50 MG TAB.SR.24H PO SCH (09:38)
[2020-02-23] MEDS: FAMOTIDINE 20 MG TABLET PO SCH (09:38)
[2020-02-23] MEDS: LIDOCAINE 5% (700 MG) TRANSDERMAL ADH..PATCH TP SCH (09:38)
[2020-02-23] MEDS: INSULIN GLARGINE,HUM.REC.ANLOG 1,000 UNIT/10 ML VIAL SUBCUT SCH ×2 (09:38→12:32)
[2020-02-23] MEDS ORDERED: IBUPROFEN 600 MG TABLET PO PRN (11:10)
[2020-02-23] MEDS: HYDROXYZINE PAMOATE 25 MG CAPSULE PO PRN (16:08)
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
[2020-02-24] MEDS: NYSTATIN CREAM 15 GM TP SCH ×2 (00:06→11:02)
[2020-02-24] MEDS: CEFUROXIME 250 MG TABLET PO SCH ×3 (00:07→17:30)
[2020-02-24] MEDS: BUSPIRONE HCL 10 MG TABLET PO SCH ×2 (00:07→11:02)
[2020-02-24] MEDS: INSULIN LISPRO 100 UNIT/ML 3 ML VIAL SUBCUT SCH ×7 (00:07→17:31)
[2020-02-24] MEDS: ATORVASTATIN CALCIUM 40 MG TABLET PO SCH (00:09)
[2020-02-24] MEDS: GABAPENTIN 100 MG CAPSULE PO SCH ×3 (00:09→14:10)
[2020-02-24] MEDS: METOCLOPRAMIDE HCL 10 MG TABLET PO SCH ×4 (00:09→17:30)
[2020-02-24] MEDS: PHARMACY COMMUNICATION ORDER MC SCH (00:09)
[2020-02-24] MEDS: FAMOTIDINE 20 MG TABLET PO SCH ×2 (00:09→11:03)
[2020-02-24] MEDS: HYDROXYZINE PAMOATE 25 MG CAPSULE PO PRN (03:44)
[2020-02-24] MEDS ORDERED: INSULIN GLARGINE,HUM.REC.ANLOG 1,000 UNIT/10 ML VIAL SUBCUT SCH (10:00)
[2020-02-24] MEDS: LIDOCAINE 5% (700 MG) TRANSDERMAL ADH..PATCH TP SCH (11:02)
[2020-02-24] MEDS: ENOXAPARIN SODIUM INJ 40 MG/0.4 ML DISP.SYRIN SUBCUT SCH (11:02)
[2020-02-24] MEDS: DOCUSATE SODIUM 100 MG CAPSULE PO SCH (11:02)
[2020-02-24] MEDS: ASPIRIN 81 MG TABLET, CHEWABLE PO SCH (11:02)
[2020-02-24] MEDS: METOPROLOL SUCCINATE 50 MG TAB.SR.24H PO SCH (11:03)
[2020-02-24 12:06] VITALS: BP 130/78
[2020-02-24] MEDS ORDERED: INSULIN LISPRO 100 UNIT/ML 3 ML VIAL ONE (17:24)
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
== END 2020-02-24 17:42 | disposition home or self-care (01) | DRG 638 ==
LOC: ER 06:11 → EEVIPCON 09:42 → EH 09:42 → 4S 11:53
PROVIDERS: ADMIT Internal Medicine; ATTEND Registered Nurse
DX: E11.00 Type 2 diabetes mellitus with hyperosmolarity without nonketotic hyperglycemic-hyperosmolar coma (NKHHC) (principal); E87.1 Hypo-osmolality and hyponatremia; N39.0 Urinary tract infection, site not specified; I13.0 Hypertensive heart and chronic kidney disease with heart failure and stage 1 through stage 4 chronic kidney disease, or unspecified chronic kidney disease; J44.9 Chronic obstructive pulmonary disease, unspecified; F31.9 Bipolar disorder, unspecified; M19.90 Unspecified osteoarthritis, unspecified site; I50.9 Heart failure, unspecified; I25.10 Atherosclerotic heart disease of native coronary artery without angina pectoris; E78.5 Hyperlipidemia, unspecified; E11.40 Type 2 diabetes mellitus with diabetic neuropathy, unspecified; B37.2 Candidiasis of skin and nail; B95.1 Streptococcus, group B, as the cause of diseases classified elsewhere; F17.200 Nicotine dependence, unspecified, uncomplicated; N18.9 Chronic kidney disease, unspecified; G89.29 Other chronic pain; F41.9 Anxiety disorder, unspecified; M54.9 Dorsalgia, unspecified; E86.0 Dehydration; Z79.4 Long term (current) use of insulin; Z91.14 Patient's other noncompliance with medication regimen; Z20.828 Contact with and (suspected) exposure to other viral communicable diseases; Z91.010 Allergy to peanuts; Z79.82 Long term (current) use of aspirin; Z88.0 Allergy status to penicillin; Z79.899 Other long term (current) drug therapy; Z88.8 Allergy status to other drugs, medicaments and biological substances; Z95.5 Presence of coronary angioplasty implant and graft
CPT/HCPCS: 36415; 71045; 80048; 80053; 80061; 81001; 82803; 82962; 83036; 83605; 83735; 84443; 85025; 87086; 87088; 87635; 96360; 96361; 99291; C9803; J0696; J1650; J1815; J2550; J3490; J7030

== ENCOUNTER 2020-02-24 19:46 | Emergency (ER) | payer MEDICAID ==
--- NOTE | 2020-02-24 20:56 | ER Document Report ---
ED Medical Screen (RME) - General Chief Complaint: Fall Stated Complaint: FALL Time Seen by Provider: 02/24/20 20:48 Notes: Patient is a 59-year-old female who presents to the emergency department with back pain after a fall. Patient was just discharged from the hospital for a urinary tract infection and acute kidney injury. Patient is also diabetic. Patient states that she was walking back [facility] the [facility] and ended up falling. Also has complaints of bilateral flank pain. Exam: Left CVA tenderness. I have greeted and performed a rapid initial assessment of this patient. A comprehensive ED assessment and evaluation of the patient, analysis of test results and completion of medical decision making process will be conducted by an additional ED providers. TRAVEL OUTSIDE OF THE [place] IN LAST 30 DAYS: No - Related Data Allergies/Adverse Reactions: peanut Allergy (Verified 02/24/20 20:47) Penicillins Allergy (Verified 02/24/20 20:47) pregabalin [From Lyrica] Allergy (Verified 02/24/20 20:47) fentanyl Adverse Reaction (Verified 02/24/20 20:47) ketorolac [From Toradol] Adverse Reaction (Verified 02/24/20 20:47) Home Medications: ANTIBIOTICS Past Medical History - Social History Frequency of alcohol use: None Drug Abuse: None - Past Medical History Cardiac Medical History: Reports: Hx Congestive Heart Failure, Hx Hypercholesterolemia, Hx Hypertension Pulmonary Medical History: Reports: Hx COPD Endocrine Medical History: Reports: Hx Diabetes Mellitus Type 2 Musculoskeltal Medical History: Reports Hx Arthritis Psychiatric Medical History: Reports: Hx Depression Past Surgical History: Reports: Hx Section, Hx Hysterectomy, Hx Orthopedic Surgery - R foot bone biopsy Physical Exam - Vital signs Vitals: Temp Pulse Resp BP Pulse Ox 99.1 F 94 20 127/64 H 97 02/24/20 20:32 02/24/20 20:32 02/24/20 20:32 02/24/20 20:32 02/24/20 20:32 Course - Vital Signs Vital signs: Temp Pulse Resp BP Pulse Ox 79.9 F L 94 20 127/64 H 97 02/24/20 20:47 02/24/20 20:32 02/24/20 20:32 02/24/20 20:32 02/24/20 20:32
[2020-02-24 23:26] LABS: ABSOLUTE BASOPHILS # (AUTO) 0.1 10^3/uL (0.0-0.2); ABSOLUTE EOSINOPHILS # (AUTO) 0.2 10^3/uL (0.0-0.6); ABSOLUTE LYMPHOCYTES (AUTO) 3.7 10^3/uL (0.5-4.7); ABSOLUTE MONOCYTES (AUTO) 1.4 10^3/uL (0.1-1.4); ABSOLUTE NEUT (AUTO) 8.5 10^3/uL (1.7-8.2); BASOPHILS % (AUTO) 0.4 % (0-2); EOSINOPHILS % (AUTO) 1.3 % (0-6); HEMATOCRIT 34.9 % (36.0-47.0); HEMOGLOBIN 11.8 g/dL (12.0-15.5); LYMPHOCYTES % (AUTO) 26.7 % (13-45); MEAN CORPUSCULAR HEMOGLOBIN 30.3 pg (27.0-33.4); MEAN CORPUSCULAR VOLUME 89 fl (80-97); MONOCYTES % (AUTO) 10.1 % (3-13); PLATELET COUNT 303 10^3/uL (150-450); RED BLOOD COUNT 3.91 10^6/uL (3.72-5.28); RED CELL DISTRIBUTION WIDTH 13.6 % (11.5-14.0); SEGMENTED NEUTROPHILS % (AUTO) 61.5 % (42-78); TOTAL CELLS COUNTED % (AUTO) 100 %; WHITE BLOOD COUNT 13.8 10^3/uL (4.0-10.5)
[2020-02-24 23:57] LABS: ALBUMIN 3.4 g/dL (3.5-5.0); ALKALINE PHOSPHATASE 149 U/L (38-126); ANION GAP 5 (5-19); ASPARTATE AMINO TRANSFERASE 27 U/L (14-36); BILIRUBIN,TOTAL 0.3 mg/dL (0.2-1.3); BLOOD UREA NITROGEN 41 mg/dL (7-20); CALCIUM 9.5 mg/dL (8.4-10.2); CARBON DIOXIDE 28 mmol/L (22-30); CHLORIDE 101 mmol/L (98-107); GLUCOSE 327 mg/dL (75-110); POTASSIUM 4.7 mmol/L (3.6-5.0); TOTAL PROTEIN 6.7 g/dL (6.3-8.2)
--- NOTE | 2020-02-25 01:28 | ER Document Report ---
ED General - General Chief Complaint: Fall Stated Complaint: FALL Time Seen by Provider: 02/24/20 20:48 Notes: 59-year-old female presents emergency department stating that she left the hospital and was heading to the women's assisted when she tripped and fell from standing position. Now complains of right leg pain, abdominal pain, back pain and rib pain. States that she is having difficulty walking secondary to pain. Denies any nausea, vomiting, diarrhea, numbness, tingling or taking any blood thinners. States she has not yet filled her medications that she was prescribed after she was discharged from the hospital today. Denies any change in her symptoms since discharge from the hospital regarding her UTI. Admits incontinence at baseline, denies any change in this. TRAVEL OUTSIDE OF THE [place] IN LAST 30 DAYS: No - Related Data Allergies/Adverse Reactions: peanut Allergy (Verified 02/24/20 20:47) Penicillins Allergy (Verified 02/24/20 20:47) pregabalin [From Lyrica] Allergy (Verified 02/24/20 20:47) fentanyl Adverse Reaction (Verified 02/24/20 20:47) ketorolac [From Toradol] Adverse Reaction (Verified 02/24/20 20:47) Home Medications: ANTIBIOTICS Past Medical History - General Information source: Patient - Social History Smoking Status: Current Every Day Smoker Frequency of alcohol use: None Drug Abuse: None Family History: Reviewed & Not Pertinent Patient has homicidal ideation: No - Past Medical History Cardiac Medical History: Reports: Hx Congestive Heart Failure, Hx Hypercholesterolemia, Hx Hypertension Pulmonary Medical History: Reports: Hx COPD Endocrine Medical History: Reports: Hx Diabetes Mellitus Type 2 Musculoskeletal Medical History: Reports Hx Arthritis Psychiatric Medical History: Reports: Hx Depression Past Surgical History: Reports: Hx Section, Hx Cholecystectomy, Hx Hysterectomy, Hx Orthopedic Surgery - R foot bone biopsy Review of Systems - Review of Systems Constitutional: No symptoms reported EENT: No symptoms reported Cardiovascular: See HPI, Chest pain - Complains of rib pain after the fall. Respiratory: No symptoms reported. denies: Cough, Hurts to breathe, Short of breath Gastrointestinal: See HPI, Abdominal pain - Complains of abdominal pain after her fall.. denies: Diarrhea, Nausea, Vomiting Genitourinary: See HPI, Incontinence - Baseline. Musculoskeletal: See HPI, Back pain, Other - Leg pain. Skin: See HPI - Skin abrasions. -: Yes All other systems reviewed and negative Physical Exam - Vital signs Vitals: Temp Pulse Resp BP Pulse Ox 99.1 F 94 20 127/64 H 97 02/24/20 20:32 02/24/20 20:32 02/24/20 20:32 02/24/20 20:32 02/24/20 20:32 Interpretation: Normal - Notes Notes: GENERAL: Alert, interacts well. No acute distress. HEAD: Normocephalic, atraumatic EYES: Pupils equal, round and reactive to light, extraocular movements intact. ENT: Oral mucosa moist, tongue midline. NECK: Full range of motion, supple, trachea midline. LUNGS: Clear to auscultation bilaterally, no wheezes, rales or rhonchi, no respiratory distress. HEART: Regular rate and rhythm, no murmurs, gallops, rubs. ABDOMEN: Soft, nontender, nondistended, bowel sounds present in all 4 quadrants. EXTREMITIES: Moves all 4 extremities spontaneously, no edema, radial and dorsalis pedis pulses 2/4 bilaterally. No cyanosis. No deformity, no difficulty moving her arms or her legs, 5 out of 5 muscle strength. Negative anterior and posterior drawer test, no ligamentous laxity with varus or valgus pressure. BACK: No signs of trauma, no step-offs or deformities, does complain of pain wi th even gentle pressure to the T4-T5 area. NEUROLOGICAL: Alert and oriented x3, normal speech. PSYCH: Normal mood, normal affect. SKIN: warm, superficial abrasions to the bilateral knees, actually appear a few days old, no active bleeding, small ecchymosis on the right side of the abdomen just superior to the umbilicus, nontender to palpation, also appears a few days old. More consistent with insulin injection site. Intertriginous rash that has been previously documented on multiple occasions consistent with fungal infection, has satellite lesions, no sloughing of the skin, no evidence of secondary bacterial cellulitis. Patient is wearing a diaper, has been incontinent of urine, is lying in urine. Patient is aware that she is lying in urine, she did warn me that she was wet prior to me starting my examination. Course - Re-evaluation Re-evalutation: 02/25/20 01:44 CBC shows leukocytosis at 13.8 which is slightly increased, stable anemia with hemoglobin 11.8, CMP shows fairly chronic renal failure with a BUN of 41, this is somewhat improved from the beginning of her hospitalization, creatinine 1.47 that is unchanged. Glucose is elevated at 327, patient is known to be noncompliant with her insulin. 02/25/20 02:38 Lumbar Spine X-Ray 02/25/20 01:21 IMPRESSION: No evidence of acute displaced fracture of the lumbar spine. Thoracic Spine X-Ray 02/25/20 01:21 IMPRESSION: No evidence of acute displaced fracture of the thoracic spine. Urinalysis unremarkable. Abdomen is completely benign. No indication for CT scan of the abdomen after a fall from a standing position onto flat ground. Patient will be given Lidoderm patch for the pain in her back, discharge to home. I am uncertain why the patient was trying to go to a women's assisted when she apparently has a house where she lives with her daughter. - Vital Signs Vital signs: Temp Pulse Resp BP Pulse Ox 79.9 F L 94 20 127/64 H 97 02/24/20 20:47 02/24/20 20:32 02/24/20 20:32 02/24/20 20:32 02/24/20 20:32 - Laboratory Result Diagrams: 02/24/20 23:11 02/24/20 23:11 Laboratory results interpreted by me: 02/24/20 02/24/20 02/25/20 23:11 23:11 01:30 WBC 13.8 H Hgb 11.8 L Hct 34.9 L Absolute Neuts (auto) 8.5 H Sodium 134.0 L BUN 41 H Creatinine 1.47 H Est GFR ( Amer) 44 L Est GFR (MDRD) Non-Af 37 L Glucose 327 H Alkaline Phosphatase 149 H Albumin 3.4 L Urine Protein >=500 H Urine Glucose (UA) >=500 H Discharge - Discharge Clinical Impression: Noncompliance w/medication treatment due to intermit use of medication, Type 2 diabetes mellitus with hyperglycemia, with long-term current use of insulin, CKD (chronic kidney disease) stage 3, GFR 30-59 ml/min, Joana infection of genital region Acute thoracic back pain Qualifiers: Back pain laterality: midline Qualified Code(s): M54.6 - Pain in thoracic spine Fall from standing Qualifiers: Encounter type: initial encounter Qualified Code(s): W19.XXXA - Unspecified fall, initial encounter Condition: Stable Disposition: HOME, SELF-CARE Additional Instructions: Today there is no evidence of broken bones. I have prescribed lidocaine patches that may help with some of the pain in your back. Please leave them on for 12 hours and then remove them for 12 hours. Please take all of your medications as prescribed when you were discharged from the hospital earlier today. Please return to the emergency department for any new or concerning symptoms. Prescriptions: Lidocaine [Lidoderm 5% (700 mg) Transdermal Patch] 1 patch TP DAILY #10 adh..patch
[2020-02-25] MEDS ORDERED: LIDOCAINE 5% (700 MG) TRANSDERMAL ADH..PATCH TP ONE (01:41)
[2020-02-25 01:54] LABS: APPEARANCE,URINE CLEAR; BILIRUBIN,URINE NEGATIVE (NEGATIVE); COLOR,URINE YELLOW; GLUCOSE, URINE >=500 mg/dL (NEGATIVE); KETONES,URINE NEGATIVE (NEGATIVE); LEUKOCYTE ESTERASE,URINE NEGATIVE (NEGATIVE); NITRITE,URINE NEGATIVE (NEGATIVE); PROTEIN,URINE >=500 mg/dL (NEGATIVE); URINE SPECIFIC GRAVITY 1.016; UROBILINOGEN,URINE NEGATIVE mg/dL (<2.0)
--- NOTE | 2020-02-25 02:21 | RADIOLOGY REPORT (SQ) ---
INDICATION: fall, back pain. TECHNIQUE: 2 view(s) of the thoracic spine. COMPARISON: None FINDINGS: No evidence of acute displaced fracture. Alignment is anatomic. The facets and intervertebral joints are within normal limits for age. Vertebral body heights are well-maintained. Surrounding soft tissues are unremarkable. IMPRESSION: No evidence of acute displaced fracture of the thoracic spine.
--- NOTE | 2020-02-25 02:22 | RADIOLOGY REPORT (SQ) ---
INDICATION: fall, back pain. TECHNIQUE: 5 view(s) of the lumbar spine. Both obliques COMPARISON: None FINDINGS: No evidence of acute displaced fracture. Alignment is anatomic. The facets and intervertebral joints are within normal limits for age. Vertebral body heights are well-maintained. Vascular calcification. Moderate hard stool within the colon. IMPRESSION: No evidence of acute displaced fracture of the lumbar spine.
[2020-02-25 03:49] VITALS: BP 137/84
== END 2020-02-25 05:25 | disposition home or self-care (01) ==
LOC: ER 19:46
DX: M54.6 Pain in thoracic spine (principal); M79.604 Pain in right leg; R10.9 Unspecified abdominal pain; M54.9 Dorsalgia, unspecified; R07.81 Pleurodynia; S30.1XXA Contusion of abdominal wall, initial encounter; S80.212A Abrasion, left knee, initial encounter; S80.211A Abrasion, right knee, initial encounter; W19.XXXA Unspecified fall, initial encounter; Y93.89 Activity, other specified; I12.9 Hypertensive chronic kidney disease with stage 1 through stage 4 chronic kidney disease, or unspecified chronic kidney disease; E11.22 Type 2 diabetes mellitus with diabetic chronic kidney disease; N18.9 Chronic kidney disease, unspecified; Z91.14 Patient's other noncompliance with medication regimen; D63.1 Anemia in chronic kidney disease; L30.4 Erythema intertrigo; R32 Unspecified urinary incontinence; F17.200 Nicotine dependence, unspecified, uncomplicated; J44.9 Chronic obstructive pulmonary disease, unspecified; D72.829 Elevated white blood cell count, unspecified; Z79.2 Long term (current) use of antibiotics; Z91.010 Allergy to peanuts; Z88.0 Allergy status to penicillin; Z88.6 Allergy status to analgesic agent
CPT/HCPCS: 99283; 36415; 82962; 85025; 80053; 81001; 72110; 72070; J3490

== ENCOUNTER 2020-02-29 14:18 | Emergency (ER) | payer MEDICAID ==
[2020-02-29 14:54] LABS: ABSOLUTE BASOPHILS # (AUTO) 0.1 10^3/uL (0.0-0.2); ABSOLUTE EOSINOPHILS # (AUTO) 0.1 10^3/uL (0.0-0.6); ABSOLUTE LYMPHOCYTES (AUTO) 4.8 10^3/uL (0.5-4.7); ABSOLUTE MONOCYTES (AUTO) 0.9 10^3/uL (0.1-1.4); ABSOLUTE NEUT (AUTO) 7.6 10^3/uL (1.7-8.2); BASOPHILS % (AUTO) 0.9 % (0-2); EOSINOPHILS % (AUTO) 0.8 % (0-6); HEMATOCRIT 36.4 % (36.0-47.0); HEMOGLOBIN 12.3 g/dL (12.0-15.5); LYMPHOCYTES % (AUTO) 35.4 % (13-45); MEAN CORPUSCULAR HEMOGLOBIN 29.8 pg (27.0-33.4); MEAN CORPUSCULAR HGB CONC 33.8 g/dL (32.0-36.0); MEAN CORPUSCULAR VOLUME 88 fl (80-97); MONOCYTES % (AUTO) 6.6 % (3-13); PLATELET COUNT 396 10^3/uL (150-450); RED BLOOD COUNT 4.14 10^6/uL (3.72-5.28); RED CELL DISTRIBUTION WIDTH 13.3 % (11.5-14.0); SEGMENTED NEUTROPHILS % (AUTO) 56.3 % (42-78); TOTAL CELLS COUNTED % (AUTO) 100 %; WHITE BLOOD COUNT 13.5 10^3/uL (4.0-10.5)
[2020-02-29 14:59] LABS: INTERNATIONAL RATION (INR) 0.96; PROTHROMBIN TIME 12.7 SEC (11.4-15.4)
[2020-02-29 15:14] LABS: ALBUMIN 3.2 g/dL (3.5-5.0); ALKALINE PHOSPHATASE 124 U/L (38-126); ANION GAP 10 (5-19); ASPARTATE AMINO TRANSFERASE 22 U/L (14-36); BILIRUBIN,TOTAL 0.3 mg/dL (0.2-1.3); BLOOD UREA NITROGEN 26 mg/dL (7-20); CARBON DIOXIDE 19 mmol/L (22-30); CHLORIDE 106 mmol/L (98-107); CREATINE KINASE 52 U/L (30-135); GLUCOSE 284 mg/dL (75-110); POTASSIUM 4.8 mmol/L (3.6-5.0); TOTAL PROTEIN 6.5 g/dL (6.3-8.2)
[2020-02-29] MEDS ORDERED: LORAZEPAM 1 MG TABLET PO ONE (15:20)
[2020-02-29 15:29] LABS: CREATINE KINASE MB 1.61 ng/mL (<4.55); TROPONIN I 0.014 ng/mL
--- NOTE | 2020-02-29 15:33 | RADIOLOGY REPORT (SQ) ---
EXAM DESCRIPTION: CHEST SINGLE VIEW IMAGES COMPLETED DATE/TIME: 02/29/2020 3:19 pm REASON FOR STUDY: bed 7 chest pain COMPARISON: AP view of the chest from 02/17/2020. EXAM PARAMETERS: NUMBER OF VIEWS: One view. TECHNIQUE: An AP view of the chest was obtained. RADIATION DOSE: NA LIMITATIONS: None. FINDINGS: LUNGS AND PLEURA: No consolidation, pleural effusion or pneumothorax. MEDIASTINUM AND HILAR STRUCTURES: No mediastinal or hilar contour abnormality. HEART AND VASCULAR STRUCTURES: The cardiac silhouette and pulmonary vasculature are within normal bain its. BONES: No acute findings. HARDWARE: Intact left subclavian vein approach transvenous pacemaker. OTHER: No other finding. IMPRESSION: No acute cardiopulmonary process. TECHNICAL DOCUMENTATION: JOB ID: [id number] 2010 [employer]- All Rights Reserved Reading location - IP/workstation name: [email or web address]
[2020-02-29 16:04] LABS: VENOUS BLOOD BASE EXCESS -1.2 mmol/L; VENOUS BLOOD HCO3 23.5 mmol/L (20-32); VENOUS BLOOD PCO2 39.1 mmHg (35-63); VENOUS BLOOD PH 7.4 (7.30-7.42)
[2020-02-29 16:08] LABS: APPEARANCE,URINE SLIGHTLY-CLOUDY; BILIRUBIN,URINE NEGATIVE (NEGATIVE); COLOR,URINE YELLOW; GLUCOSE, URINE >=500 mg/dL (NEGATIVE); KETONES,URINE NEGATIVE (NEGATIVE); PROTEIN,URINE >=500 mg/dL (NEGATIVE); URINE SPECIFIC GRAVITY 1.025; UROBILINOGEN,URINE NEGATIVE mg/dL (<2.0)
[2020-02-29] MEDS ORDERED: NORMAL SALINE IV ONE (16:29)
[2020-02-29] MEDS ORDERED: NORMAL SALINE 1000 ML 1,000 ML IV ONE (16:29)
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
--- NOTE | 2020-03-01 00:24 | EKG REPORT ---
SEVERITY:- ABNORMAL ECG - SINUS RHYTHM LEFT ATRIAL ABNORMALITY PROBABLE ANTEROSEPTAL INFARCT, AGE INDETERM LATERAL LEADS ARE ALSO INVOLVED : Confirmed by: Jay Hong 01-Mar-2020 00:23:29
[2020-03-01] MEDS ORDERED: HYDROXYZINE PAMOATE 25 MG CAPSULE PO ONE (12:14)
[2020-03-01 12:18] VITALS: BP 147/76
== END 2020-03-01 12:34 | disposition home or self-care (01) ==
LOC: ER 14:18 → EEVIPCON 14:18 → ER 03-01 12:34
DX: R07.9 Chest pain, unspecified (principal); R11.2 Nausea with vomiting, unspecified; R19.7 Diarrhea, unspecified; F41.9 Anxiety disorder, unspecified; R05 Cough; R39.15 Urgency of urination; F17.200 Nicotine dependence, unspecified, uncomplicated; I10 Essential (primary) hypertension; I25.2 Old myocardial infarction; J44.9 Chronic obstructive pulmonary disease, unspecified; E11.9 Type 2 diabetes mellitus without complications; Z62.820 Parent-biological child conflict; Z95.0 Presence of cardiac pacemaker; Z88.8 Allergy status to other drugs, medicaments and biological substances; Z91.010 Allergy to peanuts; Z88.0 Allergy status to penicillin; Z88.6 Allergy status to analgesic agent
CPT/HCPCS: 93005; 99285; 96360; 36415; 87040; 82553; 82962; 82550; 83605; 85025; 85610; 80053; 81001; 84484; 82803; 71045; 93010; J3490; J7030; 87077

== ENCOUNTER 2020-03-04 15:40 | Emergency (ER) | payer MEDICAID ==
[2020-03-04] MEDS ORDERED: NORMAL SALINE 1000 ML 1,000 ML IV ONE (17:17)
[2020-03-04 17:39] LABS: ABSOLUTE BASOPHILS # (AUTO) 0.1 10^3/uL (0.0-0.2); ABSOLUTE LYMPHOCYTES (AUTO) 2.6 10^3/uL (0.5-4.7); ABSOLUTE MONOCYTES (AUTO) 0.5 10^3/uL (0.1-1.4); ABSOLUTE NEUT (AUTO) 6.5 10^3/uL (1.7-8.2); BASOPHILS % (AUTO) 0.8 % (0-2); EOSINOPHILS % (AUTO) 0.2 % (0-6); HEMATOCRIT 32.7 % (36.0-47.0); HEMOGLOBIN 11.5 g/dL (12.0-15.5); LYMPHOCYTES % (AUTO) 26.5 % (13-45); MEAN CORPUSCULAR HEMOGLOBIN 30.7 pg (27.0-33.4); MEAN CORPUSCULAR HGB CONC 35.1 g/dL (32.0-36.0); MEAN CORPUSCULAR VOLUME 88 fl (80-97); MONOCYTES % (AUTO) 5.5 % (3-13); PLATELET COUNT 312 10^3/uL (150-450); RED BLOOD COUNT 3.73 10^6/uL (3.72-5.28); RED CELL DISTRIBUTION WIDTH 13.4 % (11.5-14.0); TOTAL CELLS COUNTED % (AUTO) 100 %; WHITE BLOOD COUNT 9.8 10^3/uL (4.0-10.5)
[2020-03-04 17:40] LABS: ALBUMIN 2.8 g/dL (3.5-5.0); ALKALINE PHOSPHATASE 100 U/L (38-126); ANION GAP 8 (5-19); ASPARTATE AMINO TRANSFERASE 18 U/L (14-36); BILIRUBIN,TOTAL 0.3 mg/dL (0.2-1.3); BLOOD UREA NITROGEN 35 mg/dL (7-20); CALCIUM 8.8 mg/dL (8.4-10.2); CARBON DIOXIDE 22 mmol/L (22-30); CHLORIDE 100 mmol/L (98-107); POTASSIUM 4.4 mmol/L (3.6-5.0); TOTAL PROTEIN 5.6 g/dL (6.3-8.2)
[2020-03-04 17:53] LABS: GLUCOSE 406 mg/dL (75-110)
--- NOTE | 2020-03-04 19:21 | EKG REPORT ---
SEVERITY:- ABNORMAL ECG - SINUS RHYTHM ANTERIOR INFARCT, AGE INDETERMINATE : Confirmed by: Jay Hong 04-Mar-2020 19:20:17
[2020-03-04] MEDS ORDERED: NYSTATIN TOPICAL POWDER 15 GM TP ONE (19:56)
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
[2020-03-04 21:20] LABS: APPEARANCE,URINE CLEAR; BILIRUBIN,URINE NEGATIVE (NEGATIVE); COLOR,URINE YELLOW; GLUCOSE, URINE >=500 mg/dL (NEGATIVE); KETONES,URINE NEGATIVE (NEGATIVE); LEUKOCYTE ESTERASE,URINE NEGATIVE (NEGATIVE); NITRITE,URINE NEGATIVE (NEGATIVE); PROTEIN,URINE >=500 mg/dL (NEGATIVE); URINE SPECIFIC GRAVITY 1.012; UROBILINOGEN,URINE NEGATIVE mg/dL (<2.0)
[2020-03-04] MEDS ORDERED: INSULIN REG, HUMAN 100 UNIT/ML 3 ML VIAL (PYX) IV ONE (21:44)
[2020-03-04 22:55] VITALS: BP 146/81
== END 2020-03-04 22:49 | disposition home or self-care (01) ==
LOC: ER 15:40
DX: E11.65 Type 2 diabetes mellitus with hyperglycemia (principal); B37.49 Other urogenital candidiasis; R53.1 Weakness; R42 Dizziness and giddiness; F17.200 Nicotine dependence, unspecified, uncomplicated; Z60.8 Other problems related to social environment; I11.0 Hypertensive heart disease with heart failure; I50.9 Heart failure, unspecified; E78.00 Pure hypercholesterolemia, unspecified; Z91.010 Allergy to peanuts; Z88.0 Allergy status to penicillin; Z91.19 Patient's noncompliance with other medical treatment and regimen; I25.2 Old myocardial infarction
CPT/HCPCS: 93005; 99285; 96360; 96361; 36415; 82962; 85025; 80053; 81001; 93010; J7030; J3490

== ENCOUNTER 2020-03-06 13:01 | Emergency (ER) | payer MEDICAID ==
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
[2020-03-06 17:43] LABS: VENOUS BLOOD BASE EXCESS -0.6 mmol/L; VENOUS BLOOD HCO3 24.7 mmol/L (20-32); VENOUS BLOOD PH 7.38 (7.30-7.42)
[2020-03-06 18:04] LABS: ALBUMIN 3.3 g/dL (3.5-5.0); ALKALINE PHOSPHATASE 116 U/L (38-126); ANION GAP 5 (5-19); ASPARTATE AMINO TRANSFERASE 19 U/L (14-36); BILIRUBIN,TOTAL 0.3 mg/dL (0.2-1.3); BLOOD UREA NITROGEN 21 mg/dL (7-20); CALCIUM 9.2 mg/dL (8.4-10.2); CARBON DIOXIDE 24 mmol/L (22-30); CHLORIDE 105 mmol/L (98-107); GLUCOSE 265 mg/dL (75-110); POTASSIUM 4.4 mmol/L (3.6-5.0); TOTAL PROTEIN 6.5 g/dL (6.3-8.2)
[2020-03-06 18:09] LABS: ABSOLUTE BASOPHILS # (AUTO) 0.1 10^3/uL (0.0-0.2); ABSOLUTE EOSINOPHILS # (AUTO) 0.1 10^3/uL (0.0-0.6); ABSOLUTE LYMPHOCYTES (AUTO) 3.7 10^3/uL (0.5-4.7); ABSOLUTE MONOCYTES (AUTO) 0.9 10^3/uL (0.1-1.4); ABSOLUTE NEUT (AUTO) 10.3 10^3/uL (1.7-8.2); BASOPHILS % (AUTO) 0.4 % (0-2); EOSINOPHILS % (AUTO) 0.8 % (0-6); HEMATOCRIT 35.4 % (36.0-47.0); HEMOGLOBIN 11.9 g/dL (12.0-15.5); LYMPHOCYTES % (AUTO) 24.7 % (13-45); MEAN CORPUSCULAR HEMOGLOBIN 29.6 pg (27.0-33.4); MEAN CORPUSCULAR HGB CONC 33.7 g/dL (32.0-36.0); MEAN CORPUSCULAR VOLUME 88 fl (80-97); PLATELET COUNT 305 10^3/uL (150-450); RED BLOOD COUNT 4.03 10^6/uL (3.72-5.28); RED CELL DISTRIBUTION WIDTH 13.7 % (11.5-14.0); SEGMENTED NEUTROPHILS % (AUTO) 68.1 % (42-78); TOTAL CELLS COUNTED % (AUTO) 100 %; WHITE BLOOD COUNT 15.1 10^3/uL (4.0-10.5)
--- NOTE | 2020-03-06 18:34 | EKG REPORT ---
SEVERITY:- ABNORMAL ECG - SINUS RHYTHM CONSIDER ANTEROSEPTAL INFARCT NONSPECIFIC T ABNORMALITIES, ANT-LAT LEADS : Confirmed by: Jay Hong 06-Mar-2020 18:33:11
--- NOTE | 2020-03-06 19:09 | ER Document Report ---
ED General - General Chief Complaint: High Blood Sugar Stated Complaint: DIABETIC PROBLEMS Time Seen by Provider: 03/06/20 14:04 Mode of Arrival: Wheelchair TRAVEL OUTSIDE OF THE [place] IN LAST 30 DAYS: No - HPI Notes: Patient presents to the emergency department for evaluation. She complains of an infection in her groin area. She states her sugar has been high. She states to me her daughter will not take care of her. She states that her daughter has lied to, telling people she has "mental health issues." She states she wants to leave the [facility] and go to [place] for long-term care, but she states this not possible because her daughter "will not teach her how to use her the phone." Patient is verbally abusive to the staff member, will not comment on anything further. - Related Data Allergies/Adverse Reactions: lisinopril Allergy (Verified 03/06/20 14:04) peanut Allergy (Verified 03/06/20 14:04) Penicillins Allergy (Verified 03/06/20 14:04) pregabalin [From Lyrica] Allergy (Verified 03/06/20 14:04) fentanyl Adverse Reaction (Verified 03/06/20 14:04) ketorolac [From Toradol] Adverse Reaction (Verified 03/06/20 14:04) Past Medical History - General Information source: Patient - Social History Smoking Status: Unknown if Ever Smoked Family History: Reviewed & Not Pertinent - Past Medical History Cardiac Medical History: Reports: Hx Congestive Heart Failure, Hx Heart Attack, Hx Hypercholesterolemia, Hx Hypertension Pulmonary Medical History: Reports: Hx Asthma, Hx COPD Endocrine Medical History: Reports: Hx Diabetes Mellitus Type 2 Musculoskeletal Medical History: Reports Hx Arthritis Psychiatric Medical History: Reports: Hx Depression Past Surgical History: Reports: Hx Cardiac Surgery - pacemaker, Hx Section, Hx Cholecystectomy, Hx Hysterectomy, Hx Orthopedic Surgery - R foot bone biopsy Review of Systems - Review of Systems Constitutional: See HPI Skin: See HPI -: Yes All other systems reviewed and negative Physical Exam - Vital signs Vitals: Temp Pulse Resp BP Pulse Ox 97.5 F 103 H 18 134/60 H 100 03/06/20 13:24 03/06/20 13:24 03/06/20 13:24 03/06/20 13:24 03/06/20 13:24 - Notes Notes: This is a belligerent, verbally abusive 59-year-old female. She is awake and alert. She is active in the bed. She refuses to allow my exam. She has no apparent difficulty breathing, is not conversationally dyspneic. Her skin appears dry, normal coloring. She has no gross facial asymmetry, is moving all 4 extremities spontaneously. Course - Re-evaluation Re-evalutation: 03/06/20 19:05 Patient presents to the emergency department for evaluation. She had laboratory investigations as ordered through triage. I actually saw this patient yesterday. She was walking up and down the hallway without apparent difficulty. She was verbally abusive to multiple staff members. She continues to act this way today. She states to me that her blood sugar is too high. She is known to be noncompliant with her medications. Her blood sugar on lab evaluation today is 265. I did have the opportunity to examine her skin yesterday, she was diagnosed with intertriginous candidiasis. She was given nystatin powder. I will write her a prescription for more, which is the likely cause of her "infection down there." The patient has had case management discharge planning involved in the past. She states she does not have a manager case management. Discharge planning was consulted, they will follow-up with her tomorrow morning. Otherwise, she had a urinalysis yesterday, culture is pending. She is mildly hypertensive but otherwise her vital signs are unremarkable. All of her compl aints seem to be manageable on an outpatient basis. We will discharge her to home with nystatin prescription and follow-up by discharge planning. The importance of establishing with a primary care provider was stressed to the patient. - Vital Signs Vital signs: Temp Pulse Resp BP Pulse Ox 97.5 F 103 H 18 134/60 H 100 03/06/20 13:24 03/06/20 13:24 03/06/20 13:24 03/06/20 13:24 03/06/20 13:24 - Laboratory Result Diagrams: 03/06/20 17:25 03/06/20 17:25 Laboratory results interpreted by me: 03/06/20 03/06/20 03/06/20 14:56 17:25 17:25 WBC 15.1 H Hgb 11.9 L Hct 35.4 L Absolute Neuts (auto) 10.3 H Sodium 134.0 L BUN 21 H Glucose 265 H POC Glucose 352 H Albumin 3.3 L - EKG Interpretation by Me Additional EKG results interpreted by me: 03/06/20 19:07 Sinus mechanism. Normal axis and intervals. Nonspecific ST changes, but no acute ST elevation concerning for infarction. No significant change compared to prior study. Discharge - Discharge Clinical Impression: Joana infection of genital region, Agitated Condition: Stable Disposition: HOME, SELF-CARE Instructions: Diabetes ([facility]) Additional Instructions: You need to be compliant with your home medications. You need to follow-up with her primary care provider as soon as possible. Please add the nystatin powder onto the area of your rash. You have refused to allow me to examine you today. You are known to have a yeast rash in the folds of your groin, as seen yesterday. Please continue the nystatin powder. Discharge planning has been contacted, they will follow-up with you tomorrow in regards to addressing any further needs. Return to the ER with worsening.
[2020-03-06 19:59] VITALS: BP 127/73
== END 2020-03-06 19:59 | disposition home or self-care (01) ==
LOC: ER 13:01
DX: B37.49 Other urogenital candidiasis (principal); R45.1 Restlessness and agitation; E11.65 Type 2 diabetes mellitus with hyperglycemia; Z88.8 Allergy status to other drugs, medicaments and biological substances; Z88.0 Allergy status to penicillin; I11.0 Hypertensive heart disease with heart failure; I50.9 Heart failure, unspecified; J44.9 Chronic obstructive pulmonary disease, unspecified
CPT/HCPCS: 36415; 80053; 82803; 82962; 83735; 85025; 93005; 93010; 99285